=== PATIENT | female | born 1950 | race Caucasian/White ===

== ENCOUNTER → 2020-02-06 09:35 | Outpatient (REF) | payer MEDICARE, OTHER, SELFPAY ==
--- NOTE | 2020-02-06 09:30 | CA_ITS ---
Transthoracic Echocardiogram Patient (Last, First, Middle): Madison House J Gender: Female Date of : 1950 Age: 69 Procedure Date: 02/06/2020 Procedure Type: Transthoracic Echocardiogram Location: OP Height: 167.64 cm Weight: 73.48 kg BSA: 1.83 m2 Heart Rate: bpm BP: 124 / 72 mmHg Aviation Medicine Specialist: TRI Dasilva MD: Rich Daniels MD Occupational Therapy Specialist: Rich Daniels MD [place] [facility] [place]: Good ECG Rhythm: Sinus Conclusions: - 1. Normal LV systolic function with restrictive filling pattern 2. Moderately dilated left atrium 3. Ierr-mu-nqyuewld aortic stenosis 4. Moderate mitral annular calcification with mild mitral regurgitation 5. Normal RV systolic pressure 6. No pericardial effusion Findings Left Ventricle Normal left ventricular size, thickness, and systolic function. The visually estimated ejection fraction is between 60-65%. Spectral Doppler is indicative of a restrictive filling pattern. Right Ventricle Normal right ventricular cavity size and systolic function. Atria The left atrium is moderately dilated. There is no evidence of interatrial shunt. The right atrium is mildly dilated. Aortic Valve There is mild calcification of the aortic valve. There is mild thickening of the aortic valve. There is mild to moderate aortic valve stenosis. The peak aortic gradient is 22 mmHg.The mean gradient is 13 mmHg. There is no aortic valve regurgitation. Mitral Valve There is mild anterior and posterior mitral leaflet thickening. There is moderate mitral annular calcification. There is mild mitral valve regurgitation. There is no mitral valve stenosis. Pulmonic Valve The pulmonic valve was not well visualized. Tricuspid Valve Likely normal tricuspid valve structure and function. There is mild tricuspid valve regurgitation. The right ventricular systolic pressure is normal. The right ventricular systolic pressure is 25 mmHg. Normal right atrial pressure. There is no evidence of pulmonary hypertension. Great Vessels All visible segments of the aorta are normal in size. The pulmonary artery was not well visualized. Venous The inferior vena cava is normal in size and collapses greater than 50% with inspiration. Pericardium/Pleural There is no evidence of pericardial effusion. Prior Study Comparison No previous study in the last 5 years for comparison Measurements 2D Linear Measurements RVIDd: 2.76 RVIDd Index: 1.51 IVSd: 0.82 0.6-0.9/0.6-1.0 cm LVIDd: 4.79 3.9-5.3/4.2-5.9 cm LVIDd Index: 2.62 2.4-3.2/2.2-3.1 cm/m2 LVIDs: 3.45 2.0-3.6 cm LVPWd: 1.18 0.7-1.1 cm Ao Root: 2.60 2.1-3.5 cm LA Diam: 4.80 2.7-3.8/3.0-4.0 cm LAIDs Index: 2.62 1.5-2.3 cm/m2 LV Mass: 211.41 67-162/88-224 g LV Mass Index: 115.53 43-95/49-115 g/m2 LVOT Diam: 2.00 3.0+(-)1.3 cm 2D Systolic Function EF 4C: 63.10 >55% EF 2C: 62.80 >55% EF BiP: 61.90 >55% Mitral Valve E'Lateral: 7.35 E'Medial: 6.48 MR Vol - PW Dopp: 24.05 MR VTI: 1.85 MR ERO: 13.00 MR Alias Gene: 0.42 MR RAD: 0.50 Aortic Valve AoV Pk Gene: 2.33 AoV Mn Gene: 1.70 AoV VTI: 0.53 AoV Pk Grad: 22.00 Aov Mn Grad: 13.00 ARNOLD Cont.VTI: 1.00 LVOT LVOT Pk Gene: 0.78 LVOT Mn Gene: 0.52 LVOT VTI: 0.17 LVOT Pk Grad: 2.00 LVOT Mn Grad: 1.00 LVOT Diam: 2.00 LVOT Area: 3.14 Diastolic Function E'Medial: 6.48 E' Laterial: 7.35 Tricuspid Valve TR Pk Gene: 2.32 TR Pk Grad: 22.00 RA Press: 3.00 RVSP: 25.00 Great Vessels Aorta Ao Root-2D: 2.60 2.0-3.7 cm Ao Asc: 2.60 2.1-3.4 cm Ao Arch: 2.80 Updated in Other Vendor System with Status of Final Rich Daniels MD electronically signed on 02/06/2020 3:50:58 PM with status of Final
== END ==
LOC: HO.CARD 09:35
PROVIDERS: PCP Internal Medicine; Visit Provider Internal Medicine Cardiovascular Disease
DX: I49.5 Sick sinus syndrome (principal); I50.9 Heart failure, unspecified; I48.0 Paroxysmal atrial fibrillation; I25.119 Atherosclerotic heart disease of native coronary artery with unspecified angina pectoris; I35.0 Nonrheumatic aortic (valve) stenosis; Z95.0 Presence of cardiac pacemaker; Z95.5 Presence of coronary angioplasty implant and graft
CPT/HCPCS: 93312

== ENCOUNTER → 2020-03-09 13:12 | Outpatient (BNVA) | payer MEDICARE, SELFPAY | PROVIDERS: PCP Internal Medicine; Referring Provider Internal Medicine; Visit Provider Internal Medicine Cardiovascular Disease | DX: I48.0 Paroxysmal atrial fibrillation (principal); I25.10 Atherosclerotic heart disease of native coronary artery without angina pectoris; I50.30 Unspecified diastolic (congestive) heart failure; I35.0 Nonrheumatic aortic (valve) stenosis; Z79.01 Long term (current) use of anticoagulants; Z86.79 Personal history of other diseases of the circulatory system; Z45.018 Encounter for adjustment and management of other part of cardiac pacemaker; Z79.899 Other long term (current) drug therapy | CPT/HCPCS: 93005; 99212 ==

== ENCOUNTER → 2020-09-15 10:39 | Outpatient (BNVA) | payer MEDICARE, SELFPAY | PROVIDERS: PCP Internal Medicine; Referring Provider Internal Medicine; Visit Provider Internal Medicine Cardiovascular Disease | DX: Z45.018 Encounter for adjustment and management of other part of cardiac pacemaker (principal); I48.0 Paroxysmal atrial fibrillation; I25.10 Atherosclerotic heart disease of native coronary artery without angina pectoris; I50.30 Unspecified diastolic (congestive) heart failure; I35.0 Nonrheumatic aortic (valve) stenosis | CPT/HCPCS: 99212 ==

== ENCOUNTER → 2021-02-07 11:15 | Outpatient (REF) | payer BC, SELFPAY ==
--- NOTE | 2021-02-07 11:20 | CA_ITS ---
Transthoracic Echocardiogram Patient (Last, First, Middle): Madison House J Gender: Female Date of : 1950 Age: 70 Procedure Date: 02/07/2021 Procedure Type: Transthoracic Echocardiogram Location: OP Height: 165.1 cm Weight: 70.31 kg BSA: 1.78 m2 Heart Rate: bpm BP: 118 / 62 mmHg Non Clinical Advisor: Referring MD: Rich Daniels MD Symptoms: I35.0 - Nonrheumatic aortic (valve) stenosis Study Quality: Good ECG Rhythm: Sinus Conclusions: - The left ventricular systolic function is normal. The calculated ejection fraction is 55% by biplane method. - The left atrium is severely dilated. - There is mild to moderate aortic valve stenosis. - There is mild mitral valve regurgitation. Findings Left Ventricle Normal left ventricular cavity size. There is normal left ventricular wall thickness. The left ventricular systolic function is normal. The calculated ejection fraction is 55% by biplane method. There is no evidence of regional wall motion abnormalities. Diastolic function is indeterminate on the basis of available data. E/E prime ratio is >15, consistent with elevated filling pressures. Right Ventricle There is a pacemaker wire seen in the right ventricle. Atria The left atrium is severely dilated. The right atrium is normal in size. Aortic Valve There is moderate calcification of the aortic valve. There is mild to moderate aortic valve stenosis. The peak aortic velocity is 2.25 m/s with a calculated peak gradient of 20 mmHg. The mean gradient is 10 mmHg. The aortic valve area is 1.23 cm2. There is no aortic valve regurgitation. Dimensionless index 0.36. Stroke volume index 33cc. Mitral Valve There is mild mitral annular calcification. There is mild mitral valve regurgitation. There is no mitral valve stenosis. Pulmonic Valve The pulmonic valve was not well visualized. Tricuspid Valve Normal tricuspid valve structure. There is mild tricuspid valve regurgitation. The pulmonary artery systolic pressure is normal. Great Vessels The aortic annulus, sinuses of valsalva, and asc aorta are normal in size. Venous The inferior vena cava is normal in size and collapses greater than 50% with inspiration. Pericardium/Pleural There is no evidence of pericardial effusion. Prior Study Comparison No significant change compared to prior study dated: 02/06/2020. Measurements 2D Linear Measurements Ao Root: 2.90 2.1-3.5 cm LVOT Diam: 2.00 3.0+(-)1.3 cm 2D Systolic Function EF 4C: 52.00 >55% EF 2C: 59.60 >55% EF BiP: 55.40 >55% Mitral Valve MV Pk E: 1.32 MV Decel Time: 199.00 E'Lateral: 10.70 E'Medial: 6.96 E/E' Med: 19.00 E/E' Lat: 12.30 PHT: 58.00 MVA PHT: 3.79 Decel [place]: 6.63 Aortic Valve AoV Pk Gene: 2.25 AoV Mn Gene: 1.44 AoV VTI: 0.49 AoV Pk Grad: 20.00 Aov Mn Grad: 10.00 ARNOLD Cont.VTI: 1.23 LVOT LVOT Pk Gene: 0.81 LVOT Mn Gene: 0.53 LVOT VTI: 0.19 LVOT Pk Grad: 3.00 LVOT Mn Grad: 1.00 LVOT Diam: 2.00 LVOT Area: 3.14 Diastolic Function MV Pk E: 1.32 E'Medial: 6.96 E/E' Med: 19.00 E' Laterial: 10.70 E/E' Lat: 12.30 Right Ventricle TVS' Gene: 12.00 Tricuspid Valve TR Pk Gene: 2.56 TR Pk Grad: 26.00 Great Vessels Aorta Ao Root-2D: 2.90 2.0-3.7 cm Ao Asc: 2.60 2.1-3.4 cm Pulmonary Valve PV Pk Gene: 0.96 Peak PV Grad: 4.00 Updated in Other Vendor System with Status of Final Albert Crouch MD electronically signed on 02/07/2021 1:52:05 PM with status of Final
== END ==
LOC: HO.CARD 11:15
PROVIDERS: PCP Internal Medicine; Visit Provider Internal Medicine Cardiovascular Disease
DX: I35.0 Nonrheumatic aortic (valve) stenosis (principal)
CPT/HCPCS: 93306

== ENCOUNTER → 2021-02-15 14:26 | Outpatient (BNVA) | payer BC, SELFPAY | PROVIDERS: Visit Provider Internal Medicine Cardiovascular Disease | DX: Z45.018 Encounter for adjustment and management of other part of cardiac pacemaker (principal); I48.0 Paroxysmal atrial fibrillation; I25.10 Atherosclerotic heart disease of native coronary artery without angina pectoris; I50.30 Unspecified diastolic (congestive) heart failure; I35.0 Nonrheumatic aortic (valve) stenosis | CPT/HCPCS: 93005 ==

== ENCOUNTER → 2021-08-16 11:02 | Outpatient (BNVA) | payer BC, SELFPAY | PROVIDERS: PCP Internal Medicine; Visit Provider Internal Medicine Cardiovascular Disease | DX: Z45.018 Encounter for adjustment and management of other part of cardiac pacemaker (principal); I48.0 Paroxysmal atrial fibrillation; I50.30 Unspecified diastolic (congestive) heart failure; I25.10 Atherosclerotic heart disease of native coronary artery without angina pectoris; I35.0 Nonrheumatic aortic (valve) stenosis | CPT/HCPCS: 93005 ==

== ENCOUNTER → 2022-02-06 08:21 | Outpatient (REF) | payer BC, SELFPAY ==
--- NOTE | 2022-02-06 08:26 | CA_ITS ---
Transthoracic Echocardiogram Patient (Last, First, Middle): Madison House J Gender: Female Date of : 1950 Age: 71 Procedure Date: 02/06/2022 Procedure Type: Transthoracic Echocardiogram Location: OP Height: 167.64 cm Weight: 74.84 kg BSA: 1.84 m2 Heart Rate: 65 bpm BP: 125 / 65 mmHg Case Specialist: KENYON Referring MD: Rich Daniels MD Paper Cup Machine Operator: Rich Daniels MD Symptoms: I35.0 - Nonrheumatic aortic (valve) stenosis Study Quality: Good ECG Rhythm: Sinus Conclusions: - 1. Normal LV systolic function with grade 3 diastolic dysfunction 2. At least moderate left atrial enlargement 3. Moderate aortic stenosis with paradoxical low-flow 4. Normal RV systolic pressure 5. No gross pericardial effusion Findings Left Ventricle Normal left ventricular size and systolic function. There is mildly increased left ventricular wall thickness. The visually estimated ejection fraction is between 55-60%. Spectral Doppler is indicative of a restrictive filling pattern. Elevated filling pressures. E/E prime ratio is >15, consistent with elevated filling pressures. Evidence suggests grade III (severe) diastolic dysfunction. Right Ventricle Normal right ventricular cavity size and systolic function. There is a pacemaker wire seen in the right ventricle. Atria The left atrium is moderately dilated. There is no evidence of interatrial shunt. The right atrium is normal in size. A pacemaker wire is identified in the right atrium. Aortic Valve There is moderate calcification of the aortic valve. There is moderate thickening of the aortic valve. There is moderate aortic valve stenosis. The mean gradient is 17 mmHg. There is no aortic valve regurgitation. dimensionless index calculated at 0.33. Mitral Valve There is mild anterior and moderate posterior mitral leaflet thickening. There is moderate mitral annular calcification. There is trace mitral valve regurgitation. There is no mitral valve stenosis. Pulmonic Valve The pulmonic valve was not well visualized. Tricuspid Valve Likely normal tricuspid valve structure and function. There is mild tricuspid valve regurgitation. The right ventricular systolic pressure is normal. The right ventricular systolic pressure is 17 mmHg. Normal right atrial pressure. There is no evidence of pulmonary hypertension. Great Vessels All visible segments of the aorta are normal in size. The pulmonary artery was not well visualized. Venous The inferior vena cava is normal in size and collapses greater than 50% with inspiration. Pericardium/Pleural There is no evidence of pericardial effusion. Prior Study Comparison Changes noted compared to prior study dated: 02/07/2021. aortic stenosis is moderate Measurements 2D Linear Measurements IVSd: 1.20 0.6-0.9/0.6-1.0 cm LVIDd: 4.06 3.9-5.3/4.2-5.9 cm LVIDd Index: 2.21 2.4-3.2/2.2-3.1 cm/m2 LVIDs: 3.25 2.0-3.6 cm LVPWd: 1.22 0.7-1.1 cm LA Diam: 5.00 2.7-3.8/3.0-4.0 cm LAIDs Index: 2.72 1.5-2.3 cm/m2 LV Mass: 213.38 67-162/88-224 g LV Mass Index: 115.97 43-95/49-115 g/m2 LVOT Diam: 1.80 3.0+(-)1.3 cm 2D Systolic Function EF 4C: 59.40 >55% EF 2C: 52.70 >55% Mitral Valve MV Pk E: 1.32 MV PK A: 0.33 MV Decel Time: 183.00 E/A: 4.00 E'Lateral: 6.64 E'Medial: 5.77 E/E' Med: 22.90 E/E' Lat: 19.90 PHT: 54.00 MVA PHT: 4.07 Decel [place]: 7.19 Aortic Valve AoV Pk Gene: 2.36 AoV Mn Gene: 1.68 AoV VTI: 0.59 AoV Pk Grad: 22.00 Aov Mn Grad: 17.00 ARNOLD Cont.VTI: 0.83 LVOT LVOT Pk Gene: 0.80 LVOT Mn Gene: 0.55 LVOT VTI: 0.19 LVOT Pk Grad: 3.00 LVOT Mn Grad: 2.00 LVOT Diam: 1.80 LVOT Area: 2.54 Diastolic Function MV Pk E: 1.32 MV Pk A: 0.33 E/A: 4.00 E'Medial: 5.77 E/E' Med: 22.90 E' Laterial: 6.64 E/E' Lat: 19.90 Right Ventricle TAPSE (mm): 19.50 TVS' Gene: 10.40 Tricuspid Valve TR Pk Gene: 1.89 TR Pk Grad: 14.00 RA Press: 3.00 RVSP: 17.00 Great Vessels Aorta Sinus of Valsalva: 3.00 2.0-3.5 cm Ao Asc: 3.50 2.1-3.4 cm Pulmonary Valve PV Pk Gene: 1.10 Peak PV Grad: 5.00 Updated in Other Vendor System with Status of Final Rich Daniels MD electronically signed on 02/06/2022 6:51:38 PM with status of Final
== END ==
LOC: HO.CARD 08:21
PROVIDERS: PCP Internal Medicine; Visit Provider Internal Medicine Cardiovascular Disease
DX: I35.0 Nonrheumatic aortic (valve) stenosis (principal)
CPT/HCPCS: 93306

== ENCOUNTER → 2022-02-27 14:12 | Outpatient (BNVA) | payer BC, SELFPAY | PROVIDERS: PCP Internal Medicine; Visit Provider Internal Medicine Cardiovascular Disease | DX: Z45.018 Encounter for adjustment and management of other part of cardiac pacemaker (principal); I50.30 Unspecified diastolic (congestive) heart failure; I35.0 Nonrheumatic aortic (valve) stenosis; I25.10 Atherosclerotic heart disease of native coronary artery without angina pectoris; I48.0 Paroxysmal atrial fibrillation | CPT/HCPCS: 93005; 93280 ==

== ENCOUNTER → 2022-08-24 10:28 | Outpatient (BNVA) | payer BC, SELFPAY | PROVIDERS: PCP Internal Medicine; Referring Provider Internal Medicine; Visit Provider Internal Medicine Cardiovascular Disease | DX: I48.92 Unspecified atrial flutter (principal); I73.9 Peripheral vascular disease, unspecified; I25.10 Atherosclerotic heart disease of native coronary artery without angina pectoris; I50.30 Unspecified diastolic (congestive) heart failure; I35.0 Nonrheumatic aortic (valve) stenosis; Z95.0 Presence of cardiac pacemaker | CPT/HCPCS: 93005; 93280 ==

== ENCOUNTER → 2022-08-30 08:53 | Outpatient (BNVA) | payer BC, SELFPAY | PROVIDERS: PCP Internal Medicine; Visit Provider Internal Medicine Cardiovascular Disease | DX: Z13.89 Encounter for screening for other disorder (principal) ==

== ENCOUNTER → 2022-09-01 12:26 | Day surgery (SDC) | payer BC, SELFPAY ==
--- NOTE | 2022-08-31 11:03 | HO.ANESPROP2 ---
HPI - Anesthesia Eval Consult details Narrative: 71yo F for Cardioversion Eliquis for afib Pacer in situ [facility] Active Problems Active Problems: All Active Problems (Updated 08/24/22 @ 11:22 by Rich Daniels MD) Claudication (Acute) Atrial flutter (Acute) Paroxysmal atrial fibrillation (Acute) Sick sinus syndrome (Acute) Cardiac pacemaker in situ (Acute) CAD (coronary artery disease) (Acute) (HFpEF) heart failure with preserved ejection fraction (Acute) Aortic stenosis (Acute) Hyperlipidemia (Acute) HTN (hypertension) (Acute) Past Medical History Medical History (HFpEF) heart failure with preserved ejection fraction Aortic stenosis CAD (coronary artery disease) Cardiac pacemaker in situ HTN (hypertension) Hyperlipidemia Paroxysmal atrial fibrillation Sick sinus syndrome Surgical History Surgical History Stented coronary artery Meds Allergies Allergy/AdvReac Type Severity Reaction Status Date / Time codeine [CODEINE] Allergy Unknown TACHYCARDIA, Verified 08/24/22 11:01 HIVES, DIZZINESS Home Medications Medication Instructions Recorded Confirmed Last Taken Type citalopram 10 mg tablet 10 mg PO DAILY 03/09/20 08/24/22 Unknown History citalopram 20 mg tablet 20 mg PO DAILY 03/09/20 08/24/22 Unknown History latanoprost 0.005 % eye drops drp ophthalmic (eye) 03/09/20 08/24/22 Unknown History rosuvastatin 10 mg tablet 10 mg PO BEDTIME 03/09/20 08/24/22 Unknown History Exam Exam Date and Time: August 31, 2022 1103 Narrative Narrative: EKG 08/2022 apid heart rate with rapid atrial activity with irregular rhythm most consistent with atrial flutter with variable conduction with later part of EKG showing ventricular pacing Cardiac Device Check 08/2022 Details: Dual-chamber [place] pacemaker in place programmed in DDDR at 70 beats per minute.? Atrial telemetry shows persistent atrial flutter, unknown duration.? Atrial sensitivity was changed to 0.4 mV.? Atrial pacing thresholds were not checked.? Ventricular pacing thresholds adequate and in our capture mode.? Ventricular sensing is adequate.? Pacing lead impedance is stable.? Battery life is excellent. ECHO 02/2022 Conclusions: - 1. Normal LV systolic function with grade 3 diastolic? dysfunction? 2. At least moderate left atrial enlargement ? 3. Moderate aortic stenosis with paradoxical low-flow? 4. Normal RV systolic pressure ? 5. No gross pericardial effusion ? ? ? Assessment and Plan Assessment Anesthesia Assessment: Chart Reviewed
[2022-09-01 06:23] VITALS: BMI 26.6
--- NOTE | 2022-09-01 12:15 | MHC.SHP ---
Pre-Procedural Eval Section A Date of Service: 09/01/22 The patient is an INPATIENT: No Changes since office visit: Yes Patient answered all questions; No Cold of Flu in the past 2 weeks, No New Medical Problems and No Changes in Medication The History & Physical has been completed within 30 days and I have reviewed it.: Yes Section B Chief Complaint: Unspecified atrial flutter Allergies: Allergies Allergy/AdvReac Type Severity Reaction Status Date / Time codeine [CODEINE] Allergy Unknown TACHYCARDIA, Verified 08/24/22 11:01 HIVES, DIZZINESS Plan I have reviewed the history and physical and performed a pertinent physical examination on my patient. No changes have occurred unless specified. Time Spent With Patient Time: Total time managing care of this patient today ____ minutes.
[2022-09-01 12:44] VITALS: BP 131/80; PULSE 78; RESP 18; TEMP 36.3; O2SAT 98
--- NOTE | 2022-09-01 12:58 | PC.NURSE ---
dr hernandez at beside interrogating pacemaker pt nsr denies pain cardioversion cancelled f/u with dr patel september 25 pt aware
--- NOTE | 2022-09-01 13:06 | PM.EVENT ---
Event Note Date of Service: 09/01/22 Event Note: Patient presented for cardioversion. However is noted to be in normal rhythm. Pacemaker was interrogated and confirmed that patient was in atrially paced rhythm. Atrial pacing thresholds were checked and were excellent and reprogrammed. Pacing rate was increased from 65 beats per minute to 70 beats per minute Time Spent With Patient Time: Total time managing care of this patient today ____ minutes.
== END ==
PROVIDERS: PCP Internal Medicine; Visit Provider Internal Medicine Cardiovascular Disease
DX: I48.92 Unspecified atrial flutter (principal); Z53.8 Procedure and treatment not carried out for other reasons; Z79.01 Long term (current) use of anticoagulants; Z95.0 Presence of cardiac pacemaker

== ENCOUNTER 2022-09-13 09:55 | Outpatient (REF) | payer BC, SELFPAY ==
--- NOTE | ~2022-09-13 | US_ITS ---
EXAMINATION: NONINVASIVE ASSESSMENT OF THE ARTERIES OF BOTH LOWER EXTREMITIES WITH BILATERAL LOWER EXTREMITY DUPLE CLINICAL INFORMATION: Atherosclerotic disease TECHNIQUE: Bilateral lower extremity Doppler techniques with wave form analysis and measurement of velocities in the common femoral, profunda femoral, superficial femoral, popliteal and tibial arteries. The study was performed only at rest. COMPARISON: None FINDINGS: a) AT REST: RIGHT LEG: . Right direct duplex Doppler findings: Calcified plaque. Mild luminal narrowing of the distal superficial femoral artery. * Common femoral artery: 124 cm/s, Diastolic flow reversal: Yes * Superficial femoral artery (proximal, mid, distal): 7976 and 53 cm/s, Diastolic flow reversal: Biphasic waveform * Popliteal artery: 32 cm/s, Diastolic flow reversal: Biphasic waveform * Posterior tibial artery: 46 cm/s, Diastolic flow reversal: Biphasic waveform LEFT LEG: Left direct duplex Doppler findings: Calcified plaque. Mild luminal narrowing of the distal superficial femoral artery. * Common femoral artery: 98 cm/s, Diastolic flow reversal: Yes * Superficial femoral artery (proximal, mid, distal): 110, 83 and 47 cm/s, Diastolic flow reversal: Triphasic proximally and biphasic distally. * Popliteal artery: 29 cm/s, Diastolic flow reversal: Biphasic * Posterior tibial artery: 59 cm/s, Diastolic flow reversal: Biphasic * US/US arterial duplex LE BI IMPRESSION: Mild atherosclerotic disease. Bilateral calcified plaque and mild luminal narrowing of the distal superficial femoral arteries. No hemodynamically significant stenosis.
== END 2022-09-13 09:56 | disposition home or self-care (01) ==
LOC: HO.US 09:55
PROVIDERS: PCP Internal Medicine; Visit Provider Internal Medicine Cardiovascular Disease
DX: I25.10 Atherosclerotic heart disease of native coronary artery without angina pectoris (principal); I73.9 Peripheral vascular disease, unspecified
CPT/HCPCS: 93925

== ENCOUNTER → 2022-09-25 11:25 | Outpatient (BNVA) | payer BC, SELFPAY | PROVIDERS: PCP Internal Medicine; Referring Provider Internal Medicine; Visit Provider Internal Medicine Cardiovascular Disease | DX: I48.0 Paroxysmal atrial fibrillation (principal); Z95.0 Presence of cardiac pacemaker | CPT/HCPCS: 93005; 93280 ==

== ENCOUNTER → 2022-12-13 23:59 | Outpatient (BNV) | payer BC, SELFPAY ==
--- NOTE | 2022-12-18 08:56 | A.OFFVIS_ITS ---
Intake Intake Visit Reasons: Remote device check- [facility] Allergies codeine [CODEINE] Allergy (Unknown, Verified 09/25/22 11:37) TACHYCARDIA, HIVES, DIZZINESS PFSH Medical History (HFpEF) heart failure with preserved ejection fraction Aortic stenosis CAD (coronary artery disease) Cardiac pacemaker in situ HTN (hypertension) Hyperlipidemia Paroxysmal atrial fibrillation Sick sinus syndrome Surgical History Stented coronary artery Office Procedures Cardiac Device Check Cardiac Device Check Details: Remote pacemaker report generated 12/13/2022. Pacemaker function is adequate. T otal burden of atrial fibrillation less than 1% [id number] Cardiac Device Interrogation, pacemaker Procedure code (CPT) selection complete Coding Level of Care Code Procedure Only Diagnoses CPT Codes Cardiac Device Check - Cardiac Device 12: [id number] Cardiac Device Interroga tion, pacemaker ([id number])
== END ==
PROVIDERS: PCP Internal Medicine; Visit Provider Internal Medicine Cardiovascular Disease
DX: I48.0 Paroxysmal atrial fibrillation (principal); Z95.0 Presence of cardiac pacemaker
CPT/HCPCS: 93294

== ENCOUNTER → 2023-03-07 10:46 | Outpatient (REF) | payer MEDICARE, SELFPAY ==
--- NOTE | 2023-03-07 10:48 | CA_ITS ---
Transthoracic Echocardiogram Patient (Last, First, Middle): Madison House J Gender: Female Date of : 1950 Age: 72 Procedure Date: 03/07/2023 Procedure Type: Transthoracic Echocardiogram Location: OP Height: 165.1 cm Weight: 72.58 kg BSA: 1.80 m2 Heart Rate: 70 bpm BP: 116 / 78 mmHg Auto Appraiser: DARSHANA Referring MD: Rich Daniels MD Clinical Resource Director: Rich Daniels MD Symptoms: I35.0 - Nonrheumatic aortic (valve) stenosis Study Quality: Adequate ECG Rhythm: Sinus Conclusions: - 1. Normal LV ejection fraction of 60 65% with grade 3 diastolic dysfunction 2. Severely dilated left atrium 3. Moderate to severe aortic stenosis 4. Mild mitral regurgitation 5. Upper limits of normal RV systolic pressure 6. Upper limits of normal ascending aortic size 7. No gross pericardial effusion Findings Left Ventricle Normal left ventricular size, thickness, and systolic function. The visually estimated ejection fraction is between 60-65%. Spectral Doppler is indicative of a restrictive filling pattern. E/E prime ratio is >15, consistent with elevated filling pressures. Evidence suggests grade III (severe) diastolic dysfunction. Right Ventricle Normal right ventricular cavity size and systolic function. There is a pacemaker wire seen in the right ventricle. Atria The left atrium is severely dilated. There is no evidence of interatrial shunt. The right atrium is mildly dilated. A pacemaker wire is identified in the right atrium. Aortic Valve There is moderate calcification of the aortic valve. There is moderate thickening of the aortic valve. There is moderate to severe aortic valve stenosis. The mean gradient is 23 mmHg. The aortic valve area is 0.86 cm2. There is no aortic valve regurgitation. dimensionless index is at 0.27 consistent with moderate to severe aortic stenosis Mitral Valve There is mild anterior and moderate posterior mitral leaflet thickening. There is moderate mitral annular calcification. There is mild mitral valve regurgitation. There is no mitral valve stenosis. Pulmonic Valve The pulmonic valve is likely normal. Tricuspid Valve Normal tricuspid valve structure. There is mild tricuspid valve regurgitation. Normal right atrial pressure. There is no evidence of pulmonary hypertension. Great Vessels The pulmonary artery was not well visualized. Venous The inferior vena cava is normal in size and collapses greater than 50% with inspiration. Pericardium/Pleural There is no evidence of pericardial effusion. Prior Study Comparison Changes noted compared to prior study dated: 02/06/2022. aortic stenosis is moderate to severe Measurements 2D Linear Measurements IVSd: 1.15 0.6-0.9/0.6-1.0 cm LVIDd: 4.61 3.9-5.3/4.2-5.9 cm LVIDd Index: 2.56 2.4-3.2/2.2-3.1 cm/m2 LVIDs: 2.58 2.0-3.6 cm LVPWd: 0.79 0.7-1.1 cm LA Diam: 5.50 2.7-3.8/3.0-4.0 cm LAIDs Index: 3.06 1.5-2.3 cm/m2 LV Mass: 190.90 67-162/88-224 g LV Mass Index: 106.05 43-95/49-115 g/m2 LVOT Diam: 2.00 3.0+(-)1.3 cm 2D Systolic Function EF 4C: 68.70 >55% EF 2C: 54.10 >55% EF BiP: 62.50 >55% Mitral Valve MV VTI: 0.33 MV Pk Gene: 1.52 MV Mn Gene: 0.79 MV Pk Grad: 9.00 MV Mn Grad: 3.00 MV Pk E: 1.35 MV PK A: 0.41 MV Decel Time: 161.00 E/A: 3.30 E'Lateral: 6.37 E'Medial: 5.50 E/E' Med: 24.50 E/E' Lat: 21.20 PHT: 47.00 MVA PHT: 4.68 MVA Continuity: 1.99 Decel [place]: 8.39 Aortic Valve AoV Pk Gene: 3.14 AoV Mn Gene: 2.27 AoV VTI: 0.76 AoV Pk Grad: 39.00 Aov Mn Grad: 23.00 ARNOLD Cont.VTI: 0.86 LVOT LVOT Pk Gene: 0.91 LVOT Mn Gene: 0.65 LVOT VTI: 0.21 LVOT Pk Grad: 3.00 LVOT Mn Grad: 2.00 LVOT Diam: 2.00 LVOT Area: 3.14 Diastolic Function MV Pk E: 1.35 MV Pk A: 0.41 E/A: 3.30 E'Medial: 5.50 E/E' Med: 24.50 E' Laterial: 6.37 E/E' Lat: 21.20 Right Ventricle TAPSE (mm): 22.20 TVS' Gene: 13.10 Tricuspid Valve TR Pk Gene: 2.95 TR Pk Grad: 35.00 RA Press: 3.00 RVSP: 38.00 Great Vessels Aorta Sinus of Valsalva: 2.50 2.0-3.5 cm Ao Asc: 3.50 2.1-3.4 cm Pulmonary Veins Pulm Vein S/D 0.60 Pulmonary Valve PV Pk Gene: 0.89 Peak PV Grad: 3.00 Updated in Other Vendor System with Status of Final Rich Daniels MD electronically signed on 03/07/2023 3:36:01 PM with status of Final
== END ==
LOC: HO.CARD 10:46
PROVIDERS: PCP Internal Medicine; Visit Provider Internal Medicine Cardiovascular Disease
DX: I35.0 Nonrheumatic aortic (valve) stenosis (principal)
CPT/HCPCS: 93306

== ENCOUNTER → 2023-03-07 10:48 | Outpatient (BNV) | payer MEDICARE, SELFPAY | PROVIDERS: PCP Internal Medicine; Visit Provider Internal Medicine Cardiovascular Disease | DX: I35.0 Nonrheumatic aortic (valve) stenosis (principal) | CPT/HCPCS: 93306 ==

== ENCOUNTER → 2023-03-14 23:59 | Outpatient (BNV) | payer MEDICARE, SELFPAY ==
--- NOTE | 2023-03-14 15:46 | MHC.OFFVIS ---
Intake Intake Visit Reasons: Remote Device Check- [facility] Allergies codeine [CODEINE] Allergy (Unknown, Verified 09/25/22 11:37) TACHYCARDIA, HIVES, DIZZINESS PFSH Medical History (HFpEF) heart failure with preserved ejection fraction Aortic stenosis CAD (coronary artery disease) Cardiac pacemaker in situ HTN (hypertension) Hyperlipidemia Paroxysmal atrial fibrillation Sick sinus syndrome Surgical History Stented coronary artery Office Procedures Cardiac Device Check Cardiac Device Check Details: Remote pacemaker report generated 03/14/2023. Pacemaker function is adequate. Total burden of atrial fibrillation less than 1% [id number] Cardiac Device Interrogation, pacemaker Procedure code (CPT) selection complete Coding Level of Care Code Procedure Only CPT Codes Cardiac Device Check - Cardiac Device 12: [id number] Cardiac Device Interrogation, pacemaker ([id number])
== END ==
PROVIDERS: PCP Internal Medicine; Visit Provider Internal Medicine Cardiovascular Disease
DX: I48.0 Paroxysmal atrial fibrillation (principal); Z95.0 Presence of cardiac pacemaker
CPT/HCPCS: 93294

== ENCOUNTER 2023-04-02 12:20 | Outpatient (REF) | payer BC, SELFPAY ==
[2023-04-02 13:51] LABS: Hemoglobin 10.8 g/dl (12.0-16.0); Mean Corpuscular Volume 97.7 fL (80.0-98.0)
[2023-04-02 13:53] LABS: Hematocrit 33.6 % (37.0-47.0); Mean Corpuscular HGB Conc 32.1 g/dl (31.0-35.0); Mean Corpuscular Hemoglobin 31.4 pg (27.0-33.0); Mean Platelet Volume 12.8 fL (9.4-12.3); Red Blood Count 3.44 X10*6/uL (4.20-5.50); Red Cell Distribution Width 12.8 % (11.0-16.0)
[2023-04-02 14:06] LABS: PLT ABN DIST 1; Platelet Count 84 X10*3/uL (160-400)
[2023-04-02 14:10] LABS: Anion Gap 12 (12-20); Blood Urea Nitrogen 27 mg/dL (9-16); Calcium 9.4 mg/dL (8.4-10.2); Carbon Dioxide 30 mmol/L (22-29); Chloride 106 mmol/L (96-108); Estimated Glomerular Filt Rate 60; Glucose Random 89 mg/dL (60-115); Potassium 4.6 mmol/L (3.3-5.1); Sodium 143 mmol/L (135-145)
== END 2023-04-02 12:21 | disposition home or self-care (01) ==
LOC: HO.LAB 12:20
PROVIDERS: PCP Internal Medicine; Visit Provider Internal Medicine Cardiovascular Disease
DX: I48.0 Paroxysmal atrial fibrillation (principal); I25.10 Atherosclerotic heart disease of native coronary artery without angina pectoris; I50.30 Unspecified diastolic (congestive) heart failure; I35.0 Nonrheumatic aortic (valve) stenosis; Z95.0 Presence of cardiac pacemaker
CPT/HCPCS: 36415; 80048; 85027; 93005; 93280

== ENCOUNTER 2023-04-02 12:20 | Outpatient (AMB) | payer BC, SELFPAY ==
--- NOTE | 2023-04-02 12:34 | MHC.OFFVIS ---
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 She continues to walk about 3 miles every day without any symptoms. Denies any exertional chest pain or shortness of breath. Denies any exertional lightheadedness. Denies any orthopnea, PND, leg edema. Complains of swelling of her fingers. Also complains of the tip of the 3rd toe on the right to be black. She denies any obvious claudication symptoms. Denies any prolonged palpitation irregular heartbeat. No lightheadedness, syncope. Recent echocardiogram showed moderately severe aortic stenosis. She has no bleeding issues or neurologic events. [facility]LY [facility] Medical History Aortic stenosis Hyperlipidemia HTN (hypertension) (HFpEF) heart failure with preserved ejection fraction Sick sinus syndrome Cardiac pacemaker in situ Paroxysmal atrial fibrillation CAD (coronary artery disease) Surgical History Stented coronary artery Review of Systems Const Denies chills, Denies fatigue, Denies fever(s), Denies frequent falls, Denies weakness, Denies weight gain and Denies weight loss ENT Denies dizziness Card Denies chest pain, Denies leg edema, Denies lightheadedness, Denies palpitations, Denies dyspnea, Denies dyspnea on exertion, Denies orthopnea and Denies other (loss of consciousness) Resp Denies cough, Denies dyspnea and Denies dyspnea on exertion GI Denies hematochezia and Denies change in stool character Musc Denies abnormal gait, Denies muscle weakness, Denies numbness, Denies radiating pain into limb and Denies tingling Neuro Denies abnormal gait, Denies dizziness, Denies frequent falls, Denies numbness, Denies tingling and Denies weakness Endo Denies fatigue and Denies palpitations Physical Exam Vital Signs: Last Vital Signs Pulse 70 04/02/23 12:36 BP 120/74 04/02/23 12:36 BMI result Body Mass Index 26.7 Const General: cooperative, comfortable, alert, awake, Physically active and well groomed Nutritional Appearance: average body habitus Orientation/consciousness: patient oriented x3 Limitations: no limitations Neck Neck: Yes trachea midline, Yes supple and Yes no JVD Resp Effort & Inspection: normal respiratory effort Auscultation: clear to auscultation bilaterally, no crackles and no wheezes Cardio Jugular venous distension: no JVD Palpation: normal PMI Rhythm: abnormal rhythm irregularly irregular Heart sounds: S1 normal heart sound present, S2 normal heart sound present and Murmur heart sound present systolic late, decrescendo and crescendo GI Auscultation: normal bowel sounds Skin General skin exam: no rashes or lesions noted Neuro General: patient oriented x3 and no focal motor deficits Extrem General: Yes no clubbing, cyanosis or edema and Yes other (Good distal pulses but noted purplish lesions on the left 2nd toe) Psych Appearance: grossly normal Office Procedures Cardiac Device Check Cardiac Device Check Details: Dual-chamber [facility] pacemaker in place. Programmed in DDDR at 70 beats per minute. Atrial pacing 97% of the time. Ventricular pacing 10% of time. Overall burden of mode switch 2.8% with noted mostly atrial tachycardia. Atrial pacing thresholds are excellent. Ventricular pacing thresholds adequate. Atrial ventricular sensing is adequate. Pacing lead impedance is stable. Battery life is at about 5 years [id number] Cardiac Device Check, pacemaker dual lead Procedure code (CPT) selection complete EKG Details: EKG shows atrially paced, ventricularly sensed rhythm with normal QT interval [id number], Complete Assessment & Plan Assessment & Plan (1) Paroxysmal atrial fibrillation: Code(s): I48.0 - Paroxysmal atrial fibrillation Plan: Paroxysmal atrial fibrillation without any obvious symptoms with overall burden which is minimal. She has intermittent episode of atrial tachycardia. Discussed the structural nature of atrial fibrillation atrial arrhythmias. She understands agrees. Continue sotalol therapy which has helped to maintain predominantly AV synchrony which has helped her with heart failure syndrome. Semi annual renal function test should be pursued. Continue full oral anticoagulation, currently on Eliquis 5 mg b.i.d.. She is tolerating this well. CHADSVASc score of 4-5. (2) Cardiac pacemaker in situ: Comment: dual-chamber [facility]ashi pacemaker placement 2006 Code(s): Z95.0 - Presence of cardiac pacemaker Plan: Cardiac pacemaker in-situ for sick sinus syndrome. Pacemaker is working well. Will follow remotely in 3 months. Follow up in the clinic in 6 months time. (3) CAD (coronary artery disease): Code(s): I25.10 - Atherosclerotic heart disease of [place] coronary artery without angina pectoris Plan: CAD with prior stenting to the circumflex artery with nonobstructive disease by last cardiac catheterization with no symptoms of angina. Continue aggressive medical therapy. Currently on full oral anticoagulation Eliquis and with therefore avoid aspirin therapy to reduce bleeding risk. Continue aggressive blood pressure control which is currently well optimized. Continue statin therapy with target goal LDL at 60 mg/dL. Encouraged to continue to participate in physical activity as tolerated advised to call me with any new symptoms. Patient has discoloration of her right 3rd toe suggestive of gangrene and possible small vascular disease. Will recommend to follow-up with vascular surgery for further workup (4) (HFpEF) heart failure with preserved ejection fraction: Code(s): I50.30 - Unspecified diastolic (congestive) heart failure Plan: Heart failure preserved ejection fraction, clinically euvolemic and well compensated. Clinically has benefited from rhythm control approach will continue pursue the same. Continue current low-dose Lasix therapy as needed. Daily weight monitoring avoidance of salt loading was discussed advised to call me with any new symptoms. (5) Aortic stenosis: Comment: [id number] aortic stenosis by echocardiogram February 2020 Code(s): I35.0 - Nonrheumatic aortic (valve) stenosis Plan: Aortic stenosis which is moderately severe without any obvious symptoms. Cardinal symptoms associated with aortic stenosis were discussed. Advised to call me with any. Follow-up echocardiogram in 6 months time. Aggressive risk factor modifications advised. Will follow up in the clinic in 6 months time, sooner p.r.n.. Thank you for allowing me to partake in her care Orders: Orders Basic Metabolic Panel Today I48.0 - Paroxysmal atrial fibrillation Complete Blood Count no Diff Today I48.0 - Paroxysmal atrial fibrillation CA echo transthoracic complete 6 Months I35.0 - Nonrheumatic aortic (valve) stenosis Referrals Vascular Surgery Referral I73.9 - Peripheral vascular disease, unspecified Coding Level of Care Code Est Pt Level 4 (88680) Diagnoses Paroxysmal atrial fibrillation I48.0 Cardiac pacemaker in situ Z95.0 CAD (coronary artery disease) I25.10 (HFpEF) heart failure with preserved ejection fraction I50.30 Aortic stenosis I35.0 CPT Codes Cardiac Device Check - Cardiac Device 2: [id number] Cardiac Device Check, pacemaker dual lead ([id number]) EKG - CPT: 40806-[id number], Complete ([id number])
[2023-04-02 12:36] VITALS: BP 120/74; PULSE 70; BMI 26.7
== END 2023-04-02 13:06 | disposition home or self-care (01) ==
PROVIDERS: Visit Provider Internal Medicine Cardiovascular Disease
DX: I48.0 Paroxysmal atrial fibrillation (principal); Z95.0 Presence of cardiac pacemaker; I25.10 Atherosclerotic heart disease of native coronary artery without angina pectoris; I50.30 Unspecified diastolic (congestive) heart failure; I35.0 Nonrheumatic aortic (valve) stenosis; R94.31 Abnormal electrocardiogram [ECG] [EKG]
CPT/HCPCS: 93010; 93280; 99214

== ENCOUNTER 2023-04-26 09:34 | Outpatient (AMB) | payer BC, SELFPAY ==
--- NOTE | 2023-04-26 09:35 | MHC.OFFVIS ---
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 Pt states that shes had wounds on her both feet on her toes for about a year on and off now. She states that her toes are very painful and irritated and are starting to turn a purple color. 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 She has a remote history of smoking and he is a nondiabetic. Of note she is being maintained on Eliquis for paroxysmal AFib. She does have back pain issues and does report occasional numbness of the feet. She has no difficulty ambulating distances. In addition she notes that her toes often field cold to her. She has been following podiatry. Now presents to us for vascular evaluation. [facility] Medical History Aortic stenosis Hyperlipidemia HTN (hypertension) (HFpEF) heart failure with preserved ejection fraction Sick sinus syndrome Cardiac pacemaker in situ Paroxysmal atrial fibrillation CAD (coronary artery disease) Surgical History Stented coronary artery Review of Systems Const All systems reviewed & are unremarkable except as noted in HPI and below Reports no additional complaints ENT Reports Normal hearing present Card Denies chest pain, Denies chest pain at rest, Denies chest pain with activity and Denies pedal edema Resp Denies cough GI Denies abdominal pain Musc Denies abnormal gait, Denies muscle cramps and Denies radiating pain into limb Skin/Breast Denies skin ulcer and Denies wounds Neuro Reports Normal hearing present and Denies abnormal gait Psych Reports no additional complaints Physical Exam Const General: cooperative, healthy appearing and comfortable Orientation/consciousness: oriented to person, oriented to place and oriented to time HEENT Head: Yes normal to inspection Neck Neck: Yes normal visual inspection Carotids: no bruits Chest Chest palpation & inspection: normal inspection of the chest Resp Effort & Inspection: normal respiratory effort and able to speak in complete sentences Auscultation: clear to auscultation bilaterally, no crackles, no rales, no rhonchi and no wheezes Cardio Other: Bilateral palpable dorsalis pedis pulse Rate: regular rate Rhythm: regular rhythm Heart sounds: S1 normal heart sound present and S2 normal heart sound present Bruits: no carotid bruits Peripheral pulses: Peripheral pulses 2+ throughout GI Inspection: Yes normal to inspection Skin Other: Right 3rd toe blister darkened area at tip Obvious Castillo's toe deformity bilateral Wounds: no wounds Hair: normal Neuro General: oriented to person, oriented to place and oriented to time Cranial nerves: Yes CN's II-XII intact bilaterally and Yes Normal hearing present Cognition (Neuro): normal cognition Motor exam (neuro): 5/5 motor strength present throughout Extrem Other: venous exam: No significant superficial varicosities or spider telangiectasias, minimal edema General: No clubbing, No cyanosis and No edema Psych Appearance: grossly normal Mental Status: mental status grossly normal Speech and movement: Normal speech and movement present Assessment & Plan Assessment & Plan (1) Toe ulcer: Code(s): L97.509 - Non-pressure chronic ulcer of other part of unspecified foot with unspecified severity Qualifiers: Laterality: right Non-pressure ulcer stage: unspecified non-pressure ulcer stage Qualified Code(s): L97.519 - Non-pressure chronic ulcer of other part of right foot with unspecified severity Plan: In short this appears to be more of a blistered area on the right 3rd toe. She does have palpable arterial pulses. It does not appear to be vascular in nature. We did have a discussion about appropriately fitting shoe wear. In addition she will require podiatry follow-up. I do believe there is an element of neuropathy secondary to her back pain and she does describe some numbness of the feet. Should symptoms persist may benefit from a neurologic evaluation as well as her neuropathy may lead to insensate feet and abrasions secondary to friction. This was all discussed with the patient she demonstrated clear understanding of this. She will follow up with us on an as-needed basis (2) Raynauds disease: Code(s): I73.00 - Raynaud's syndrome without gangrene Qualifiers: Raynaud?s-associated gangrene presence: without gangrene Qualified Code(s): I73.00 - Raynaud's syndrome without gangrene Plan: In short the patient may have an element of Raynaud's syndrome. I have discussed the pathophysiology with the patient, inclusive of spasming of the vessels and change in color of digits from white, red, and blue. We have discussed prevention inclusive of protection hand and feet at all times, reduction of caffeine intake, and reduction of stressors. Also smoking cessation may help improve issues. At the current time the patient appears to be stable. Should this persist may need follow-up with Rheumatology and use a calcium channel more. The patient will follow up with us on an as-needed basis. Coding Level of Care Code New Pt Level 4 (55334) Diagnoses Ulcer of toe of right foot, unspecified ulcer stage L97.519 Laterality: right Non-pressure ulcer stage: unspecified non-pressure ulcer stage Raynaud's disease without gangrene I73.00 Raynaud?s-associated gangrene presence: without gangrene
== END 2023-04-26 09:57 | disposition home or self-care (01) ==
PROVIDERS: PCP Internal Medicine; Visit Provider Surgery Vascular Surgery
DX: L97.519 Non-pressure chronic ulcer of other part of right foot with unspecified severity (principal); I73.00 Raynaud's syndrome without gangrene
CPT/HCPCS: 99204

== ENCOUNTER → 2023-04-26 09:34 | Outpatient (BNVA) | payer BC, SELFPAY | PROVIDERS: PCP Internal Medicine; Visit Provider Surgery Vascular Surgery ==

== ENCOUNTER → 2023-06-13 23:59 | Outpatient (BNV) | payer BC, SELFPAY ==
--- NOTE | 2023-06-18 14:05 | MHC.OFFVIS ---
Intake Intake Visit Reasons: Remote Device Check- [facility] Allergies codeine [CODEINE] Allergy (Unknown, Verified 04/26/23 09:39) TACHYCARDIA, HIVES, DIZZINESS PFSH Medical History Aortic stenosis Hyperlipidemia HTN (hypertension) (HFpEF) heart failure with preserved ejection fraction Sick sinus syndrome Cardiac pacemaker in situ Paroxysmal atrial fibrillation CAD (coronary artery disease) Surgical History Stented coronary artery Office Procedures Cardiac Device Check Cardiac Device Check Details: Remote pacemaker report generated 06/13/2023. Pacemaker function is adequate. Battery life is at 1.2 years. Episodes of atrial fibrillation/flutter about 7.8% of the time [id number] Cardiac Device Interrogation, pacemaker Procedure code (CPT) selection complete Assessment & Plan Assessment & Plan (1) Cardiac pacemaker in situ: Comment: dual-chamber [facility] pacemaker placement 2006 Code(s): Z95.0 - Presence of cardiac pacemaker Plan: See above Coding Level of Care Code Procedure Only Diagnoses Cardiac pacemaker in situ Z95.0 CPT Codes Cardiac Device Check - Cardiac Device 12: [id number] Cardiac Device Interrogation, pacemaker ([id number])
== END ==
PROVIDERS: PCP Internal Medicine; Visit Provider Internal Medicine Cardiovascular Disease
DX: I48.0 Paroxysmal atrial fibrillation (principal); Z95.0 Presence of cardiac pacemaker
CPT/HCPCS: 93294

== ENCOUNTER 2023-07-03 11:19 | Outpatient (REF) | payer BC, SELFPAY ==
[2023-07-03 11:36] LABS: Hematocrit 30.9 % (37.0-47.0); Hemoglobin 10.1 g/dl (12.0-16.0); Mean Corpuscular HGB Conc 32.7 g/dl (31.0-35.0); Mean Corpuscular Hemoglobin 31.3 pg (27.0-33.0); Mean Corpuscular Volume 95.7 fL (80.0-98.0); Mean Platelet Volume 11.9 fL (9.4-12.3); Red Blood Count 3.23 X10*6/uL (4.20-5.50); Red Cell Distribution Width 13.4 % (11.0-16.0)
[2023-07-03 11:43] LABS: Platelet Count 94 X10*3/uL (160-400)
[2023-07-03 12:00] LABS: B Type Natriuretic Peptide 158 pg/mL (<100)
== END 2023-07-03 11:20 | disposition home or self-care (01) ==
LOC: HO.LAB 11:19
PROVIDERS: Visit Provider Internal Medicine Cardiovascular Disease
DX: I35.0 Nonrheumatic aortic (valve) stenosis (principal); E78.5 Hyperlipidemia, unspecified; I48.92 Unspecified atrial flutter; I48.0 Paroxysmal atrial fibrillation; I49.5 Sick sinus syndrome; R06.02 Shortness of breath; I11.0 Hypertensive heart disease with heart failure; I50.30 Unspecified diastolic (congestive) heart failure
CPT/HCPCS: 36415; 83880; 85027

== ENCOUNTER → 2023-07-25 13:27 | Outpatient (REF) | payer BC, SELFPAY ==
--- NOTE | 2023-07-25 13:33 | CA_ITS ---
Transthoracic Echocardiogram Amended Patient (Last, First, Middle): Madison House J Gender: Female Date of : 1950 Age: 72 Procedure Date: 07/25/2023 Procedure Type: Transthoracic Echocardiogram Location: OP Height: 165.1 cm Weight: 72.12 kg BSA: 1.79 m2 Heart Rate: bpm BP: 108 / 68 mmHg Sorter Packer: [id number] Referring MD: Rich Daniels MD Symptoms: I48.92 - Unspecified atrial flutter Study Quality: Adequate ECG Rhythm: Undetermined Conclusions: - The left ventricular systolic function is low normal. The visually estimated ejection fraction is between 50-55%. - LV peak GLS -10.4%. - The left atrium is severely dilated. - There is moderate to severe aortic valve stenosis (paradoxical low flow, low gradient). (due to technical issues, report being re-signed) Findings Left Ventricle Normal left ventricular cavity size. The left ventricular systolic function is low normal. The visually estimated ejection fraction is between 50-55%. There is no evidence of regional wall motion abnormalities. Diastolic function is indeterminate on the basis of available data. There is mild septal asymmetric hypertrophy. LV peak GLS -10.4%. Right Ventricle Normal right ventricular cavity size and systolic function. There is a pacemaker wire seen in the right ventricle. Atria The left atrium is severely dilated. The right atrium is normal in size. Aortic Valve There is severe calcification of the aortic valve. There is moderate to severe aortic valve stenosis. The peak aortic velocity is 3.04 m/s with a calculated peak gradient of 37 mmHg. The mean gradient is 23 mmHg. The aortic valve area is 0.83 cm2. There is no aortic valve regurgitation. Dimensionless index 0.26. Stroke volume index 30 mL/m2. Mitral Valve There is mild mitral annular calcification. There is mild mitral valve regurgitation. There is no mitral valve stenosis. Pulmonic Valve There is trace pulmonic valve regurgitation. Tricuspid Valve There is mild tricuspid valve regurgitation. There is no evidence of pulmonary hypertension. Great Vessels The asc aorta is normal in size. Venous The inferior vena cava is normal in size and collapses greater than 50% with inspiration. Pericardium/Pleural There is no evidence of pericardial effusion. Prior Study Comparison Changes noted compared to prior study dated: 03/07/2023. LVEF is lower. Progression of aortic stenosis. Rhythm possibly atrial fibrillation. Measurements 2D Linear Measurements IVSd: 1.16 0.6-0.9/0.6-1.0 cm LVIDd: 4.37 3.9-5.3/4.2-5.9 cm LVIDd Index: 2.44 2.4-3.2/2.2-3.1 cm/m2 LVIDs: 2.78 2.0-3.6 cm LVPWd: 0.95 0.7-1.1 cm LA Diam: 4.70 2.7-3.8/3.0-4.0 cm LAIDs Index: 2.63 1.5-2.3 cm/m2 LV Mass: 196.71 67-162/88-224 g LV Mass Index: 109.90 43-95/49-115 g/m2 LVOT Diam: 2.00 3.0+(-)1.3 cm 2D Volumes LA Vol: 55.80 2D Systolic Function EF 4C: 61.60 >55% EF 2C: 63.80 >55% Mitral Valve MV Pk E: 1.45 MV PK A: 0.60 MV Decel Time: 173.00 E/A: 2.40 E'Lateral: 8.49 E'Medial: 6.31 E/E' Med: 23.00 E/E' Lat: 17.10 PHT: 51.00 MVA PHT: 4.31 Decel Pike: 8.41 Aortic Valve AoV Pk Gene: 3.04 AoV Mn Gene: 2.32 AoV VTI: 0.64 AoV Pk Grad: 37.00 Aov Mn Grad: 23.00 ARNOLD Cont.VTI: 0.83 LVOT LVOT Pk Gene: 0.80 LVOT Mn Gene: 0.58 LVOT VTI: 0.17 LVOT Pk Grad: 3.00 LVOT Mn Grad: 2.00 LVOT Diam: 2.00 LVOT Area: 3.14 Diastolic Function MV Pk E: 1.45 MV Pk A: 0.60 E/A: 2.40 E'Medial: 6.31 E/E' Med: 23.00 E' Laterial: 8.49 E/E' Lat: 17.10 Right Ventricle TAPSE (mm): 20.30 TVS' Gene: 11.20 Tricuspid Valve TR Pk Gene: 2.50 TR Pk Grad: 25.00 RA Press: 3.00 RVSP: 28.00 Great Vessels Aorta Sinus of Valsalva: 2.69 2.0-3.[address] Ridge: 2.06 1.7-3.4 cm Ao Asc: 3.50 2.1-3.4 cm Updated in Other Vendor System with Status of Final Albert Crouch MD electronically signed on 07/30/2023 12:02:18 PM with status of Final
== END ==
LOC: HO.CARD 13:27
PROVIDERS: PCP Internal Medicine; Visit Provider Internal Medicine Cardiovascular Disease
DX: I48.92 Unspecified atrial flutter (principal); I48.0 Paroxysmal atrial fibrillation; I49.5 Sick sinus syndrome; I35.0 Nonrheumatic aortic (valve) stenosis; I50.30 Unspecified diastolic (congestive) heart failure; R06.02 Shortness of breath
CPT/HCPCS: 93306; 93356

== ENCOUNTER → 2023-07-25 13:33 | Outpatient (BNV) | payer BC, SELFPAY | PROVIDERS: PCP Internal Medicine; Visit Provider Internal Medicine | DX: I48.92 Unspecified atrial flutter (principal); I35.0 Nonrheumatic aortic (valve) stenosis; I36.1 Nonrheumatic tricuspid (valve) insufficiency | CPT/HCPCS: 93306; 93356 ==

== ENCOUNTER → 2023-09-12 23:59 | Outpatient (BNV) | payer BC, SELFPAY ==
--- NOTE | 2023-09-12 10:12 | MHC.OFFVIS ---
Intake Visit Reasons: Remote device check- [facility] Allergies codeine [CODEINE] Allergy (Unknown, Verified 04/26/23 09:39) TACHYCARDIA, HIVES, DIZZINESS PFSH Medical History Aortic stenosis Hyperlipidemia HTN (hypertension) (HFpEF) heart failure with preserved ejection fraction Sick sinus syndrome Cardiac pacemaker in situ Paroxysmal atrial fibrillation CAD (coronary artery disease) Surgical History Stented coronary artery Office Procedures Cardiac Device Check Cardiac Device Check Details: Remote pacemaker report generated 09/12/2023. Pacemaker function is adequate. Episodes of atrial fibrillation with a burden of 9% [id number] Cardiac Device Interrogation, pacemaker Procedure code (CPT) selection complete Assessment & Plan Assessment & Plan (1) Cardiac pacemaker in situ: Comment: dual-chamber [facility] pacemaker placement 2006 Code(s): Z95.0 - Presence of cardiac pacemaker Category: Medical Plan: See above Coding Level of Care Code Procedure Only Diagnoses Cardiac pacemaker in situ Z95.0 CPT Codes Cardiac Device Check - Cardiac Device 12: [id number] Cardiac Device Interrogation, pacemaker ([id number])
== END ==
PROVIDERS: PCP Internal Medicine; Visit Provider Internal Medicine Cardiovascular Disease
DX: I48.91 Unspecified atrial fibrillation (principal); Z95.0 Presence of cardiac pacemaker
CPT/HCPCS: 93294

== ENCOUNTER 2023-09-24 10:04 | Outpatient (AMB) | payer BC, SELFPAY ==
[2023-09-24 10:10] VITALS: BP 110/64; PULSE 70; BMI 26.1
--- NOTE | 2023-09-24 10:10 | A.OFFVIS_ITS ---
Vital Signs 09/24/23 10:10 Height 5 ft 6 in Weight 161 lb 13.109 oz BMI 26.1 BP 110/64 Blood Pressure Location Lt brachial Position Sitting Pulse 70 Intake Visit Reasons: 6 mth f/up w/ pacer ck Telephone Recorder Required: No Accompanied by: Significant Other Allergies codeine [CODEINE] Allergy (Unknown, Verified 04/26/23 09:39) TACHYCARDIA, HIVES, DIZZINESS Medication List - Last Reconciled 09/24/23 by Rich Daniels MD apixaban (Eliquis) 5 mg PO BID citalopram 10 mg PO DAILY dorzolamide-timolol (PF) 2-0.5 % (Cosopt (PF)) 1 drp ophthalmic (eye) BID furosemide (Lasix) 20 mg PO DIRECTED 90 days latanoprost 0.005% drps ophthalmic (eye) rosuvastatin 10 mg PO BEDTIME sotalol 80 mg PO BID HPI Comments Details: Madison comes for follow-up, accompanied by her . In early June in July she was having increasing symptoms of shortness of breath with exertion and not able to go out for walks at the time a call or office. At that time we had increased her Lasix to 60 mg 3 times a week along with 40 mg on a daily basis. Since then now she says she has better walking capacity and goes out for a walk with her and can walk 3 miles. She recently traveled to [place] although and said that with flights including flights at home she gets significantly more short of breath. During June and July was having also symptoms of bilateral shoulder heaviness. Echocardiogram done around that time showed moderately severe aortic stenosis with valve area of 0.83 with a dimensionless index of 0.26 suggestive of moderately severe aortic stenosis with severely dilated left atrium and low normal LVEF of 50-55%. She has been taking all her medications. She denies any prolonged palpitation irregular heartbeat. No bleeding issues or neurologic events. [facility] Medical History Aortic stenosis Hyperlipidemia HTN (hypertension) (HFpEF) heart failure with preserved ejection fraction Sick sinus syndrome Cardiac pacemaker in situ Paroxysmal atrial fibrillation CAD (coronary artery disease) Surgical History Stented coronary artery Review of Systems Const Denies chills, Denies fatigue, Denies fever(s), Denies frequent falls, Denies weakness, Denies weight gain and Denies weight loss ENT Denies dizziness Card Denies chest pain, Denies leg edema, Denies lightheadedness, Denies palpitations, Denies dyspnea and Denies dyspnea on exertion Resp Denies cough, Denies dyspnea and Denies dyspnea on exertion GI Denies hematochezia Musc Denies abnormal gait, Denies muscle weakness, Denies numbness, Denies radiating pain into limb and Denies tingling Neuro Denies abnormal gait, Denies dizziness, Denies frequent falls, Denies numbness, Denies tingling and Denies weakness Endo Denies fatigue and Denies palpitations Physical Exam Vital Signs: Last Vital Signs Pulse 70 09/24/23 10:10 BP 110/64 09/24/23 10:10 BMI result Body Mass Index 26.1 Const General: cooperative, comfortable, alert, awake, Physically active and well groomed Nutritional Appearance: average body habitus Orientation/consciousness: patient oriented x3 Limitations: no limitations Neck Neck: Yes trachea midline, Yes supple and Yes no JVD Resp Effort & Inspection: normal respiratory effort Auscultation: clear to auscultation bilaterally, no crackles and no wheezes Cardio Jugular venous distension: no JVD Palpation: normal PMI Rate: regular rate Rhythm: regular rhythm Heart sounds: S1 normal heart sound present, S2 normal heart sound present and Murmur heart sound present systolic late, decrescendo and crescendo GI Auscultation: normal bowel sounds Skin General skin exam: no rashes or lesions noted Neuro General: patient oriented x3 and no focal motor deficits Extrem General: Yes no clubbing, cyanosis or edema and Yes other (Good distal pulses but noted purplish lesions on the left 2nd toe) Psych Appearance: grossly normal Office Procedures Cardiac Device Check Cardiac Device Check Details: Dual-chamber [employer] pacemaker in place. Programmed in DDDR at 70 beats per minute. Atrial pacing 99% of time. Minimal atrial fibrillation. Battery life is at about 1.1 years. Atrial ventricular capture thresholds adequate. Atrial ventricular sensing is adequate. Pacing lead impedance is stable. [id number] Cardiac Device Check, pacemaker dual lead Procedure code (CPT) selection complete EKG Details: EKG shows atrially paced rhythm with otherwise normal EKG with normal QT interval 60967-[id number], Complete Assessment & Plan Assessment & Plan (1) Exertional dyspnea: Code(s): R06.09 - Other forms of dyspnea Category: Medical Plan: Patient with persistent symptoms exertional shortness of breath especially going up and down the stairs which is affecting her lifestyle. Possibilities include worsening heart failure syndrome and/or related to aortic stenosis and/or worsening coronary artery disease. She requires further workup and out suggest her to undergo cardiac catheterization with hemodynamic assessment in the near future. If she does have significant aortic stenosis as documented by echocard iogram although paradoxical low-flow evaluation for transcatheter aortic valve replacement will be pursued. The risks, benefits, alternatives to cardiac catheterization was discussed with her. She understands and agrees. Blood work will be pursued in near future. Further treatment on the findings. She wants to traveled to [place] in the near future, can proceed with cardiac catheterization after she comes back. If she has sudden worsening she is advised to seek emergency care. Advised to avoid strenuous exertion. (2) Paroxysmal atrial fibrillation: Code(s): I48.0 - Paroxysmal atrial fibrillation Category: Medical Plan: Paroxysmal atrial fibrillation which has remained suppressed currently on sotalol therapy. She is done very well with rhythm control approach will continue pursue rhythm control approach. Continue sotalol therapy. Semi annual renal function test and EKGs required. Currently on full oral anticoagulation with Eliquis. Semi annual renal function test is recommended from that perspective as well. (3) Cardiac pacemaker in situ: Comment: dual-chamber [employer] pacemaker placement 2006 Code(s): Z95.0 - Presence of cardiac pacemaker Category: Medical Plan: Cardiac pacemaker in-situ for sick sinus syndrome. Patient pacing in the atrium 99% of time. Will continue monitor remotely. Pacemaker is functioning well otherwise. (4) CAD (coronary artery disease): Code(s): I25.10 - Atherosclerotic heart disease of [place] coronary artery without angina pectoris Category: Medical Plan: CAD with remote stenting. No recurrent symptoms of angina but has increasing symptoms shortness of breath which could represent progressive coronary artery disease. Currently on full oral anticoagulation Eliquis and therefore would avoid aspirin therapy. Continue statin therapy with target goal LDL less than 70 mg/dL. Blood pressure is currently well optimized. Further treatment based on the findings of cardiac catheterization. (5) (HFpEF) heart failure with preserved ejection fraction: Code(s): I50.30 - Unspecified diastolic (congestive) heart failure Category: Medical Plan: Heart failure preserved ejection fraction, clinically euvolemic and well compensated. She has done extremely well with rhythm control approach but also has require diuretic therapy. Recently her diuretics were increased because minimally elevated BNP and since then her symptoms have improved although heart failure symptoms could be related to worsening aortic stenosis and/or worsening coronary artery disease. Further evaluation with full hemodynamic assessment as well as cardiac catheterization as above. Continue current diuretic regimen. Daily weight monitoring avoidance of salt loading was discussed. She understa nds and agrees. (6) Aortic stenosis: Comment: [id number] aortic stenosis by echocardiogram February 2020 Code(s): I35.0 - Nonrheumatic aortic (valve) stenosis Category: Medical Plan: Aortic stenosis which appears to be moderately severe at this point time may be severe although by echocardiogram there is paradoxical low-flow. She has low global longitudinal strain which may suggest lower stroke volume as noted by gradients. Further determination by invasive means with cardiac catheterization. If she does have significant aortic stenosis will require transcatheter aortic valve replacement. Process of this was discussed in details. She understands and agrees. Follow up in the clinic after cardiac catheterization. Greater than 40 minutes was spent in managing his complex care. Coding Level of Care Code Est Pt Level 5 (66532) Diagnoses Exertional dyspnea R06.09 Paroxysmal atrial fibrillation I48.0 Cardiac pacemaker in situ Z95.0 CAD (coronary artery disease) I25.10 (HFpEF) heart failure with preserved ejection fraction I50.30 Aortic stenosis I35.0 CPT Codes Cardiac Device Check - Cardiac Device 2: [id number] Cardiac Device Check, pacemaker dual lead ([id number]) EKG - CPT: 40859-[id number], Complete ([id number])
== END 2023-09-24 10:57 | disposition home or self-care (01) ==
PROVIDERS: PCP Internal Medicine; Visit Provider Internal Medicine Cardiovascular Disease
DX: R06.09 Other forms of dyspnea (principal); I48.0 Paroxysmal atrial fibrillation; Z95.0 Presence of cardiac pacemaker; I25.10 Atherosclerotic heart disease of native coronary artery without angina pectoris; I50.30 Unspecified diastolic (congestive) heart failure; I35.0 Nonrheumatic aortic (valve) stenosis
CPT/HCPCS: 93010; 93280; 99215

== ENCOUNTER → 2023-09-24 10:04 | Outpatient (BNVA) | payer BC, SELFPAY | PROVIDERS: PCP Internal Medicine; Visit Provider Internal Medicine Cardiovascular Disease | DX: I48.0 Paroxysmal atrial fibrillation (principal); R06.09 Other forms of dyspnea; I25.10 Atherosclerotic heart disease of native coronary artery without angina pectoris; I50.30 Unspecified diastolic (congestive) heart failure; I35.0 Nonrheumatic aortic (valve) stenosis; Z79.01 Long term (current) use of anticoagulants; Z79.899 Other long term (current) drug therapy; Z45.018 Encounter for adjustment and management of other part of cardiac pacemaker | CPT/HCPCS: 93005; 93280 ==

== ENCOUNTER → 2023-11-06 23:59 | Outpatient (BNV) | payer BC, SELFPAY | PROVIDERS: PCP Internal Medicine; Visit Provider Internal Medicine Cardiovascular Disease | DX: I35.0 Nonrheumatic aortic (valve) stenosis (principal) | CPT/HCPCS: 93460; 99152 ==

== ENCOUNTER 2023-11-16 11:26 | Outpatient (AMB) | payer BC, SELFPAY ==
[2023-11-16 11:29] VITALS: BP 114/72; PULSE 97; BMI 26.5
--- NOTE | 2023-11-16 11:29 | MHC.OFFVIS ---
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 She underwent cardiac catheterization recently which showed normal filling pressures and nonobstructive CAD but severe aortic stenosis with mean gradient of 22 mm Hg and aortic valve area of 0.7 cm2. Findings consistent with echocardiogram. She continues to exertional shortness of breath chest pressure. No recurrent symptoms suggestive of atrial fibrillation. Taking all her medications. No bleeding issues or neurologic events. [facility] Medical History Aortic stenosis Hyperlipidemia HTN (hypertension) (HFpEF) heart failure with preserved ejection fraction Sick sinus syndrome Cardiac pacemaker in situ Paroxysmal atrial fibrillation CAD (coronary artery disease) Surgical History Stented coronary artery Review of Systems ENT Reports dizziness Card Denies chest pain, Denies chest pain at rest, Denies chest pain with activity, Denies rapid heart rate, Denies pedal edema, Denies edema, Denies leg edema, Denies lightheadedness, Denies palpitations, Denies dyspnea, Denies dyspnea on exertion and Denies orthopnea Resp Denies cough, Denies dyspnea and Denies dyspnea on exertion GI Denies hematochezia and Denies change in stool character Musc Denies abnormal gait, Reports limited range of motion, Reports muscle cramps, Denies muscle weakness, Denies numbness, Denies radiating pain into limb, Denies stiffness and Denies tingling Neuro Denies abnormal gait, Reports dizziness, Denies numbness and Denies tingling Endo Denies palpitations Physical Exam Vital Signs: Last Vital Signs Pulse 97 11/16/23 11:29 BP 114/72 11/16/23 11:29 BMI result Body Mass Index 26.5 Const General: cooperative, comfortable, alert, awake, Physically active and well groomed Nutritional Appearance: average body habitus Orientation/consciousness: patient oriented x3 Limitations: no limitations Neck Neck: Yes trachea midline, Yes supple and Yes no JVD Resp Effort & Inspection: normal respiratory effort Auscultation: clear to auscultation bilaterally, no crackles and no wheezes Cardio Jugular venous distension: no JVD Palpation: normal PMI Rate: regular rate Rhythm: regular rhythm Heart sounds: S1 normal heart sound present and Murmur heart sound present systolic late, decrescendo and crescendo GI Auscultation: normal bowel sounds Skin General skin exam: no rashes or lesions noted Neuro General: patient oriented x3 and no focal motor deficits Extrem General: Yes no clubbing, cyanosis or edema and Yes other (Good distal pulses but noted purplish lesions on the left 2nd toe) Psych Appearance: grossly normal Office Procedures Cardiac Device Check Cardiac Device Check Details: Dual-chamber [employer] pacemaker in place. Programmed in DDDR at 70 beats per minute. Atrial ventricular capture thresholds adequate. Atrial ventricular sensing is adequate. Pacing lead impedance stable. Battery life is 1 year. Noted few episodes of atrial fibrillation longest lasting 7 minutes. No other arrhythmias noted. [id number] Cardiac Device Check, pacemaker dual lead Procedure code (CPT) selection complete Assessment & Plan Assessment & Plan (1) Aortic stenosis: Comment: [id number] aortic stenosis by echocardiogram February 2020 Code(s): I35.0 - Nonrheumatic aortic (valve) stenosis Category: Medical Plan: Aortic stenosis which by cardiac catheterization appears to be severe. Her dimensionless index on echocardiogram 0.26 although findings overall consistent with severe aortic stenosis. She was symptoms of exertional shortness of breath chest discomfort. I think she would benefit from transcatheter aortic valve replacement. This was discussed with her. She has been referred to the valve team although she has not had any schedule appointments. Will refer her to Dr. Mahmood for further evaluation for transcatheter aortic valve replacement. The process of transcatheter aortic valve replacement was discussed. She understands it very well. Follow up in the clinic after the valve replacement. (2) CAD (coronary artery disease): Code(s): I25.10 - Atherosclerotic heart disease of [place] coronary artery without angina pectoris Category: Medical Plan: Coronary artery disease with prior stenting of the circumflex artery with nonobstructive disease by recent cardiac catheterization. Continue aggressive medical therapy. Currently on full oral anticoagulation with apixaban and therefore would avoid antiplatelet therapy. Blood pressure is well optimized. Continue statin therapy with target goal LDL less than 70 mg/dL. (3) (HFpEF) heart failure with preserved ejection fraction: Code(s): I50.30 - Unspecified diastolic (congestive) heart failure Category: Medical Plan: Heart failure preserved ejection fraction clinically euvolemic and well compensated current low-dose Lasix therapy. Continue the same. Has done very well with rhythm control approach will continue pursue rhythm control approach. Filling pressures are within acceptable limits. Daily weight monitoring avoidance of salt loading was discussed. She understands management well. (4) Paroxysmal atrial fibrillation: Code(s): I48.0 - Paroxysmal atrial fibrillation Category: Medical Plan: Paroxysmal atrial fibrillation, predominantly suppressed on therapy with sotalol. She is with rhythm control approach will continue pursue rhythm control approach. Continue sotalol therapy. Continue full oral anticoagulation, currently on Eliquis 5 mg b.i.d.. Semi annual renal function test should be pursued. (5) Cardiac pacemaker in situ: Comment: dual-chamber [employer] Shashi pacemaker placement 2006 Code(s): Z95.0 - Presence of cardiac pacemaker Category: Medical Plan: Cardiac pacemaker in-situ, working well. Reprogrammed for adequate functioning. Will follow remotely every 3 months. Follow up in the clinic in 6 months time. Tentative follow-up in 6 months unless she has had her transcatheter aortic valve replacement then will see her after echocardiogram. Thank you for allowing me to partake in the care Coding Level of Care Code Est Pt Level 4 (79951) Diagnoses Aortic stenosis I35.0 CAD (coronary artery disease) I25.10 (HFpEF) heart failure with preserved ejection fraction I50.30 Paroxysmal atrial fibrillation I48.0 Cardiac pacemaker in situ Z95.0 CPT Codes Cardiac Device Check - Cardiac Device 2: [id number] Cardiac Device Check, pacemaker dual lead ([id number])
== END 2023-11-16 11:50 | disposition home or self-care (01) ==
PROVIDERS: PCP Internal Medicine; Visit Provider Internal Medicine Cardiovascular Disease
DX: I35.0 Nonrheumatic aortic (valve) stenosis (principal); I25.10 Atherosclerotic heart disease of native coronary artery without angina pectoris; I50.30 Unspecified diastolic (congestive) heart failure; I48.0 Paroxysmal atrial fibrillation; Z95.0 Presence of cardiac pacemaker
CPT/HCPCS: 93280; 99214

== ENCOUNTER → 2023-11-16 11:26 | Outpatient (BNVA) | payer BC, SELFPAY | PROVIDERS: PCP Internal Medicine; Visit Provider Internal Medicine Cardiovascular Disease | DX: I35.0 Nonrheumatic aortic (valve) stenosis (principal); I25.10 Atherosclerotic heart disease of native coronary artery without angina pectoris; I50.30 Unspecified diastolic (congestive) heart failure; I48.0 Paroxysmal atrial fibrillation; Z79.01 Long term (current) use of anticoagulants; Z79.899 Other long term (current) drug therapy; Z45.018 Encounter for adjustment and management of other part of cardiac pacemaker | CPT/HCPCS: 93280 ==

== ENCOUNTER → 2023-12-12 23:59 | Outpatient (BNV) | payer BC, SELFPAY ==
--- NOTE | 2023-12-14 12:27 | MHC.OFFVIS ---
Intake Visit Reasons: Remote device check-St Shashi Allergies codeine [CODEINE] Allergy (Unknown, Verified 11/16/23 11:31) TACHYCARDIA, HIVES, DIZZINESS PFSH Medical History Aortic stenosis Hyperlipidemia HTN (hypertension) (HFpEF) heart failure with preserved ejection fraction Sick sinus syndrome Cardiac pacemaker in situ Paroxysmal atrial fibrillation CAD (coronary artery disease) Surgical History Stented coronary artery Office Procedures Cardiac Device Check Cardiac Device Check Details: Remote pacemaker report generated 12/11/2023. Pacemaker function is adequate. Total burden of atrial fibrillation at 1.4% [id number] Cardiac Device Interrogation, pacemaker Procedure code (CPT) selection complete Assessment & Plan Assessment & Plan (1) Cardiac pacemaker in situ: Comment: dual-chamber [employer]ashi pacemaker placement 2006 Code(s): Z95.0 - Presence of cardiac pacemaker Category: Medical Plan: See above Coding Level of Care Code Procedure Only Diagnoses Cardiac pacemaker in situ Z95.0 CPT Codes Cardiac Device Check - Cardiac Device 12: [id number] Cardiac Device Interrogation, pacemaker ([id number])
== END ==
PROVIDERS: PCP Internal Medicine; Visit Provider Internal Medicine Cardiovascular Disease
DX: I48.91 Unspecified atrial fibrillation (principal); Z95.0 Presence of cardiac pacemaker
CPT/HCPCS: 93294

== ENCOUNTER → 2024-03-12 23:59 | Outpatient (BNV) | payer BC, SELFPAY ==
--- NOTE | 2024-03-19 13:40 | MHC.OFFVIS ---
Intake Visit Reasons: Remote device check-[facility] Shashi Allergies codeine [CODEINE] Allergy (Unknown, Verified 11/16/23 11:31) TACHYCARDIA, HIVES, DIZZINESS PFSH Medical History Aortic stenosis Hyperlipidemia HTN (hypertension) (HFpEF) heart failure with preserved ejection fraction Sick sinus syndrome Cardiac pacemaker in situ Paroxysmal atrial fibrillation CAD (coronary artery disease) Surgical History Stented coronary artery Office Procedures Cardiac Device Check Cardiac Device Check Details: Remote pacemaker report generated 03/12/2024. Pacemaker function is adequate. [id number] Cardiac Device Interrogation, pacemaker Procedure code (CPT) selection complete Assessment & Plan Assessment & Plan (1) Cardiac pacemaker in situ: Comment: dual-chamber [employer] pacemaker placement 2006 Code(s): Z95.0 - Presence of cardiac pacemaker Category: Medical Plan: See above Coding Level of Care Code Procedure Only Diagnoses Cardiac pacemaker in situ Z95.0 CPT Codes Cardiac Device Check - Cardiac Device 12: [id number] Cardiac Device Interrogation, pacemaker ([id number])
== END ==
PROVIDERS: PCP Internal Medicine; Visit Provider Internal Medicine Cardiovascular Disease
DX: Z45.018 Encounter for adjustment and management of other part of cardiac pacemaker (principal)
CPT/HCPCS: 93294

== ENCOUNTER 2024-03-26 13:00 | Day surgery (SDC) | payer MEDICARE, SELFPAY ==
[2024-03-24 13:21] VITALS: BMI 26.5
--- NOTE | 2024-03-25 12:54 | HO.ANESPROP2 ---
Documented by User: Lia Munoz NP 03/25/24 13:01 HPI - Anesthesia Eval Consult details Narrative: 73yo F for Transesophageal Echocardiogram Severe aortic stenosis by echo and cath (ARNOLD=0.7). RALPH for TAVR w/u Eliquis for afib Pacer [facility] Active Problems Active Problems: All Active Problems Exertional dyspnea (Acute) Raynauds disease (Acute) Toe ulcer (Acute) Claudication (Acute) Atrial flutter (Acute) Paroxysmal atrial fibrillation (Acute) Sick sinus syndrome (Acute) Cardiac pacemaker in situ (Acute) CAD (coronary artery disease) (Acute) (HFpEF) heart failure with preserved ejection fraction (Acute) Aortic stenosis (Acute) Hyperlipidemia (Acute) HTN (hypertension) (Acute) Past Medical History Medical History (Updated 03/24/24 @ 13:17 by Kaela Platt RN) History of cardioversion Aortic stenosis Hyperlipidemia HTN (hypertension) (HFpEF) heart failure with preserved ejection fraction Sick sinus syndrome Cardiac pacemaker in situ Paroxysmal atrial fibrillation CAD (coronary artery disease) Surgical History Surgical History Stented coronary artery Social History Social History Patient Tobacco Use Status: Never used Tobacco Have you been hit, kicked, punched, or otherwise hurt by someone within the past year? If so, by whom?: No Are you DNR?: No Advance Directives: No Advance Directives Information Provided: Yes Recently lost weight without trying: No Nutrition Risks: No Nutritional Risk Meds Allergies Allergy/AdvReac Type Severity Reaction Status Date / Time codeine [CODEINE] Allergy Unknown TACHYCARDIA, Verified 11/16/23 11:31 HIVES, DIZZINESS Home Medications ?Medication ?Instructions ?Recorded ?Confirmed ?Last Taken ?Type citalopram 10 mg tablet 10 mg PO DAILY 03/09/20 03/24/24 03/26/24 History latanoprost 0.005 % eye drops 1 drp ophthalmic (eye) DAILY 03/09/20 03/24/24 03/25/24 History rosuvastatin 10 mg tablet 10 mg PO BEDTIME 03/09/20 03/24/24 03/25/24 History dorzolamide-timolol (PF) 2 %-0.5 % 1 drp ophthalmic (eye) BID 09/24/23 03/24/24 03/25/24 History eye drops in a dropperette (Cosopt (PF)) Exam Height,Weight and Vital Signs: Height 5 ft 6 in Weight 74.389 kg Narrative Narrative: Cardiac Device Check 03/2024 Details: Remote pacemaker report generated 03/12/2024. Pacemaker function is adequate. [id number] Cardiac Device Interrogation, pacemaker Procedure code (CPT) selection complete EKG 09/2023 EKG Details: EKG shows atrially paced rhythm with otherwise normal EKG with normal QT interval ECHO 06/2023 Conclusions: - The left ventricular systolic function is low normal. The visually estimated ejection fraction is between 50-55%. - LV peak GLS -10.4%. - The left atrium is severely dilated. - There is moderate to severe aortic valve stenosis (paradoxical low flow, low gradient). (due to technical issues, report being re-signed) Assessment and Plan Assessment Anesthesia Assessment: Chart Reviewed Documented by User: Gus Omalley MD 03/26/24 13:25 [facility] Past Medical History Medical History (Updated 03/24/24 @ 13:17 by Kaela Platt RN) History of cardioversion Aortic stenosis Hyperlipidemia HTN (hypertension) (HFpEF) heart failure with preserved ejection fraction Sick sinus syndrome Cardiac pacemaker in situ Paroxysmal atrial fibrillation CAD (coronary artery disease) Family History Family history of problems with anesthesia: No Surgical History Surgical History Stented coronary artery History of Problems with Anesthesia: No Social History Social History Patient Tobacco Use Status: Never used Tobacco Have you been hit, kicked, punched, or otherwise hurt by someone within the past year? If so, by whom?: No Are you DNR?: No Advance Directives: No Advance Directives Information Provided: Yes Recently lost weight without trying: No Nutrition Risks: No Nutritional Risk Meds Allergies Allergy/AdvReac Type Severity Reaction Status Date / Time codeine [CODEINE] Allergy Unknown TACHYCARDIA, Verified 11/16/23 11:31 HIVES, DIZZINESS Home Medications ?Medication ?Instructions ?Recorded ?Confirmed ?Last Taken ?Type citalopram 10 mg tablet 10 mg PO DAILY 03/09/20 03/24/24 03/26/24 History latanoprost 0.005 % eye drops 1 drp ophthalmic (eye) DAILY 03/09/20 03/24/24 03/25/24 History rosuvastatin 10 mg tablet 10 mg PO BEDTIME 03/09/20 03/24/24 03/25/24 History dorzolamide-timolol (PF) 2 %-0.5 % 1 drp ophthalmic (eye) BID 09/24/23 03/24/24 03/25/24 History eye drops in a dropperette (Cosopt (PF)) Exam Airway Mallampati Class: III TM Dist: >3cm Neck ROM: Full Assessment and Plan Assessment Anesthesia Assessment: Anesthesia Plan Discussed Final Anesthetic Review Family History of Problems with Anesthesia: No History of Problems with Anesthesia: No NPO: Yes ASA Class: III Final Preanesthetic Review: No Changes in Pt Med Stat, Meds/Allgs Chart Reviewed, Consent Obtained/Reviewed, Anes Risks/Benef Reviewed and DNR Form (If Appl.) Patient Risk: Intermediate Procedure Risk: Low Anesthetic Plan Anesthetic Plan: TIVA Disposition: Standard PACU
[2024-03-26] VITALS (7 sets, daily range): BP systolic 98–121; BP diastolic 36–69; PULSE 70–71; RESP 16–19; TEMP 36.2–36.9; O2SAT 96–100; BMI 26.8
--- NOTE | 2024-03-26 14:07 | CA_ITS ---
Transesophageal Echocardiogram Patient (Last, First, Middle): Madison House J Gender: Female Date of : 1950 Age: 73 Procedure Date: 03/26/2024 Procedure Type: Transesophageal Echocardiogram Location: OP Height: 162.56 cm Weight: kg Process Improvement Consultant: KYLIE Referring MD: Rich Daniels MD Ripening Room Operator: Rich Daniels MD Symptoms: EVALUATE AORTIC STENOSIS Conclusion: ??? 1. Severe aortic stenosis with planimetry valve area of 0.99 cm2 2. Normal LV ejection fraction 55-60% with grade 3 diastolic dysfunction 3. Severely dilated and boggy left atrium 4. Severe mitral calcification with mild mitral regurgitation 5. No intracardiac thrombi, masses, vegetation 6. No intracardiac shunting 7. No gross pericardial effusion Findings Procedure Information Consent was obtained prior to the procedure. Pre RALPH oral cavity was checked and revealed no overcrowding. The adult 3D probe was passed with no difficulty. This was a technically good study. Left Ventricle Normal left ventricular size and systolic function. There is mildly increased left ventricular wall thickness. The visually estimated ejection fraction is between 55-60%. Spectral Doppler is indicative of a restrictive filling pattern. Elevated filling pressures. Evidence suggests grade III (severe) diastolic dysfunction. Right Ventricle Normal right ventricular cavity size and systolic function. There is a pacemaker wire seen in the right ventricle. Atria The left atrium is severely dilated. There is no evidence of interatrial shunt. There is no evidence of a patent foramen ovale. There is no evidence of thrombus or mass in the left atrium. smoke formation seem in the left atrial cavity as well as left atrial appendage. Left atrial appendage was free of any thrombus but the left atrial appendage ejection velocity was significantly reduced. The left upper, left lower, right upper and right lower pulmonary in drained normally into the left atrium. The right atrium is mildly dilated. A pacemaker wire is identified in the right atrium. There is no evidence of thrombus or mass in the right atrium. The IVC and SVC drained normally into the right atrium with normal collapsibility suggestive of normal right atrial pressures. The atrial pacer lead extending from the SVC attached into the right atrial appendage. The ventricular pacing lead was traversing the right atrium through the tricuspid valve. Aortic Valve There is moderate calcification of the aortic valve. There is severe aortic valve stenosis. There is no aortic valve regurgitation. There was fusion of raphe between the right and noncoronary cusp as well as right and left coronary cusps with a planimeter valve area of 0.99 cm2 consistent with severe aortic stenosis. on transgastric view the dimensionless index was measured at 0.25 again suggestive of severe aortic stenosis Mitral Valve There is mild anterior and moderate posterior mitral leaflet thickening. The posterior mitral leaflet is immobile. There is severe mitral annular calcification. There is mild mitral valve regurgitation. There is no mitral valve stenosis. Pulmonic Valve The pulmonic valve is normal. There is trace to mild pulmonic valve regurgitation. Tricuspid Valve Normal tricuspid valve structure. There is mild tricuspid valve regurgitation. Tricuspid regurgitation envelope is inadequate for calculation of right ventricular systolic pressure. Normal right atrial pressure. Great Vessels All visible segments of the aorta are normal in size. Small plaque is seen in the ascending aorta, arch, and descending thoracic aorta. The visualized portions of the pulmonary artery and branches are normal. Venous The inferior vena cava is normal in size and collapses greater than 50% with inspiration. Pericardium/Pleural There is no evidence of pericardial effusion. Measurements Aortic Valve AoV Pk Gene: 2.66 AoV Mn Gene: 1.90 AoV VTI: 0.65 AoV Pk Grad: 28.00 Aov Mn Grad: 16.00 LVOT LVOT Pk Gene: 0.65 LVOT Mn Gene: 0.46 LVOT VTI: 0.16 LVOT Pk Grad: 2.00 LVOT Mn Grad: 1.00 Updated by Rich Daniels on 05:37 PM with Status of Final Rich Daniels MD electronically signed on 03/27/2024 5:37:18 PM with status of Final
--- NOTE | 2024-03-26 14:09 | MHC.SHP ---
Pre-Procedural Eval Section A - 24 Hr Update-Section A only Date of Service: 03/26/24 The patient is an INPATIENT: No Changes since office visit: Yes Patient answered all questions; No Cold of Flu in the past 2 weeks, No New Medical Problems and No Changes in Medication The patient has been examined within 24 hours of the surgical procedure. The History & Physical has been completed within 30 days and I have reviewed it.: Yes Section B - Complete if H&P > 30 days Chief Complaint: Unspecified diastolic (congestive) heart failure Allergies: Allergies Allergy/AdvReac Type Severity Reaction Status Date / Time codeine [CODEINE] Allergy Unknown TACHYCARDIA, Verified 11/16/23 11:31 HIVES, DIZZINESS Plan I have reviewed the history and physical and performed a pertinent physical examination on my patient. No changes have occurred unless specified. Time Spent With Patient Time: Total time managing care of this patient today ____ minutes.
== END 2024-03-26 15:37 | disposition home or self-care (01) ==
PROVIDERS: PCP Internal Medicine; Visit Provider Internal Medicine Cardiovascular Disease
PROC: (CPT 93312; principal; 2024-03-26 14:00)
DX: I35.0 Nonrheumatic aortic (valve) stenosis (principal); I34.81 Nonrheumatic mitral (valve) annulus calcification; I50.30 Unspecified diastolic (congestive) heart failure; I25.10 Atherosclerotic heart disease of native coronary artery without angina pectoris; Z95.0 Presence of cardiac pacemaker; Z79.899 Other long term (current) drug therapy
CPT/HCPCS: 93312; J2003; J2371; J2704

== ENCOUNTER → 2024-03-26 14:07 | Outpatient (BNV) | payer MEDICARE, SELFPAY | PROVIDERS: PCP Internal Medicine; Visit Provider Internal Medicine Cardiovascular Disease | DX: I35.0 Nonrheumatic aortic (valve) stenosis (principal); I35.8 Other nonrheumatic aortic valve disorders; I34.81 Nonrheumatic mitral (valve) annulus calcification; I36.1 Nonrheumatic tricuspid (valve) insufficiency | CPT/HCPCS: 93312; 93320; 93325 ==

== ENCOUNTER → 2024-05-16 12:46 | Outpatient (REF) | payer MEDICARE, SELFPAY ==
--- NOTE | 2024-05-16 12:49 | CA_ITS ---
Transthoracic Echocardiogram Patient (Last, First, Middle): Madison House J Gender: Female Date of : 1950 Age: 73 Procedure Date: 05/16/2024 Procedure Type: Transthoracic Echocardiogram Location: OP Height: 167.64 cm Weight: 76.66 kg BSA: 1.86 m2 Heart Rate: bpm BP: 118 / 72 mmHg Multimedia Educational Specialist: TO Referring MD: Jacky Mahmood MD Symptoms: S/P AVR Study Quality: Adequate ECG Rhythm: Sinus Conclusions: - The left ventricular systolic function is normal. The calculated ejection fraction is 56% by biplane method. - Evidence suggests grade III (severe) diastolic dysfunction. - A bioprosthetic aortic valve is present. The prosthetic aortic valve appears to be functioning normally. - There is moderate mitral annular calcification. Findings Left Ventricle Normal left ventricular cavity size. There is mildly increased left ventricular wall thickness. The left ventricular systolic function is normal. The calculated ejection fraction is 56% by biplane method. There is no evidence of regional wall motion abnormalities. Evidence suggests grade III (severe) diastolic dysfunction. Right Ventricle Normal right ventricular cavity size and systolic function. Atria The left atrium is severely dilated. The right atrium is normal in size. Aortic Valve A bioprosthetic aortic valve is present. The prosthetic aortic valve appears to be functioning normally. There is no aortic valve regurgitation. Mitral Valve There is moderate mitral annular calcification. There is mild mitral valve regurgitation. There is no mitral valve stenosis. Pulmonic Valve The pulmonic valve is likely normal. There is trace pulmonic valve regurgitation. Tricuspid Valve There is mild tricuspid valve regurgitation. There is no evidence of pulmonary hypertension. Great Vessels The asc aorta is normal in size. Venous The inferior vena cava is normal in size and collapses greater than 50% with inspiration. Pericardium/Pleural There is no evidence of pericardial effusion. Prior Study Comparison Changes noted compared to prior study dated: 03/26/2024. s/p TAVR. Measurements 2D Linear Measurements IVSd: 1.15 0.6-0.9/0.6-1.0 cm LVIDd: 4.41 3.9-5.3/4.2-5.9 cm LVIDd Index: 2.37 2.4-3.2/2.2-3.1 cm/m2 LVIDs: 2.96 2.0-3.6 cm LVPWd: 1.03 0.7-1.1 cm LA Diam: 4.90 2.7-3.8/3.0-4.0 cm LAIDs Index: 2.63 1.5-2.3 cm/m2 LV Mass: 208.44 67-162/88-224 g LV Mass Index: 112.07 43-95/49-115 g/m2 LVOT Diam: 2.00 3.0+(-)1.3 cm 2D Systolic Function EF 4C: 55.50 >55% EF 2C: 57.90 >55% EF BiP: 56.40 >55% Mitral Valve MV VTI: 0.34 MV Pk Egne: 1.68 MV Mn Gene: 0.78 MV Pk Grad: 11.00 MV Mn Grad: 3.00 MV Pk E: 1.42 MV PK A: 0.54 MV Decel Time: 183.00 E/A: 2.60 E'Lateral: 8.49 E'Medial: 4.90 E/E' Med: 29.00 E/E' Lat: 16.70 PHT: 54.00 MVA PHT: 4.07 MVA Continuity: 2.04 Decel [place]: 7.76 Aortic Valve AoV Pk Gene: 1.61 AoV Mn Gene: 1.12 AoV VTI: 0.35 AoV Pk Grad: 10.00 Aov Mn Grad: 5.00 ARNOLD Cont.VTI: 2.01 LVOT LVOT Pk Gene: 1.01 LVOT Mn Gene: 0.72 LVOT VTI: 0.22 LVOT Pk Grad: 4.00 LVOT Mn Grad: 2.00 LVOT Diam: 2.00 LVOT Area: 3.14 Diastolic Function MV Pk E: 1.42 MV Pk A: 0.54 E/A: 2.60 E'Medial: 4.90 E/E' Med: 29.00 E' Laterial: 8.49 E/E' Lat: 16.70 Right Ventricle TAPSE (mm): 23.50 TVS' Gene: 10.30 Tricuspid Valve TR Pk Gene: 2.46 TR Pk Grad: 24.00 RA Press: 3.00 RVSP: 27.00 Great Vessels Aorta Ao Asc: 3.50 2.1-3.4 cm Ao Arch: 2.20 Updated in Other Vendor System with Status of Final Albert Crouch MD electronically signed on 05/18/2024 11:21:28 AM with status of Final
--- OUTSIDE RECORDS SUMMARY | 2024-05-16 12:49 | XMS_ITS | Patient Health Record ---
[facility] Organization [facility] Address [address] [place] [address] Care Team Providers Care Buckram Sewer Name Role Phone Fam Carcamo Primary Care Provider Stephen Harmon Unavailable [phone] Allergies Allergen (clinical drug ingredient) Drug/Non Drug Allergy documented on EMR Reaction Allergy Type Onset Date Status codeine Codeine Unknown Drug Allergy Active Reason For Referral No Information Medications Medication SIG (Take, Route, Frequency, Duration) Notes Start Date End Date Status Omeprazole 20 MG 1 capsule 30 minutes before morning meal Orally Once a day Active Furosemide 20 MG 1 tablet Orally Once a day Active ZyrTEC 10 MG 1 tablet Orally Once a day Active Sotalol HCl 80 MG 1 tablet Orally ever y 12 hrs Active Crestor 10 MG 1 tablet Orally Once a day Active Eliquis 5 MG 1 tablet Orally Twic e a day Active Citalopram Hydrobromide 30 MG 1 capsule Orally Once a day Active Social History Tobacco Use: Social History Observation Description Date Details (start date - stop date) Former Smoker NA - NA Tobacco Use/Smoking Question Answer Notes Are you a: former smoker Additional Findings: Tobacco Non-User Current no n-smoker Alcohol Screen Question Answer Notes Did you have a drink containing alcohol in the p ast year? No Points 0 Interpretation Negative Tobacco use other than smoking: Question Answer Notes Are you an other tobacco user? No Problems Problem Type SNOMED Code ICD Code Onset Dates Problem Status W/U Status Risk Notes Problem Acquired hallux valgus (89816460) Hallux valgus (acquired), right foot (M20.11) Active confirmed Problem 586581653 Raynaud's disease without gangrene (I73.00) Active confirmed Plan Of Treatment Pending Test Test Name Order Date X ray : Foot, right 3V 10/06/2022 Insurance Providers Payer Name Payer Address Payer Phone Subscriber Number Group Number Insured Name Patient Relationship to Insured Coverage Start Date Coverage End Date [facility] 65 Medicare Preferred [address] [place] [address] [id number] Madison House Self - patient is the insured Medical (General) History Medical History History ICD Code Back,Hip,and Knee pain Measles Mumps Chicken pox Glaucoma Heart disease Transfusions Surgical History Surgery Date(Month/Year)
--- OUTSIDE RECORDS SUMMARY | 2024-05-16 12:49 | XMS_ITS | Continuity of Care Document ---
Author Organization [facility] Address [address] [place] [address]- Care Team Providers Care Wheel Aligner Name Role Phone Dona KING, Fam Jansen Primary Care Physician [phone] [place] [facility] [place]/24 [facility] Adult [address] [place] [address]- Encounter Type: Triage Allergies, Adverse Reactions, Alerts Substance Criticality Severity Reaction Reaction Severity Status codeine rash Active Immunizations Given and Recorded Vaccine Date Status Refusal Reason SARS-CoV-2(COVID-19)mRNA-LNP vac(iet361) 01/22/23 Recorded RSV vaccine, preF A-preF B, recombinant 12/29/22 R ecorded pneumococcal 20-valent conjugate vaccine 12/29/22 Recorded influenza virus vaccine, inactivated 12/29/22 Aubrey rded influenza virus vaccine, inactivated 01/11/22 Aubrey rded influenza virus vaccine, inactivated 01/30/21 Aubrey rded influenza virus vaccine, inactivated 01/07/20 Aubrey rded influenza virus vaccine, inactivated 03/03/19 Give n influenza virus vaccine, inactivated 02/01/18 Give n influenza virus vaccine, inactivated 02/18/11 Aubrey rded [id number] 12y+ bivalent booster vax 08/29/22 Recorded [id number] 12y+ bivalent booster vax 01/11/22 Recorded SARS-CoV-2 mRNA ([id number]) vax 08/04/21 Recorded SARS-CoV-2 (COVID-19) mRNA BNT-162b2 vac 01/30/21 Recorded SARS-CoV-2 (COVID-19) mRNA BNT-162b2 vac 07/17/20 Recorded SARS-CoV-2 (COVID-19) mRNA BNT-162b2 vac 06/24/20 Recorded Influenza Virus Vaccine (oldterm) 01/06/20 Recorde d Influenza Virus Vaccine (oldterm) 1 03/01/17 Given tetanus/diphtheria/pertussis, acel(Tdap) 10/15/18 Given Zoster Vaccine Live 12/17/16 Recorded pneumococcal 23-valent vaccine 12/12/16 Recorded pneumococcal 13-valent vaccine 12/13/15 Recorded 1Admin Note: fluzone high dose Medications albuterol CFC free 90 mcg/inh inhalation aerosol 1, puffs, Inhalation, 4 times a day, PRN, # 18 Gm, Refills 1, Tot. Refills 1, Maintenance, 10/23/22 4:37:00 PM EDT, Aerosol, Route to Pharmacy Electronically, [id number], [facility]/pharmacy #[id number], 167, cm, 10/23/22 16:19:00 EDT, Height, 69.4, kg, 06/18/21 15:46:00 EST, Dry Weight Start Date: 10/23/22 Stop Date: 12/22/22 Status: Ordered Quantity: 18.0 Unit: g Repeat number: 2 albuterol CFC free 90 mcg/inh inhalation aerosol 2, puffs, Inhalation, 4 times a day, PRN, 2 puffs four times a day as needed for dyspnea use with spacer chamber Please give spacer chamber, # 25 Gm, Refills 1, Tot. Refills 1, Maintenance, 04/23/21 11:01:00 AM EST, Aerosol, Route to Pharmacy Electronically, [id number], [id number], 168, cm, 04/23/21 6:59:00 EST, Height, 68, kg, 04/20/21 12:51:00 EST, DryWeight Start Date: 04/23/21 Status: Ordered Quantity: 25.0 Unit: g Repeat number: 2 citalopram 10 mg oral tablet 10 mg, 1, tablet, By Mouth, Daily, Take by one tablet mouth daily with 20mg tablet to equal total 30mg/day., # 90 tablet, Refills 3, Tot. Refills 3, Maintenance, 08/28/22 6:14:00 PM EDT, Route to Pharmacy Electronically, [facility], Partial fill upon patient request if the pres cription is for a schedule II opioid drug., 167, cm, 06/08/22 11:13:00 EST, Height, 69.4, kg, 06/18/21 15:46:00 EST, Dry Weight Start Date: 08/28/22 Status: Ordered Quantity: 90.0 Unit: tablet Repeat number: 4 citalopram 10 mg oral tablet 10 mg, 1, tablet, By Mouth, Daily, Take once daily with 20mg citalopram to equal 30mg daily, # 90 tablet, Refills 3, Tot. Refills 3, Maintenance, 06/29/23 10:37:00 AM EST, Route to Pharmacy Electronically, [facility], Partial fill upon patient request if the prescription is for a schedule II opioid drug., 167, cm, 06/29/23 10:18:00 EST, Height, 74.6, kg, 05/08/23 9:47:00 EST, Dry Weight Start Date: 06/29/23 Status: Ordered Quantity: 90.0 Unit: tablet Repeat number: 4 citalopram 20 mg oral tablet 20 mg, 1, tablet, By Mouth, Daily, Take daily with 10mg tablet, # 90 tablet, Refills 3, Tot. Refills 3, Maintenance, 06/29/23 10:38:00 AM EST, Route to Pharmacy Electronically, [facility], Partial fill upon patient request if the prescription is for a schedule II opioid drug.,167, cm, 06/29/23 10:18:00 EST, Height, 74.6, kg, 05/08/23 9:47:00 EST, Dry Weight Start Date: 06/29/23 Status: Ordered Quantity: 90.0 Unit: tablet Repeat number: 4 Eliquis 5 mg oral tablet 1 tablet = 5 mg, By Mouth, 2 times a day, # 60 tablet, 5 Refills, Maintenance, 04/11/21 5:56:00 PM EST, Tablet, Partial fill upon patient request if the prescription is for a schedule II opioid drug. Start Date: 04/11/21 Status: Ordered Quantity: 60.0 Unit: tablet Repeat number: 1 Fish Oil 1000 mg oral capsule 1 capsule = 1,000 mg, By Mouth, Daily, 0 Refills, Maintenance, 09/19/17 9:17:07 AM EDT Start Date: 09/19/17 Status: Ordered Repeat number: 1 furosemide 20 mg oral tablet 10 mg, 0.5, tablet, By Mouth, Every Sunday, Sunday and Sunday, Refills 0, Maintenance, 03/05/24 11:20:00 AM EDT, Partial fill upon patient request if the prescription is for a schedule II opioid drug. Start Date: 03/05/24 Status: Ordered Repeat number: 1 furosemide 20 mg oral tablet 1, tablet, By Mouth, Daily, # 90 tablet, Refills 3, Route to Pharmacy Electronically, [facility], 167, cm, 11/03/21 11:23:00 EDT, Height, 69.4, kg, 06/18/21 15:46:00 EST, Dry Weight Start Date: 11/15/21 Status: Ordered Quantity: 90.0 Unit: tablet Repeat number: 1 latanoprost 0.005% ophthalmic solution 1 drops, Daily in PM, right eye, # 2.5 mL, 0 Refills, Maintenance, 04/11/21 5:56:00 PM EST, Solution, Partial fill upon patient request if the prescription is for a schedule II opioid drug. Start Date: 04/11/21 Status: Ordered Quantity: 2.5 Unit: mL Repeat number: 1 Multivitamin By Mouth, Daily, 0 Refills, Maintenance, 04/11/21 6:01:00 PM EST, Partial fill upon patient request if the prescription is for a schedule II opioid drug. Start Date: 04/11/21 Status: Ordered Repeat number: 1 rosuvastatin 10 mg oral tablet 1 tablet = 10 mg, By Mouth, Daily, THIS IS THE CORRECT MEDICATION. NOT 20mg capsule., # 90 tablet, 3 Refills, Maintenance, 06/29/23 10:36:00 AM EST, Tablet, [facility], Partial fill upon patient request if the prescription is for a schedule II opioid drug., 167, cm, 06/29/23 10:18:00 EST, Height, 74.6, kg, 05/08/23 9:47:00 EST, Dry Weight Start Date: 06/29/23 Status: Ordered Quantity: 90.0 Unit: tablet Repeat number: 4 sotalol 80 mg oral tablet 80 mg, 1, tablet, By Mouth, 2 times a day, # 180 tablet, Refills 0, Maintenance, 09/06/22 8:40:00 AM EDT, Partial fill upon patient request if the prescription is for a schedule II opioid drug. Start Date: 09/06/22 Status: Ordered Quantity: 180.0 Unit: tablet Repeat number: 1 Zyrtec 10 mg oral tablet 1 tablet = 10 mg, By Mouth, Daily, # 30 tablet, 0 Refills, Maintenance, 09/23/14 8:58:59 AM EDT, Tablet Start Date: 09/23/14 Status: Ordered Quantity: 30.0 Unit: tablet Repeat number: 1 Problem List Condition Confirmation Course Effective Dates Status H ealth Status Informant Recovering alcoholic Confirmed Active Allergic rhinitis Confirmed Active Anemia Confirmed Active Aortic stenosis Confirmed Active Atrial fibrillation Confirmed Active Atrial flutter Confirmed Active Atypical pneumonia Confirmed Active Overweight (BMI 25.0-29.9) Confirmed Active Cardiac pacemaker Confirmed Active Chest pain Confirmed Active CHF (congestive heart failure) Confirmed Active Constipation Confirmed Active Coronary artery disease Confirmed Active CAD (coronary artery disease) Confirmed Active Depression Confirmed Active Former smoker Confirmed Active GERD (gastroesophageal reflux disease) Confirmed Active (HFpEF) heart failure with preserved ejection fraction Confirmed Active Hyperlipidemia Confirmed Active Nephrolithiasis Confirmed Active Macrocytosis without anemia Confirmed Active Moderate aortic stenosis Confirmed Active Obstructive sleep apnea Confirmed Active PAF (paroxysmal atrial fibrillation) Confirmed Active Confirmed Active Renal mass Confirmed Active Sick sinus syndrome Confirmed Active History of heart artery stent Confirmed Active Viral syndrome Confirmed Active Social History Social History Type Response Smoking Status Former smoker, quit more than 30 days ago; Other: quit 32 years ago; entered on: 05/08/23 Sex Sex Representation Female (finding) Patient Care team information Care Team Personnel Name: Milagro Pritchard RN Position: S RN Member Role: Primary Care Nurse Name: Destiney Cummings RN Position: S RN Member Role: Primary Care Nurse Name: Jen Vela RN Position: [facility] RN Member Role: Primary Care Nurse Name: Tatiana Zavala RN Position: [facility] SN RN Member Role: Primary Care Nurse Name: Nichole Souza RN Position: [facility] RN Member Role: Primary Care Nurse Name: Ian Washington RN Position: [facility] RN Member Role: Primary Care Nurse Name: Poppy Muñoz RN Position: [facility] RN Member Role: Primary Care Nurse Name: Kristi Mcghee RN Position: [facility] Onco RN Member Role: Primary Care Nurse Name: Fam Carcamo MD Position: [facility] Physician - Primary Care Member Role: PCP Address: [address] [place] [address]- Telecom: Name: Kaia Perez RN Position: [facility] RN Member Role: Primary Care Nurse Name: Ramona Ozuna RN Position: [facility] RN Member Role: Primary Care Nurse Care Team Related Persons Name: FELICIANO WHELAN Name: CAROLYNE DURON Insurance Providers Guarantor name: GERONIMO CLEOPATRA [facility] Plan Information #: 1 Payer: MEDICARE HMO BLUE [id number] REPLC Member Number: NA Policy Number: NA Group Number: NA
--- OUTSIDE RECORDS SUMMARY | 2024-05-16 12:49 | XMS_ITS | Continuity of Care Document ---
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 Name Role Phone Dona KING, Fam Jansen Primary Care Physician [place] [facility] [place]): [place]06[place] - 05/07/[address] [address]- Discharge Disposition: A-D/C Home Attending Physician: Campos Thomas MD Admitting Physician: Campos Thomas MD Referring Physician: Dontrell Mahmood [facility] Encounter Type: Disch IP Allergies, Adverse Reactions, Alerts Substance Criticality Severity Reaction Reaction Severity Status codeine rash Active Immunizations Given and Recorded Vaccine Date Status Refusal Reason SARS-CoV-2(COVID-19)mRNA-LNP vac([id number]) 01/22/23 Recorded RSV vaccine, preF A-preF B, [...] influenza virus vaccine, inactivated 02/18/11 Aubrey rded [id number] 12y+ bivalent booster vax 08/29/22 Recorded [id number] 12y+ bivalent booster vax 01/11/22 Recorded SARS-CoV-2 mRNA ([id number]) vax 08/04/21 Recorded SARS-CoV-2 (COVID-19) mRNA BNT-162b2 vac 01/30/21 Recorded SARS-CoV-2 (COVID-19) mRNA BNT-162b2 vac 07/17/20 Recorded SARS-CoV-2 (COVID-19) mRNA BNT-162b2 vac 06/24/20 Recorded Influenza Virus Vaccine (oldterm) 01/06/20 Recorde d Influenza Virus Vaccine (oldterm) 1 03/01/17 Given tetanus/diphtheria/pertussis, acel(Tdap) 10/15/18 Given Zoster Vaccine Live 12/17/16 Recorded pneumococcal 23-valent vaccine 12/12/16 Recorded pneumococcal 13-valent vaccine 12/13/15 Recorded 1Admin Note: fluzone high dose Medications acetaminophen 325 mg oral tablet 650 mg, By Mouth, Every 8 hours, PRN, Refills 0, Maintenance, Pain , Mild, 05/07/24 7:16:00 AM EST, Partial fill upon patient request if the prescription is for a schedule II opioid drug. Start Date: 05/07/24 Status: Ordered Repeat number: 1 citalopram 10 mg oral tablet 10 mg, 1, tablet, By Mouth, Daily, Take once daily with 20mg citalopram to equal 30mg daily, # 90 tablet, Refills 3, Tot. Refills 3, Maintenance, 06/29/23 10:37:00 AM EST, Route to Pharmacy Electronically, [facility], Partial fill upon patient request if [...] 10:38:00 AM EST, Route to Pharmacy Electronically, [facility], Partial fill upon patient request if [...] Refills, Maintenance, 06/29/23 10:36:00 AM EST, Tablet, [facility], Partial fill upon patient request if the prescription is for a schedule II opioid drug., 167, cm, 06/29/23 10:18:00 EST, Height, 74.6, kg, 05/08/23 9:47:00 EST, Dry Weight Start Date: 06/29/23 Status: Ordered Quantity: 90.0 Unit: tablet Repeat number: 4 sotalol 80 mg oral tablet 80 mg, Tablet, By Mouth, 05/07/24 9:00:00 AM EST Start Date: 05/07/24 Stop Date: 05/07/24 Status: Completed Repeat number: 1 sotalol 80 mg oral tablet 80 mg, [...] stent Confirmed Active Viral syndrome Confirmed Active Results Radiology Reports * Exam Date Time Procedure Performing Provider Status 05/07/24 6:14 AM Chest Portable Nicole Davies; Auth (Ve rified) Notes: (Chest Portable) Reason For Exam: S/P TAVR;Postop RESULT: Chest Portable Chest Portable Reason: Postop; S P TAVR; Clinical Question(s): Other:; Cardiac Tamponade COMPARISON: 05/06/2024 FINDINGS: LINES AND TUBES: Dual-lead left subclavian pacer/AICD wires are intact. LUNGS AND PLEURA: Clear lungs. Normal pulmonary vascularity. No pleural effusion. No pneumothorax. HEART, MEDIASTINUM AND DIVYA: Status post TAVR Normal mediastinal and hilar contour. BONES AND SOFT TISSUES: No acute abnormality. IMPRESSION: No acute abnormality. WSN: [id number] Ordering Physician: Tee Loyd Dictated By: Stephen Shipman MD Dictated Date/Time: 05/07/24 7:33 am Reviewed By: Stpehen Shipman MD Signed By: Stephen Shipman MD Signed Date/Time: 05/07/24 7:33 am Transcribed By: LUDIN Transcribed Date/Time: 05/07/24 7:30 am * Exam Date Time Procedure Performing Provider Status 05/06/24 1:57 PM Chest Portable Danielle Yu; Auth (Verified) Notes: (Chest Portable) Reason For Exam: S/P TAVR;Postop RESULT: Chest Portable Chest Portable COMPARISON: 05/31/2023 INDICATION / CLINICAL QUESTION: Reason: Postop; S P TAVR; Clinical Question(s): Other:; Cardiac Tamponade; Special Instructions: on admission to unit FINDINGS: LINES AND TUBES: Dual-lead left subclavian pacer/AICD wires are intact. LUNGS AND PLEURA: Clear lungs. Normal pulmonary vascularity. No pleural effusion. No pneumothorax. HEART, MEDIASTINUM AND DIVYA: Top normal heart size. New TAVR stent. BONES AND SOFT TISSUES: No acute abnormality. IMPRESSION: No acute abnormality. WSN: [id number] Ordering Physician: Tee Loyd Dictated By: Gabe Lombardi MD Dictated Date/Time: 05/06/24 2:04 pm Reviewed By: Gabe Lombardi MD Signed By: Gabe Lombardi MD Signed Date/Time: 05/06/24 2:04 pm Transcribed By: LUDIN Transcribed Date/Time: 05/06/24 2:03 pm Vital Signs Most recent to oldest [Reference Range]: 1 2 3 Height 167 cm (05/07/24 11:52 AM) 167 cm (05/07/24 7:39 AM) 167 cm (05/07/24 4:13 AM) Weight 77.4 kg (05/07/24 3:48 AM) 77.4 kg (05/07/24 3:40 AM) 77 kg (05/06/24 3:04 PM) Oxygen Saturation [94-100 %] 97 % (05/07/24 11:52 AM) 95 % (05/07/24 7:39 AM) 98 % (05/07/24 3:40 AM) Pulse Rate [55-90 bpm] 72 bpm (05/07/24 11:52 AM) 97 bpm *H* (05/07/24 9:31 AM) 100 bpm *H* (05/07/24 7:39 AM) Body Mass Index [18.5-24.99 kg/m2] 27.75 kg/m2 *H* (05/07/24 3:40 AM) 27.61 kg/m2 *H* (05/06/24 3:04 PM) 27.97 kg/m2 *H* (05/06/24 8:27 AM) Blood Pressure [90-138/55-84 mm Hg] 101/54mm Hg (05/07/24 11:52 AM) 135/75mm Hg (05/07/24 9:31 AM) 135/75mm Hg (05/07/24 7:39 AM) Respiratory Rate [16-30 br/min] 18 br/min (05/07/24 11:52 AM) 18 br/min (05/07/24 7:39 AM) 18 br/min (05/07/24 3:40 AM) Temperature [96.8-100.4 DegF] 99.2 DegF (05/07/24 11:52 AM) 98.7 DegF (05/07/24 7:39 AM) 100.9 DegF *H* (05/07/24 3:40 AM) Mode of Delivery (Oxygen) Room air (05/07/24 11:52 AM) Room air (05/07/24 7:39 AM) Room air (05/07/24 3:40 AM) Blood pressure sites Arm, left (05/07/24 11:52 AM) Arm, left (05/07/24 7:39 AM) Arm, left (05/07/24 4:13 AM) Temperature Route Oral (05/07/24 11:52 AM) Oral (05/07/24 7:39 AM) Oral (05/07/24 3:40 AM) Dry Weight 77 kg (05/06/24 3:04 PM) 78.0 kg (05/06/24 8:27 AM) Weight Obtained Via Bed scale (05/07/24 3:48 AM) Bed scale (05/07/24 3:40 AM) Standing scale (05/06/24 8:27 AM) Dry Weight Obtained Via Standing scale (05/06/24 8:27 AM) Social History Social History Type Response Smoking Status Former smoker, quit more than 30 days ago; Other: quit 32 years ago; entered on: 05/08/23 Sex Sex Representation Female (finding) Note * Neetu Whatley RN: PERFORM Event Display: Discharge/Transfer Note Hospital Authored Date: [id number] Nursing Discharge Note Entered On: 05/07/2024 16:45 EST Performed On: 05/07/2024 16:45 EST by Neetu Whatley RN Nursing Discharge Note 2 Discharge Time : 05/07/2024 16:44 EST Discharge Level of Care at Discharge : Home/Prison/Foster Care Patient Left Unit Via : Ambulatory Patient Accompanied Off Unit with : Significant other DC Instructions Provided & Signed by Pt : Yes Patient Understands D/C Instructions : Yes Patient Instructions Discharge Signed : Yes Did Pt have Specialty Bed or Wound Vac : No Neetu Whatley RN - 05/07/2024 16:45 EST * Feli Zaidi NP: PERFORM Event Display: Discharge/Transfer Note Hospital Authored Date: [id number] Patient: ??GERONIMO HOUSE ? Age:??73 Years?Sex:??Female?:??1950?? Patient Information Discharge Location: Primary Care Physician: Fam Carcamo MD Admit Date/Time: 05/06/2024 07:29 Discharge Disposition Discharge Disposition: Home: No Services Discharge Diagnosis (aortic stenosis) (I35.0) _ Discharge Medications Acetaminophen (acetaminophen 325 mg oral tablet)?650?Milligram?By Mouth?Every 8 hours?as needed?Pain , Mild apixaban (Eliquis 5 mg oral tablet)?1?tab(s)?5?Milligram?By Mouth?2 times a day Cetirizine (Zyrtec 10 mg oral tablet)?1?tab(s)?10?Milligram?By Mouth?Daily Citalopram (citalopram 10 mg oral tablet)?10?Milligram?1?tablet?By Mouth?Daily?Take once daily with 20mg citalopram to equal 30mg daily Citalopram (citalopram 20 mg oral tablet)?20?Milligram?1?tablet?By Mouth?Daily?Take daily with 10mg tablet Furosemide (furosemide 20 mg oral tablet)?1?tablet?By Mouth?Daily Furosemide (furosemide 20 mg oral tablet)?10?Milligram?0.5?tablet?By Mouth?Every Sunday, Sunday and Sunday Latanoprost Ophthalmic (latanoprost 0.005% ophthalmic solution)?1?Drops?Daily in PM?right eye Multivitamin?By Mouth?Daily Cusseta-3 Polyunsaturated Fatty Acids (Fish Oil 1000 mg oral capsule)?1?capsule?1,000?Milligram?By Mouth?3 times a day Rosuvastatin (rosuvastatin 10 mg oral tablet)?1?tab(s)?10?Milligram?By Mouth?Daily?THIS IS THE CORRECT MEDICATION. ??NOT 20mg capsule. Sotalol (sotalol 80 mg oral tablet)?80?Milligram?1?tablet?By Mouth?2 times a day ? Allergies Allergies ?(Active and Proposed Allergies Only) codeine? (Severity: Unknown severity, Onset: Unknown) ?Reactions: rash ? Future Appointments Sunday 1:45 PM EST ?? With: Pal EDWARD, Major Chance Where: [facility] [place] [address]- Status: Pending Sunday 10:10 AM EST ?? With: Dona KING, Fam Jansen Where: [place] [id number]- Status: Pending Hospital Course Ms. House is a 73-year-old female with medical history significant for hypertension, hyperlipidemia, atrial fibrillation and sick sinus syndrome s/p permanent pacemaker who presents with aortic stenosis and dyspnea on exertion and just basic fatigue now status post transfemoral TAVR by Dr. Mahmood and Dr. Thomas on 05/06/24. Objective ?? Postoperatively, there are no reports of pain, shortness of breath or palpitations. Patient is eating diet by mouth and independently ambulatory. Incision sites are clean, dry and soft without evidence of hematoma.?? Distal pulses are palpable.? S/P TAVR: EKG, Echocardiogram and CXR have been reviewed.?? Has permanent??pacemaker AC: Dustin Will need follow up for echocardiogram in 30 days,??CBC and BMP in??1 week and will follow up with interventionalist and life educator.?? Patient will need to contact these offices to make and confirm appointment date and time. ? Vital Signs?? Temperature:??100.9 DegF??High (05/07/24 03:40:00) Temperature Route: Oral (05/07/24 03:40:00) Pulse Rate:??124 bpm??High (05/07/24 04:13:00) Heart Rate Monitored: 80 bpm (05/06/24 14:00:37) Respiratory Rate: 18 br/min (05/07/24 03:40:00) Systolic Blood Pressure: 137 mm Hg (05/07/24 04:13:00) Diastolic Blood Pressure: 77 mm Hg (05/07/24 04:13:00) Blood pressure sites: Arm, left (05/07/24 04:13:00) Mean Arterial Pressure: 97 mm Hg (05/07/24 04:13:00) Pulse Pressure: 60 mm Hg (05/07/24 04:13:00) Oxygen Saturation: 98 % (05/07/24 03:40:00) Mode of Delivery (Oxygen): Room air (05/07/24 03:40:00) Early Warning Score: 5 (05/07/24 05:06:23) ? . Physical Exam General Appearance: Alert, no acute distress Neurologic: CN 2-12 grossly intact HEENT: PERRLA Cardiac: Rate and rhythm regular. ??S1, S2 heard.?? Extremities: Trace edema bilaterally?? Vascular: Palpable radial, pedal pulses bilaterally. ?? Respiratory: Lung sounds clear with diminished bases bilaterally. No crackles, wheezing. Respiratory effort is unlabored.?? Gastrointestinal: Abdomen is soft, nontender, nondistended. ??+Bowel sounds in all 4 quadrants. Integumentary: Bilateral groin sites soft, no evidence of hematoma. Musculoskeletal: ??HASKINS independently. Pending Results BUN ordered on 05/07/2024 CBC w/ Differential ordered on 05/07/2024 Creatinine ordered on 05/07/2024 Electrolytes ordered on 05/07/2024 Magnesium Level ordered on 05/07/2024 RBCs for Surgery ordered on 05/06/2024 Type and Screen ordered on 05/07/2024 XR Chest Portable ordered on 05/07/2024 Patient Education Titles Web[employer] Ignite Patient Education - Having a Transcatheter Aortic Valve Replacement (TAVR)?? Web[employer] Ign[employer] Patient Education - Understanding Transcatheter Aortic Valve Replacement (TAVR)?? Follow-Up Appointments Added Follow Up ?Time Frame ?Comments ECHO?05/16/2024 13:00 Home Health Face to Face ^HomeHealthFTF Results Discharge Labs BLOOD BANK Blood Type O Positive ()?? 05/06/2024 19:08 Antibody Screen Negative ()?? 05/06/2024 19:08 RBC Unit ID [id number] ()?? 05/06/2024 00:29 RBC Available RE ()?? 05/06/2024 00:29 ?? BLOOD COUNT & DIFF WBC 13.0 k/mm3 (High)?? 05/07/2024 03:26 RBC 3.27 m/mm3 (Low)?? 05/07/2024 03:26 Hgb 10.5 Gm/dL (Low)?? 05/07/2024 03:26 Hct 32.1 % (Low)?? 05/07/2024 03:26 MCV 98.2 femtoliters ()?? 05/07/2024 03:26 MCH 32.1 pg ()?? 05/07/2024 03:26 MCHC 32.7 Gm/dL (Low)?? 05/07/2024 03:26 Platelet Count 73 k/mm3 (Low)?? 05/07/2024 03:26 RDW-SD 46.5 femtoliters ()?? 05/07/2024 03:26 MPV 12.6 femtoliters (High)?? 05/07/2024 03:26 Nucleated RBC (Automated) 0.0 #/100 WBC'S ()?? 05/07/2024 03:26 Abs. NRBC 0.0 k/mm3 ()?? 05/07/2024 03:26 Abs. Neut 7.3 k/mm3 (High)?? 05/07/2024 03:26 Abs. Lymph 1.4 k/mm3 ()?? 05/07/2024 03:26 Abs. Niagara 4.2 k/mm3 (High)?? 05/07/2024 03:26 Abs. Eo 0.0 k/mm3 ()?? 05/07/2024 03:26 Abs. Baso 0.0 k/mm3 ()?? 05/07/2024 03:26 Neut % 55.6 % ()?? 05/07/2024 03:26 Lymph % 10.5 % (Low)?? 05/07/2024 03:26 [place] % 32.3 % (High)?? 05/07/2024 03:26 Eos % 0.0 % ()?? 05/07/2024 03:26 Baso % 0.0 % ()?? 05/07/2024 03:26 Myelocytes % 0.8 % ()?? 05/07/2024 03:26 Band % 0.8 % ()?? 05/07/2024 03:26 Platelet Estimate DECREASED ()?? 05/07/2024 03:26 ? CHEM GENERAL Sodium 140 mmol/L ()?? 05/07/2024 03:26 Potassium 4.2 mmol/L ()?? 05/07/2024 03:26 Chloride 106 mmol/L ()?? 05/07/2024 03:26 Bicarbonate Level 22 mmol/L ()?? 05/07/2024 03:26 Anion Gap 12 ()?? 05/07/2024 03:26 Glucose, POC 102 mg/dL (High)?? 05/06/2024 08:23 BUN 15 mg/dL ()?? 05/07/2024 03:26 Creatinine-Blood 0.73 mg/dL ()?? 05/07/2024 03:26 Estimated GFR Creatinine 86 ML/MIN/1.73 M2 ()?? 05/07/2024 03:26 Magnesium 2.1 mg/dL ()?? 05/07/2024 03:26 ?? COAG POC ACT-LR 316.0 seconds ()?? 05/06/2024 12:28 ? URINE OTHER Est Creatinine Clearance 62.68 mL/min ()?? 05/07/2024 05:06 ? 32??minutes spent on discharge * Pina Oconnell RN: PERFORM Event Display: Patient Education/Instruction Authored Date: [id number] Inpatient Adult Discharge Instructions. [address] [address] Name: GERONIMO HOUSE : 1950?? Visit: 05/06/2024 07:29?? Current Date: 05/07/2024 16:25 ?? Account: [id number]?? Inpatient Adult Discharge Instructions We would like to thank you for allowing us to assist you with your healthcare needs. The following includes patient education materials and information regarding your injury/illness. Our entire staffstrives to provide an excellent experience for our patients and their families. PLEASE ENSURE YOU FOLLOW-UP PER THE INSTRUCTIONS BELOW! ?? YOUR OPINION IS IMPORTANT TO US! Please complete the survey you may receive by mail or email. Your feedback will be used to make improvements to the healthcare experiences of our patients and their families. Surveys are administered by [employer] ?? If further treatment with your primary care physician or another doctor is recommended, it is important for you to keep the appointment. Call your primary care physician or return to the Emergency Department immediately if your condition worsens, fails to improve, or new symptoms develop. If you need to find a doctor, you can call [facility] [employer] for a referral at [phone] or toll free at [phone] ([phone]) or log in to [email or web address].. ?? [facility], in keeping with [facility] guidance, no longer requires face masks for staff, patientsor visitors in most situations. Similiar to time spent indoors at other locations, there is the chance that you were exposed to repiratory viruses during your time with us (such as flu or COVID-19). If you develop symptoms concerning for a viral respiratory infection, please seek testing (and treatment if indicated) from your medical provider or home test kit. ?? You can view and manage your care through the patient portal or by using a health care ritchie of your choosing. [employer] is a website that allows you to securely view your medical information including your hospital discharge summary, office visit summaries, medications and follow-up visits. You can also request appointments, renew medications, and request access to your medical information using a health care ritchie of your choosing, or just ask a question. You can enroll at [email or web address] or register during your next office visit. You have been discharged from [facility], Patient Care Unit: M6??. If you have any questions regarding these instructions, including results of studies pending, afteryou leave, please call us and we will be happy to assist you 27/11. [facility] Your Care Team Attending Physician William KING, Campos Neil?? Consulting Providers Campos Thomas MD?? Discharging Providers Dyan EDWARD, Feli Spann Your Diagnosis (aortic stenosis) Tests Performed Below is a partial list of the tests performed during your hospitalization. You may have had other tests and procedures not included in this list. Please discuss all test results with your provider. BUN CBC w/ Differential Creatinine Electrolytes GLUCOSE POC H + H Magnesium Level POC Hemochron ACT-LR XR Chest Portable BUN?? CBC w/ Differential?? Creatinine?? Electrolytes?? Glucose POC?? Hgb + Hct (H + H)?? Magnesium Level?? POC ACT-LR (POC Hemochron ACT-LR)?? RBCs for Surgery?? Type and Screen?? Chest Portable (XR Chest Portable)?? Primary Care Provider Dona KING, Fam Jansen? Advance Directive Health Care Proxy on File Yes - Health Care Proxy Discharge Vitals Temperature: 99.2 DegF Height: 167 cm Pulse Rate: 72 bpm Weight: 77.4 kg Respiratory Rate: 18 br/min Body Mass Index:??27.75 kg/m2??High Systolic Blood Pressure: 101 mm Hg Body surface area: 1.89 Diastolic Blood Pressure:??54 mm Hg??Low ?? Oxygen Saturation: 97 % ?? Studies Pending All studies ordered during this hospital stay have been completed unless listed below. Please discuss all pending results with your provider listed above in these instructions. ?? BUN?? CBC w/ Differential?? Creatinine?? Electrolytes?? Magnesium Level?? RBCs for Surgery?? Type and Screen?? What to do next Instructions From Your Doctor ?? Orders?? echocardiogram, ??05/07/24 14:30:00 EST?? Scheduled Follow-Up Appointments Sunday 1:45 PM EST ?? With: Pal EDWARD, Major Chance Where: [facility] [address] [place] [address]- Status: Pending Sunday 10:10 AM EST ?? With: Dona KING, Fam Jansen Where: [facility] [address] [place] [address]- Status: Pending You Need to Schedule the Following Appointments Follow Up with??ECHO When:??05/16/2024 01:00 PM EST Where: [address] [facility], 1st [place] [address]- [phone] Discharge Medications GERONIMO HOUSE :1950 Visit Date:05/06/2024 Medications: Please continue your medications until treatment is completed or stopped by your provider. Medications not listed below should be discontinued. Discuss any questions related to medications with your provider. What How Much When Instructions Next Dose New Acetaminophen (acetaminophen 325 mg oral tablet) 650 Milligram Oral Every 8 hours as needed for Pain , Mild as needed for pain Changed Citalopram (citalopram 10 mg oral tablet) 1 tab(s) Oral Daily Take once daily with 20mg citalopram to equal 30mg daily ?? Tomorrow 8am Changed Citalopram (citalopram 20 mg oral tablet) 1 tab(s) Oral Daily Take daily with 10mg tablet ?? Tomorrow 8am Unchanged apixaban (Eliquis 5 mg oral tablet) 1 tab(s) Oral Twice a day Tonight 8pm Unchanged Cetirizine (Zyrtec 10 mg oral tablet) 1 tab(s) Oral Daily Tomorrow 8am Unchanged Furosemide (furosemide 20 mg oral tablet) 1 tab(s) Oral Daily Tomorrow 8am Unchanged Furosemide (furosemide 20 mg oral tablet) 0.5 tab(s) Oral Sunday, Sunday and Sunday 8am Unchanged Latanoprost Ophthalmic (latanoprost 0.005% ophthalmic solution) 1 Drops Daily in PM right eye ?? Tonight 8pm Unchanged Multivitamin Oral Daily Tomorrow 8am Unchanged Cusseta-3 Polyunsaturated Fatty Acids (Fish Oil 1000 mg oral capsule) 1 capsule Oral Daily Tomorrow 8am Unchanged Rosuvastatin (rosuvastatin 10 mg oral tablet) 1 tab(s) Oral Daily THIS IS THE CORRECT MEDICATION. ??NOT 20mg capsule. ?? Tomorrow 8am Unchanged Sotalol (sotalol 80 mg oral tablet) 1 tab(s) Oral Twice a day Tonight 8pm Prescription Given During Visit No new medications prescribed at time of discharge.?? Laboratory Results Below is a partial list of the most recent Laboratory test results done prior to this discharge. You may have had other tests and procedures not included in this list. Please discuss all test resultswith your provider. Est Creatinine Clearance - 62.68 mL/min (05/07/2024) RBC Available - RE (05/06/2024) RBC Unit ID - [id number] (05/06/2024) BUN (05/07/2024) ???BUN - 15 mg/dL CBC w/ Differential (05/07/2024) ???WBC - 13.0 k/mm3???RBC - 3.27 m/mm3???Hgb - 10.5 Gm/dL???Hct - 32.1 %???MCV - 98.2 femtoliters???MCH - 32.1 pg???MCHC - 32.7 Gm/dL???Platelet Count - 73 k/mm3???RDW-SD - 46.5 femtoliters???MPV - 12.6 femtoliters???Nucleated RBC (Automated) - 0.0 #/100 WBC'S???Abs. NRBC - 0.0 k/mm3???Abs. Neut - 7.3 k/mm3???Abs. Lymph - 1.4 k/mm3???Abs. Niagara - 4.2 k/mm3???Abs. Eo - 0.0 k/mm3???Abs. Baso - 0.0 k/mm3???Neut % - 55.6 %???Lymph % - 10.5 %???Niagara % - 32.3 %???Eos % - 0.0 %???Baso % - 0.0 %???Myelocytes % - 0.8 %???Band % - 0.8 %???Platelet Estimate - DECREASED Creatinine (05/07/2024) ???Creatinine-Blood - 0.73 mg/dL???Estimated GFR Creatinine - 86 ML/MIN/1.73 M2 Electrolytes (05/07/2024) ???Sodium - 140 mmol/L???Potassium - 4.2 mmol/L???Chloride - 106 mmol/L???Bicarbonate Level - 22 mmol/L???Anion Gap - 12 GLUCOSE POC (05/06/2024) ???Glucose, POC - 102 mg/dL H + H (05/06/2024) ???Hgb - 10.5 Gm/dL???Hct - 31.8 % Magnesium Level (05/07/2024) ???Magnesium - 2.1 mg/dL POC Hemochron ACT-LR (05/06/2024) ???POC ACT-LR - 316.0 seconds You will be contacted within 72 hours with your results. Allergies (NKA means No Known Allergies) codeine??(rash) Problems Active Problems??(29) (HFpEF) heart failure with preserved ejection fraction?? Allergic rhinitis?? Anemia?? Aortic stenosis?? Atrial fibrillation?? Atrial flutter?? Atypical pneumonia?? CAD (coronary artery disease)?? Cardiac pacemaker?? Chest pain?? CHF (congestive heart failure)?? Constipation?? Coronary artery disease?? Depression?? Former smoker?? GERD (gastroesophageal reflux disease)?? History of heart artery stent?? Hyperlipidemia?? Macrocytosis without anemia?? Moderate aortic stenosis?? Nephrolithiasis?? Obstructive sleep apnea?? Overweight (BMI 25.0-29.9)?? PAF (paroxysmal atrial fibrillation)? Recovering alcoholic?? Renal mass?? Sick sinus syndrome?? Viral syndrome?? Education Materials Below is the list of Educational Leaflet Providered with your Discharge Instructions. [employer] Patient Education - TAVR Discharge Instructions?? Web[employer] Ignite Patient Education - Having a Transcatheter Aortic Valve Replacement (TAVR)?? [employer] Patient Education - Understanding Transcatheter Aortic Valve Replacement (TAVR)?? Valuables and Belongings I fully understand and agree that [facility] accepts no responsibility for all my personal property including clothing, toilet articles, radios, jewelry, dentures, hearing aids, rings, money, or any other property that is in my possession or is brought to me after admission. I understand certain valuables may be placed in a hospital safe for a short period of time. I understand that the hospital is not liable for loss or damage due to accident, fire, or other natural occurrence while said property is in the safe. I accept full responsibility for any personal property that I keep with me, and will not hold the hospital responsible in case of loss or disappearance. I acknowledge that i have been encouraged to send valuables and belongings home. ?? Review of Valuable and Belonging List: With patient Date for Pt to Sign Valuables/Belongings: 05/06/24 08:27:00 ?? Valuables & Belongings ?? Clothes Electronic devices Jewelry Monetary Items Personal devices Miscellaneous Medications (Valuables) Valuables at Bedside Pants, Shirt, Shoes, Undergarments Cell phone ? Valuables Sent Home ? Valuables Sent to Security ? Valuables Sent to Locker ? Other Discharge Information ? Pulmonary Rehab Status?? Pulmonary Rehab Discharge Status?? CPAP/BiPAP Mask Type: Full CPAP/BiPAP Mask Size: Small Respiratory Rate: 18 br/min ? Common Emergency Awareness Tips IS IT A STROKE? Act FAST and Check for these signs: FACE Does the face look uneven? ARM Does one arm drift down? SPEECH Does their speech sound strange? TIME Call at any sign of stroke ?? Heart Attack Signs Chest discomfort: Most heart attacks involve discomfort in the center of the chest and lasts more than a few minutes, or goes away and comes back. It can feel like uncomfortable pressure, squeezing, fullness or pain. Discomfort in upper body: Symptoms can include pain or discomfort in one or both arms, back, neck, jaw or stomach. Shortness of breath: With or without discomfort. Other signs: Breaking out in a cold sweat, nausea, or lightheaded. Remember, MINUTES DO MATTER. If you experience any of these heart attack warning signs, call to get immediate medical attention! ?? Smoking can increase your chances of developing chronic health problems and can cause harmful effects to other family members in your house. If you smoke, you are strongly encouraged to quit. Please call [facility] [employer] Link at [phone] or [phone] ([phone]) or log in to [email or web address] for referrals to smoking cessation programs. ?? 453 Suicide & Crisis Lifeline is available 27/11 if you or someone you know needs to find a reason to keep living. By calling 008 you'll be connected to a skilled, trained counselor at a crisis center in your area. INPATIENT DISCHARGE INSTRUCTIONS SIGNATURE PAGE GERONIMO HOUSE Location:[facility] Registration Date and Time:05/06/2024 07:29 EST Primary Care Physician: Fam Carcamo MD, Attending Physician: William KING, Campos Neil, I CLEOPATRAGERONIMO, have received the above patient education materials/instructions and have verbalized understanding. If ambulance or transport services are being used I further acknowledge being given a choice of service. ?? If you need to contact me, please call me at this number: . 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 298 TAVR Discharge Instructions Call 911 if: ??? If you develop a new onset of confusion, weakness or tingling on one side, numbness, slurred speech or difficulty speaking, loss of vision ??? If you develop numbness, tingling, loss of sensation, and/or coolness to your arms or legs. ??? If you develop chest pain or discomfort that is not relieved with rest. ??? If uncontrolled bleeding occurs, hold pressure to the site and call 911. ?? Call your life educator office if you experience any of the following: ??? Temperature of 101 or greater, chills, sweating ??? Any bleeding or swelling at the incision site or if a hard lump forms. ??? Any signs of infection at incision site including drainage, redness or tenderness, odor, or the edges of your procedure site are pulling apart or opening. ??? If you experience any new rash, cough, dizziness, or leg cramps. ??? Changes in breathing, chest pain, abnormal pain, dizziness, change in pulse, pulse rate or palpitations, nausea, vomiting. ??? You gain 2 pounds in one day or 5 pounds in 1 week. ?? Follow up: A follow up appointment should be made with your doctor. Follow up care is important; it is strongly encouraged for you to keep your appointment. You may have more than one appointment including one with the textile cutting machine operator who performed your procedure and your life educator. ??? Follow up appointments are generally scheduled at 2 weeks for an incision check, either with your primary life educator or a member of our heart valve team. ??? Additional follow ups occur with the textile cutting machine operator who performed your procedure within 4 to 6 weeks and then again at 1 year. ??? o An EKG, echocardiogram, and labs will also be obtained before these two follow up visits If you do not have an appointment scheduled already in your discharge packet, please call and make an appointment when you get home. If you have any questions, please call the office of the textile cutting machine operator who performed your procedure. ?? Valve identification card: You will receive a permanent card in the mail in 8-10 weeks. This identification card should be carried with you at all times. ?? If you go home with a 28 day monitor after your procedure: ??? The monitor will be applied to you prior to your discharge. ??? Each monitor is good for 14 days, a new monitor will be sent to your home address on file at day 12 ??? If you have any specific questions or concerns in regard to your monitor, please call the company: o Rebecca: ?? Bathing: ??? You can take a shower using a mild soap after you are discharged from the hospital. ??? Avoid soaking in water such as tub baths, swimming pools or hot tubs until you are cleared by your doctor to do so. ?? Incision Care: ??? Look at your procedure site every day until it is completely healed. o Check your procedure site daily for redness, odor, or drainage/bleeding. o You may have a small bump where the catheter was put in, if the bump gets larger, please notify your life educator. o You may see bruising at the procedure sites but this is normal. ??? It is important to keep incision sites clean and dry. o Avoid usi ng any perfumed soaps, lotions, creams, oils or ointments as these may irritate the site and could put you at risk for infection. ?? Activity: ??? Review the written materials given to you by the Cardiac Rehabilitation staff for your specificexercise program. ??? No heavy lifting over 10 pounds (gallon of milk) for 1 week. ??? Gradually increase your activity. Remember to alternate periods of activity with periods of rest. ??? It is important to continue to do the coughing and deep breathing exercises to help prevent breathing complications. ??? Take your temperature every day for the next 3-5 days. ??? Weigh yourself at the same time every morning. ?? Cardiac Rehabilitation: Cardiac rehabilitation is an outpatient medically supervised exercise program. Participating in a cardiac rehabilitation program is highly encouraged, as this is essential to your recovery process. ??? Cardiac rehabilitation typically starts 2 to 3 weeks after discharge. ??? If attending [facility]??? program, you should leave the hospital with an orientation appointment already arranged. A cardiac rehab facility other than [facility] may require a referral from your life educator. ?? Driving: ??? You should not drive for 2-3 days after you are discharged from the hospital. ?? Dental Cleaning/Procedures post TAVR ??? You will need an antibiotic prior to future dental cleanings and procedures to prevent against bacteria from attaching to your new heart valve (This is calledinfective endocarditis). ??? If you have developed any signs and/or symptoms of endocarditis pleasecall your life educator. ??? Symptoms of endocarditis include : ?? o Flu-like symptoms, such as fever, chills, night sweats tiredness, muscle and joint aches, and headache. o Trouble breathing, cough,nausea and vomiting. o Swelling of the feet, legs, and belly. ?? * Dyan EDWARD, Feli Spann: PERFORM Event Display: Patient Education Leaflets Authored Date: [id number] Having a Transcatheter Aortic Valve Replacement (TAVR) ?? 06945 Having a Transcatheter Aortic Valve Replacement (TAVR) Your healthcare provider recommends that you have a transcatheter aortic heart valve replacement (TAVR). This is a surgery to replace a diseased aortic valve with a new tissue or biological valve. TAVR is done by putting a thin, flexible tube (catheter) through a blood vessel in your groin, or through a small cut (incision) under the collarbone. Sometimes this procedure needs an incision in between your ribs. The catheter is used to deliver an artificial valve to your heart. The TAVR is a minimally invasive procedure that is an alternative to open heart surgery. Be sure to talk with your healthcare provider about any questions or concerns you have before the procedure. The procedure often takes 2 to 3 hours. You???ll likely remain in the hospital for 1 to 3 days. Here???s what to expect before, during, and after the procedure. Before the procedure Before your procedure, you will have a physical exam and tests. These tests include X-rays, CT scans, lung tests, and blood tests. You will have an echocardiogram to check your aortic valve. This is a test that uses an ultrasound. It makes sound waves to create images of your heart. You may also have a cardiac catheterization. This will tell your healthcare provider more about your heart. It shows how blood is flowing through your arteries and about the pressures inside your heart and lungs. Before the procedure you will also need to: ??? Tell your healthcare provider about all medicines you take. This includes fpff-rrr-tchfdbs medicines, vitamins, herbs, and other supplements. It also includes any blood thinners, such as warfarin or daily aspirin. You may need to stop taking some or all of them before your surgery. ??? Tell your healthcare provider if you???re allergic to any medicines, have had a reaction to anesthesia, or have a bleeding disorder. ??? Stop smoking. Ask your healthcare provider how soon before surgery you need to quit. ??? Follow any directions you are given for not eating or drinking before surgery. ??? Shower with special soap before the surgery if advised.??? Follow all other instructions that you are given. ?? During the procedure The TAVR procedure is less invasive than traditional aortic valve replacement surgery. The procedure is done in an operating room or a specially equipped catheterization lab. ??? Medical staff will put an IV (intravenous) line in your arm or hand. This supplies fluids and medicine. ??? To allow you to comfortably sleep during the surgery, you may be given general anesthesia. Or you may just be given medicine (sedation) to help you relax. ??? Staff places an arterial line into the artery in your wrist to keep track of blood pressure and take blood samples. ??? Staff might place a small probe into your throat. This is to do a transesophageal echocardiogram during the procedure. Some health centers may not need this. If they do, you will get general anesthesia. ??? You will be given antibiotics before the procedure to protect you from infection. You will also get an tibiotics after the procedure. ??? The healthcare provider will put a catheter in the femoral artery in the groin. If they are not able to put a catheter in the groin, they may place the catheter in an artery near the armpit or neck. They will guide the catheter through the artery and into your heart and to your aortic valve. The provider will put other catheters, from the neck, wrist, or the other leg, in your heart to take measurements and X-ray pictures during the procedure. ??? The providerwill put the new valve through the catheter to the heart on a collapsed balloon. ??? When the balloon is in the right place in the aortic valve area, the healthcare provider will inflate it. This puts the new valve in place. ??? The provider will take measurements and images to make sure your new valve works correctly. Then the catheters are removed. ??? The catheter is removed and your incision is closed. If your groin artery is too small, your healthcare provider may put the catheter through an artery near your armpit or neck. Or they may put the catheter through a cut under the collarbone or betweenyour ribs instead. ?? After the procedure You???ll be moved to a cardiac monitoring unit as you wake from the anesthesia. When you first wakeup, you may feel groggy, thirsty, or cold. These feelings won???t last long. You will likely have some IV lines and an arterial line in your body. These are to give you medicines and nutrition, and to measure your heart function. Medical staff members will carefully keep track of that function. Your condition often will be stable within the first 1 to 2 days. Your recovery will depend on how invasive your procedure is for your valve replacement. You will likely need to stay in the hospital for 1 to 3 days. If you???ve had the surgery done through your ribs, you may spend more time in the hospital than if you had the surgery done through your groin, armpit, or wrist. You???ll be encouraged to stand and walk, even if you feel tired. Walking helps your muscle strength, blood flow, and breathing. Your healthcare provider will let you know when you can go home. Have a family member or friend drive you home. ?? Last Reviewed Date: 2023 ?? [id number] [employer] All rights reserved. This information is not intended as a substitute for professional medical care. Always follow your healthcare professional's instructions. ?? * Dyan EDWARD, Feli Spann: PERFORM Event Display: Patient Education Leaflets Authored Date: Understanding Transcatheter Aortic Valve Replacement (TAVR) ?? 64087 Understanding Transcatheter Aortic Valve Replacement (TAVR) Transcatheter aortic valve replacement (TAVR) is a procedure to replace a diseased aortic valve with a new tissue or biologic valve. The old heart valve is not removed but works like an anchor for the new heart valve. This procedure is done through small incisions using a long thin tube (catheter),X-rays, and ultrasound. Transcatheter aortic valve replacement is also known as transcatheter aortic valve implantation (HUNG). The aortic valve directs blood flow from the heart (left ventricle) into the aorta (large blood vessel) and carries blood to the rest of the body. In some people, the valve becomes scarred and stiff and has trouble opening. This is a condition called aortic stenosis. The heart then has to work harder to push blood through the narrowed heart valve to the rest of the body. Over time, the extra workcan cause the heart muscle to weaken. This may lead to symptoms, such as tiredness, shortness of breath, chest pain, and fainting. It can lead to heart failure. In TAVR, the catheter is usually placed in the femoral artery in your groin. Sometimes, the catheter is placed through the axillary artery near your armpit or the carotid artery in your neck. Occasionally, the catheter is placed through a small incision in your chest underneath the collarbone or anincision between the ribs. The doctor uses the catheter to bring the new valve to your heart. The new valve is made of cow or pig heart tissue and is mounted on a metal frame. The new valve helps improve blood flow from the heart to the rest of the body. Reasons for TAVR TAVR may be a option for some people instead of surgical aortic valve replacement (SAVR). This willbe based on age, surgical risks, how severe your aortic stenosis is, other medical factors, and other cardiac issues. Your healthcare team will determine if TAVR is an option for you. ?? Risks and possible complications TAVR is very effective in most people. However, all medical procedures carry some risks and possible complications. Some common risks of TAVR include: ??? Bleeding or the need for a blood transfusion ??? Anemia (not enough red blood cells in the blood) ??? Blood clots ??? Infection ??? Collection of fluid around your heart (pericardial effusion) ??? Confusion or memory problems ??? Damage to the heart ??? Damage to your blood vessels ??? Failure of the new valve ??? Heart attack ??? Heart rhythm problems that may need a pacemaker ??? Kidney damage or failure ??? Lung puncture ??? Stroke ??? Risks of anesthesia (including ) ??? Rarely, the new heart valve can move out of position after it has been implanted ??? Leaking of blood in or around the new heart valve You may have other risks, depending on your medical condition. Be sure to talk with your healthcareprovider if you have any concerns before the procedure. ?? Life after a heart valve replacement ??? A new heart valve can help ease symptoms you may have had.These include pain or pressure in your chest, shortness of breath, and tiredness. ??? After the surgery, you will need to take aspirin or other blood-thinning medicine every day. You will likely alsoneed to take an antiplatelet medicine for a certain period of time. These medicines help prevent blood clots in your new valve. ??? You will need to take antibiotics before you have dental work and certain other medical procedures, as prescribed by your healthcare provider. This is to help prevent bacteria from harming your new heart valve. ??? Your healthcare provider may tell you to make some li festyle changes to protect your heart and make it stronger. These include exercise, quitting smoking, and keeping a healthy weight. ??? After your recovery from TAVR, you may be able to return to regular activities. You should notice improvement in the symptoms from your heart valve disease. Be sure to talk to your healthcare provider before starting any exercise program. ?? Last Reviewed Date: 2021 ?? [id number] [employer] All rights reserved. This information is not intended as a substitute for professional medical care. Always follow your healthcare professional's instructions. ?? * Event Display: Hemodynamic Procedure Report Authored Date: [id number] History and physical note * William KING, Campos Neil: PERFORM Event Display: History and Physical Hospital Authored Date: [id number] SURGICAL HISTORY AND PHYSICAL DATE: 05/06/2024 HISTORY OF THE PRESENT ILLNESS: Ms. House is a 73-year-old female who has aortic stenosis and dyspnea on exertion and just basic fatigue. She presents today for consideration for surgical aortic valve replacement. PAST MEDICAL HISTORY: Remarkable for hypertension as well as for coronary artery disease. She underwent stenting about 17 years ago. It is further remarkable for atrial fibrillation and sick sinus syndrome for which she got a pacemaker. She currently is atrially paced, I think, mostly and has about1% atrial fibrillation on device interrogation. She also reports obstructive sleep apnea. PAST SURGICAL HISTORY: Remarkable for the pacemaker implantation as well as for appendectomy. MEDICATIONS: List of medications includes citalopram, Lasix, rosuvastatin, apixaban and cetirizine,latanoprost, multivitamins, omega-3, and sotalol. REVIEW OF SYSTEMS: Taken and she denied constitutional, head, eyes, ears, nose, throat, gastrointestinal, genitourinary, pulmonary, vascular, neurologic, hematologic, oncologic problems other than those already mentioned. SOCIAL HISTORY: Remarkable for being . She has 2 children, one of whom is alive; she lost a daughter secondary to addiction, and she takes care of one of her grandchildren. 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 FAMILY HISTORY: Remarkable for her father who at age 81. He had heart problems, abused alcoholand smoked and had COPD. Mother is still alive and well at 98. Apparently, she has aortic stenosis,but is otherwise well. PHYSICAL EXAMINATION: GENERAL: The patient is well appearing, appearing maybe somewhat younger than stated age of 73. VITAL SIGNS: Her blood pressure is 126/76 mmHg in both right and left arms. She is afebrile. O2 satis 98% on room air with respirations of 20, and her heart rate is 72 beats per minute and regular. She is 165 cm tall and weighs 169 pounds. HEENT: Normocephalic, atraumatic. PERRLA, EOMI. Membranes are moist. NECK: Supple, no masses, no jugular venous distention. LUNGS: Clear to auscultation and percussion. HEART: Heart sounds are remarkable for a systolic murmur heard at the right upper sternal border, grade 2-3. Carotids are remarkable for bilateral bruits or transmitted murmurs. EXTREMITIES: The pulses are 2+ radial, 2+ femoral, popliteal, dorsalis pedis, posterior tibial. Veins appear present in both lower extremities. No cyanosis, edema or clubbing. MUSCULOSKELETAL: Intact. NEUROLOGIC: No gross motor or sensory deficits. DIAGNOSTIC STUDIES: Review of the coronary angiography is remarkable for no significant coronary artery disease. Review of the echocardiogram is remarkable for a mean gradient of 23 mmHg, a valve area of 0.79 cm2, normal left ventricular function and an EF of 58%. The mitral valve was remarkable for the mild regurgitation. Right ventricle is normal and tricuspid valve was remarkable for mild tricuspid regurgitation. Review of the TAVR CTA is remarkable for relative paucity of calcium in the aortic valve. I believethe coronary heights were adequate and groin access vessels are large enough. IMPRESSION AND PLAN: In summary, Geronimo House is a 73-year-old female who is in need of aortic valve replacement and she was here today being evaluated for TAVR. An STS score was calculated and her STS mortality was found to be about 3%. Risk for all cause morbidity and mortality is about 15%. Of note, given her age and moderately elevated mortality, I would typically recommend a TAVR for thispatient. Unfortunately, the TAVR CTA seems to demonstrate paucity of calcium in the aortic valve. Her situation will need to be discussed as part of the TAVR team review and a recommendation to be given following that review. There may be concerns about secure deployment of a TAVR valve into her root given the paucity of calcium. If she needs to undergo surgical replacement, that certainly can be done as her risk is moderate, but not excessive. Dictated by: Campos Thomas M.D. Signing Clinician: Campos Thomas M.D. Dictated: 03/05/2024 12:04:11 Transcribed: 07:34:41 AM Transcribed by: KYLE DocID: [id number] PRELIMINARY REPORT UNLESS MANUALLY/ELECTRONICALLY SIGNED cc: [place], [address] EKG study * Event Display: ECG 12-Lead Authored Date: Please click on pdf link to open report * Event Display: ECG 12-Lead Authored Date: [id number] Ventricular Rate: 105 BPM QRS Duration: 84 ms Q-T Interval: 364 ms QTC Calculation(Bazett): 481 ms R [place]: 63 degrees T [place]: 39 degrees Atrial fibrillation with rapid ventricular response with frequent AV dual-paced complexes Abnormal ECG When compared with ECG of 07-May-2024 04:12, Electronic ventricular pacemaker has replaced Junctional rhythm Confirmed by DANIELLE MONTANA MD () on 05/07/2024 5:33:26 PM Dickson: DANIELLE MONTANA MD * Event Display: ECG 12-Lead Authored Date: [id number] Please click on pdf link to open report * Event Display: ECG 12-Lead Authored Date: [id number] Ventricular Rate: 121 BPM QRS Duration: 86 ms Q-T Interval: 352 ms QTC Calculation(Bazett): 499 ms R [place]: 71 degrees T [place]: 65 degrees Sinus tachycardia Nonspecific ST abnormality Abnormal ECG When compared with ECG of 06-May-2024 13:08, Vent. rate has increased by 51 bpm Confirmed by DANIELLE MONTANA MD () on 05/07/2024 9:18:08 AM Dickson: DANIELLE MONTANA MD * Event Display: ECG 12-Lead Authored Date: [id number] Please click on pdf link to open report * Event Display: ECG 12-Lead Authored Date: [id number] Ventricular Rate: 70 BPM Atrial Rate: 70 BPM P-R Interval: 258 ms QRS Duration: 90 ms Q-T Interval: 432 ms QTC Calculation(Bazett): 466 ms P [place]: 65 degrees R [place]: 58 degrees T [place]: 50 degrees Sinus rhythm with 1st degree A-V block Otherwise normal ECG When compared with ECG of 06-May-2024 07:52, Sinus rhythm has replaced Electronic atrial pacemaker Confirmed by Yariel Haas ([id number]) on 05/06/2024 5:17:53 PM Dickson: Yariel Haas Heart * Event Display: Echocardiogram - Complete Authored Date: [id number] Transthoracic Echocardiography Report (TTE) Patient Demographics Patient Name GERONIMO HOUSE Date of Study 05/06/2024 Corporate Gender Female Facility Race .[id number] Ethnicity Date of 1950 Height: 65.75 inches Age 73 year(s) Weight: 171.96 pounds Accession Number [id number] BSA: 1.87 m2 Room Number [id number] BMI: 27.97 kg/m2 Referring Satnam Rico Physician Physician 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 Additional Indications:26 mm Medtronic TAVR Clinical History Pacemaker. sick sinus syndrome HTN CAD Atrial fibrillation. Study Data Type of Study TTE procedure:Echo 2D Limited or Follow-up, Doppler Follow-up or Limited. 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 Blood Pressure:124/72 mmHg EKG: Normal sinus rhythm Allergies - Codeine. Doppler Measurements AV Peak Velocity: 117 cm/s AV Peak Gradient: 5.48 mmHg AV Mean Gradient: 4 mmHg AV VTI:26.5 cm LVOT Peak Velocity: 82.8 cm/s LVOT VTI18.7 cm Cardiac Anatomy Left Ventricle/Interventricular Septum Not well visualized. Aortic Valve There is a bioprosthetic valve in the aortic position (26 mm Evolut), which appears to be well positioned. There is trace paravalvular leak. No prosthetic stenosis (Vmax 1.2m/s, mean gradient 4mmHg). No central regurgitation. Summary -Limited study post-TAVR. -There is a bioprosthetic valve in the aortic position (26 mm Evolut), which appears to be well positioned. There is trace paravalvular leak. No prosthetic stenosis (Vmax 1.2m/s, mean gradient 4mmHg). No central regurgitation. Comparison Serial comparison to prior study from January 29, 2024 not possible, given the limited nature of the current study. There is a bioprosthetic valve in the aortic position now. Signature * Event Display: Echocardiogram - Complete Authored Date: Cardiology * Event Display: Cardiac Rhythm Strips Authored Date: Hospital Progress note * Melodie Evans RN: SIGN, MODIFY, PERFORM, SIGN, VERIFY Event Display: Progress Note Hospital Authored Date: Patient: GERONIMO HOUSE Age: 73 years Sex: Female : 1950 Associated Diagnoses: None Author: Melodie Evans RN Findings Problem Related to Alteration in Cardiac Function (new) : Alteration in Cardiac Function/new 05/07/2024 1:00 EST Alteration in Cardiac Status Related to Cardiac Surgery Goals & Outcomes, Cardiac Status Pt will resume/maintain adequate cardiac output, Pt will resume/maintain adequate hemodynamic status, Pt will resume/maintain adequate respiratory function, Pt will resume/maintain intact neuro function Cardiac Interventions Implemented Assess/monitor cardiac status, Assess/monitor neuro status, Assess/monitor respiratory status BH Goals/Interventions, Cardiac Yes Cardiac, Problem Start 05/06/2024 7:29 Reviewed Plan with, Cardiac Status Patient Patient Progression, Cardiac Status Patient progressing according to plan . Narrative/Incidental Pt is alert and oriented x4. Pt denies any chest pain, dizziness, nausea/vomiting, SOB but complains of pain managed with medications ordered in CIS. Pt is independent in her room with no assistive devices. Refer to CIS/biophysical/tele for further info. Appropriate safety measures taken, call bellin reach, and plan of care continued. Discharge Information Pulmonary Rehab Discharge : Pulmonary Rehab Discharge Status 05/07/2024 0:21 EST CPAP/BiPAP Mask Type Full CPAP/BiPAP Mask Size Small 05/06/2024 21:14 EST CPAP/BiPAP Mask Type Full CPAP/BiPAP Mask Size Small * Melodie Evans RN: PERFORM Event Display: Progress Note Hospital Authored Date: [id number] Around 0336, pt converted from paced/NSR rates 70s-80s to accelerated junctional rhythm rates 110s-120s, pt complaining of sudden nausea/dry heaving and generally not feeling well, tigertexted POLICE INSPECTOR Shaq made aware, EKG/vitals done and IV zofran given with some relief, IV metoprolol ordered and given as well * Jessie Mcclure RN: PERFORM, SIGN, VERIFY Event Display: Progress Note Hospital Authored Date: [id number] Patient: GERONIMO HOUSE Age: 73 years Sex: Female : 1950 Associated Diagnoses: None Author: Jessie Mcclure RN Findings Narrative/Incidental Ms House was admitted to m6 from PACU following a TAVR. R groin DSD clean and dry with no strike through, TR band started to be taken down at 1500. Ms House is sitting at 30 degrees in bed, no nausea or pain. On tele in A-paced rhythm. Skin check clear with exception to R groin, R wrist, L2 andL3 toe and R2 toe red and discolored from raynauds per Ms House. Admission completed.. Patient Care team information Care Team Personnel Name: Milagro Pritchard RN Position: [facility] RN Member Role: Primary Care Nurse Name: Destiney Cummings RN Position: [facility] RN Member Role: Primary Care Nurse Name: Jen Vela RN Position: [facility] RN Member Role: Primary Care Nurse Name: Jessie Mcclure RN Position: [facility] RN Member Role: Primary Care Nurse Name: Tatiana Zavala RN Position: [facility] SN RN Member Role: Primary Care Nurse Name: Nichole Souza RN Position: [facility] RN Member Role: Primary Care Nurse Name: Ian Washington RN Position: [facility] RN Member Role: Primary Care Nurse Name: Poppy Muñoz RN Position: [facility] RN Member Role: Primary Care Nurse Name: Kristi Mcghee RN Position: [facility] Onco RN Member Role: Primary Care Nurse Name: Fam Carcamo MD Position: [facility] Physician - Primary Care Member Role: PCP Address: [address] [place] [phone] [place] Telecom: Name: Kaia Perez RN Position: S RN Member Role: Primary Care Nurse Name: Ramona Ozuna RN Position: S RN Member Role: Primary Care Nurse Care Team Related Persons Name: FELICIANO HOUSE Name: CAROLYNE DURON Insurance Providers Guarantor name: GERONIMO HOUSE Health Plan Information #: 1 Payer: MEDICARE [facility] Member Number: [id number] Policy Number: NA Group Number: [id number] Health Plan Information #: 2 Payer: MEDICARE [facility] Member Number: [id number] Policy Number: NA Group Number: NA
== END ==
LOC: HO.CARD 12:46
PROVIDERS: PCP Internal Medicine; Visit Provider Internal Medicine Cardiovascular Disease
DX: I35.0 Nonrheumatic aortic (valve) stenosis (principal); Z95.2 Presence of prosthetic heart valve
CPT/HCPCS: 93306

== ENCOUNTER → 2024-05-16 12:49 | Outpatient (BNV) | payer MEDICARE, SELFPAY | PROVIDERS: PCP Internal Medicine; Visit Provider Internal Medicine | DX: I34.0 Nonrheumatic mitral (valve) insufficiency (principal); I36.1 Nonrheumatic tricuspid (valve) insufficiency; Z95.3 Presence of xenogenic heart valve; I51.89 Other ill-defined heart diseases | CPT/HCPCS: 93306 ==

== ENCOUNTER 2024-05-23 10:16 | Outpatient (AMB) | payer BC, SELFPAY ==
[2024-05-23 10:25] VITALS: BP 120/74; PULSE 70; BMI 27.0
--- NOTE | 2024-05-23 10:25 | A.OFFVIS_ITS ---
Vital Signs 05/23/24 10:25 Height 5 ft 6 in Weight 167 lb 8.821 oz BMI 27.0 BP 120/74 Blood Pressure Location Lt brachial Position Sitting Pulse 70 Intake Visit Reasons: 6m follow up Intake Note: 6 month follow-up with ekg and St Shashi check feeling great Middleware Consultant Required: No Allergies codeine [CODEINE] Allergy (Unknown, Verified 11/16/23 11:31) TACHYCARDIA, HIVES, DIZZINESS Medication List - Last Reconciled 05/23/24 by Rich Daniels MD apixaban (Eliquis) 5 mg PO BID citalopram 10 mg PO DAILY dorzolamide-timolol (PF) 2-0.5 % (Cosopt (PF)) 1 drp ophthalmic (eye) BID furosemide (Lasix) 20 mg PO DIRECTED 90 days latanoprost 0.005% 1 drp ophthalmic (eye) DAILY rosuvastatin 10 mg PO BEDTIME sotalol 80 mg PO BID HPI Comments Details: Madison comes for follow-up. She underwent a 26 mm transcatheter aortic valve replacement in March. She says she feels 20 years younger. She feels amazing with no more symptoms of shortness of breath or chest heaviness. She denies any prolonged palpitation irregular heartbeat. Denies any orthopnea, PND, leg edema. No lightheadedness, syncope. No bleeding issues or neurologic events. Her echocardiogram done post TAVR showed preserved LV ejection fraction at 55-60% with normal valve function with mean gradient of 6 mm Hg with no significant paravalvular leak [facility] Medical History History of cardioversion Aortic stenosis Hyperlipidemia HTN (hypertension) (HFpEF) heart failure with preserved ejection fraction Sick sinus syndrome Cardiac pacemaker in situ Paroxysmal atrial fibrillation CAD (coronary artery disease) Surgical History (Updated 05/23/24 @ 10:59 by Rich Daniels MD) Status post transcatheter aortic valve replacement Hx of cataract extraction Hx of appendectomy Hx of esophagogastroduodenoscopy Hx of colonoscopy Stented coronary artery Social History Patient Tobacco Use Status: Never used Tobacco Review of Systems Const Denies chills, Denies fatigue, Denies fever(s), Denies frequent falls, Denies weakness, Denies weight gain and Denies weight loss ENT Denies dizziness Card Denies chest pain, Denies leg edema, Denies lightheadedness, Denies palp itations, Denies dyspnea, Denies dyspnea on exertion, Denies orthopnea and Denies other (loss of consciousness) Resp Denies cough, Denies dyspnea and Denies dyspnea on exertion GI Denies hematochezia and Denies change in stool character Musc Denies abnormal gait, Denies muscle weakness, Denies numbness, Denies radiating pain into limb and Denies tingling Neuro Denies abnormal gait, Denies dizziness, Denies frequent falls, Denies numbness, Denies tingling and Denies weakness Endo Denies fatigue and Denies palpitations Physical Exam Vital Signs: Last Vital Signs Pulse 70 05/23/24 10:25 BP 120/74 05/23/24 10:25 BMI result Body Mass Index 27.0 Const General: cooperative, comfortable, alert, awake, Physically active and well groomed Nutritional Appearance: average body habitus Orientation/consciousness: patient oriented x3 Limitations: no limitations Neck Neck: Yes trachea midline, Yes supple and Yes no JVD Resp Effort & Inspection: normal respiratory effort Auscultation: clear to auscultation bilaterally, no crackles and no wheezes Cardio Jugular venous distension: no JVD Palpation: normal PMI Rate: regular rate Rhythm: regular rhythm Heart sounds: S1 normal heart sound present and Murmur heart sound present systolic late, decrescendo and crescendo GI Auscultation: normal bowel sounds Skin General skin exam: no rashes or lesions noted Neuro General: patient oriented x3 and no focal motor deficits Extrem General: Yes no clubbing, cyanosis or edema and Yes other (Good distal pulses but noted purplish lesions on the left 2nd toe) Psych Appearance: grossly normal Office Procedures Cardiac Device Check Cardiac Device Check Details: Dual-chamber Saint Shashi pacemaker in place. Programmed in DDDR at 60 beats per minute. Rapid acceleration of atrial rate was noted with excitement. Will reprogrammed the rate response to a moderate level. Atrial pacing 97% of time. Minimal ventricular pacing noted. Few episodes of atrial fibrillation noted with total burden of less than 1%. Atrial capture thresholds are adequate and reprogrammed to provide adequate safety. Ventricular capture thresholds adequate. Atrial ventricular sensing is adequate. Pacing lead impedance is stable. Battery life is 9 months 84605-KG Cardiac Device Check, pacemaker dual lead Procedure code (CPT) selection complete EKG Details: EKG shows atrially paced, ventricularly sensed rhythm 67322-[id number], Complete Assessment & Plan Assessment & Plan (1) Status post transcatheter aortic valve replacement: Comment: 26 mm Medtronic bioprosthetic valve, with normal mean gradient of 6 mm Hg with no paravalvular leak, April 2024 for severe aortic stenosis Code(s): Z95.2 - Presence of prosthetic heart valve Category: Surgical Plan: Status post transcatheter aortic valve replacement for severe aortic stenosis with low calcium level noted by CT scan although by planimetry or LV was less than 1 cm2. She was doing extremely well with much improved symptoms since the transcatheter aortic valve. She has been exercising and being very active. Did offer her cardiac rehab but she declines. She is encouraged to continue oral anticoagulation therapy. SBE prophylaxis as per ACC/aha guidelines. Encouraged to maintain activity level as tolerated. (2) Paroxysmal atrial fibrillation: Code(s): I48.0 - Paroxysmal atrial fibrillation Category: Medical Plan: Paroxysmal atrial fibrillation overall has remained suppressed with sotalol therapy. Importance of rhythm control was discussed. She has done very well with rhythm control approach. Very brief episodes of atrial fibrillation noted. Continue sotalol therapy. Continue full oral anticoagulation, currently on Eliquis 5 mg b.i.d.. Semi annual renal function test should be pursued. (3) Cardiac pacemaker in situ: Comment: dual-chamber Saint Shashi pacemaker placement 2006 Code(s): Z95.0 - Presence of cardiac pacemaker Category: Medical Plan: Cardiac pacemaker in-situ, working well. Reprogrammed for adequate function. Will follow remotely. Battery life is at low end will monitor closely. (4) CAD (coronary artery disease): Code(s): I25.10 - Atherosclerotic heart disease of eek coronary artery without angina pectoris Category: Medical Plan: CAD with remote stenting of the circumflex artery. Currently not having any symptoms of angina. Continue aggressive blood pressure control. Currently on full oral anticoagulation therefore would avoid antiplatelet therapy to reduce bleeding risk. Continue aggressive risk factor modification with goal LDL less than 70 mg/dL. Encouraged to maintain activity level as tolerated. Advised to call me with any new symptoms. (5) (HFpEF) heart failure with preserved ejection fraction: Code(s): I50.30 - Unspecified diastolic (congestive) heart failure Category: Medical Plan: Heart failure preserved ejection fraction, clinically euvolemic and well compensated. Continue current low-dose Lasix therapy. Transcatheter aortic valve replacement should help. She was significantly advanced diastolic dysfunction clinically appears euvolemic and well compensated. Advised to monitor for signs and symptoms of heart failure and call me with any new symptoms. May benefit from Jardiance therapy in the future. Will follow up in the clinic in 6 months time, sooner p.r.n.. Greater than 40 minutes was spent in managing his complex care. Coding Level of Care Code Est Pt Level 5 (23414) Complex EM visit Add On G2211 Diagnoses Status post transcatheter aortic valve replacement Z95.2 Paroxysmal atrial fibrillation I48.0 Cardiac pacemaker in situ Z95.0 CAD (coronary artery disease) I25.10 (HFpEF) heart failure with preserved ejection fraction I50.30 CPT Codes Cardiac Device Check - Cardiac Device 2: [id number] Cardiac Device Check, pacemaker dual lead ([id number]) EKG - CPT: 62063-Eoddgndqrlwmmbcpo, Complete ([id number])
--- OUTSIDE RECORDS SUMMARY | 2024-05-23 12:01 | XMS_ITS | Continuity of Care Document ---
Author Organization [facility] Edgar kojo Address [address] [place] [id number]- Care Team Providers Care Blacksmith Helper Name Role Phone Dona KING, Fam Jansen Primary Care Physician Encounter [facility] [place] Date(s): 04/16/24 - 05/16/24 [facility] [address] [place] [address] Drive [address] [place] [address]- Encounter Type: Triage Allergies, Adverse Reactions, Alerts Substance Criticality Severity Reaction Reaction Severity Status codeine rash Active Immunizations Given and Recorded Vaccine Date Status Refusal Reason SARS-CoV-2(COVID-19)mRNA-LNP vac([id number]) 01/22/23 Recorded RSV vaccine, preF A-preF B, [...] influenza virus vaccine, inactivated 02/18/11 Aubrey rded [id number] 12y+ bivalent booster vax 08/29/22 Recorded [id number] 12y+ bivalent booster vax 01/11/22 Recorded SARS-CoV-2 mRNA ([id number]) vax 08/04/21 Recorded SARS-CoV-2 (COVID-19) mRNA BNT-162b2 [...] 10:37:00 AM EST, Route to Pharmacy Electronically, [facility], Partial fill upon patient request if [...] 10:38:00 AM EST, Route to Pharmacy Electronically, [facility], Partial fill upon patient request if [...] Refills, Maintenance, 06/29/23 10:36:00 AM EST, Tablet, [facility], Partial fill upon patient request if [...] Team Personnel Name: Milagro Pritchard RN Position: [facility] RN Member Role: Primary Care Nurse Name: Destiney Cummings RN Position: [facility] RN Member Role: Primary Care Nurse Name: Jen Vela RN Position: [facility] RN Member Role: Primary Care Nurse Name: Jessie Mcclure RN Position: [facility] RN Member Role: Primary Care Nurse Name: Tatiana Zavala RN Position: [facility] SN RN Member Role: Primary Care Nurse Name: Nichole Souza RN Position: [facility] RN Member Role: Primary Care Nurse Name: Ian Washington RN Position: [facility] RN Member Role: Primary Care Nurse Name: Poppy Muñoz RN Position: [facility] RN Member Role: Primary Care Nurse Name: Kristi Mcghee RN Position: [facility] Onco RN Member Role: Primary Care Nurse Name: Fam Carcamo MD Position: [facility] Physician - Primary Care Member Role: PCP Address: [address] [place] [address]- Telecom: Name: Kaia Perez RN Position: [facility] RN Member Role: Primary Care Nurse Name: Ramona Ozuna RN Position: [facility] RN Member Role: Primary Care Nurse Care Team Related Persons Name: CLEOPATRAFELICIANO Name: CAROLYNE DURON Insurance Providers Guarantor name: GERONIMO WHELAN [facility] Information #: 1 Payer: MEDICARE HMO [employer]UE [employer] Member Number: NA Policy Number: NA Group Number: NA
== END 2024-05-23 10:54 | disposition home or self-care (01) ==
PROVIDERS: PCP Internal Medicine; Visit Provider Internal Medicine Cardiovascular Disease
DX: I48.0 Paroxysmal atrial fibrillation (principal); Z95.0 Presence of cardiac pacemaker; Z95.2 Presence of prosthetic heart valve; I25.10 Atherosclerotic heart disease of native coronary artery without angina pectoris; I50.30 Unspecified diastolic (congestive) heart failure; I44.0 Atrioventricular block, first degree
CPT/HCPCS: 93010; 93280; 99215

== ENCOUNTER → 2024-05-23 10:16 | Outpatient (BNVA) | payer BC, SELFPAY | PROVIDERS: PCP Internal Medicine; Visit Provider Internal Medicine Cardiovascular Disease | DX: I48.0 Paroxysmal atrial fibrillation (principal); I25.10 Atherosclerotic heart disease of native coronary artery without angina pectoris; I50.30 Unspecified diastolic (congestive) heart failure; Z95.2 Presence of prosthetic heart valve; Z45.018 Encounter for adjustment and management of other part of cardiac pacemaker; Z79.01 Long term (current) use of anticoagulants; Z79.899 Other long term (current) drug therapy | CPT/HCPCS: 93005; 93280 ==

== ENCOUNTER → 2024-06-11 23:59 | Outpatient (BNV) | payer BC, SELFPAY ==
--- NOTE | 2024-06-13 13:34 | MHC.OFFVIS ---
Intake Visit Reasons: Remote device check-St Shashi Allergies codeine [CODEINE] Allergy (Unknown, Verified 11/16/23 11:31) TACHYCARDIA, HIVES, DIZZINESS PFSH Medical History History of cardioversion Aortic stenosis Hyperlipidemia HTN (hypertension) (HFpEF) heart failure with preserved ejection fraction Sick sinus syndrome Cardiac pacemaker in situ Paroxysmal atrial fibrillation CAD (coronary artery disease) Surgical History (Updated 05/23/24 @ 10:59 by Rich Daniels MD) Status post transcatheter aortic valve replacement Hx of cataract extraction Hx of appendectomy Hx of esophagogastroduodenoscopy Hx of colonoscopy Stented coronary artery Social History Patient Tobacco Use Status: Never used Tobacco Office Procedures Cardiac Device Check Cardiac Device Check Details: Remote pacemaker report generated 06/11/2024. Pacemaker function is adequate. [id number] Cardiac Device Interrogation, pacemaker Procedure code (CPT) selection complete Assessment & Plan Assessment & Plan (1) Cardiac pacemaker in situ: Comment: dual-chamber Saint Shashi pacemaker placement 2006 Code(s): Z95.0 - Presence of cardiac pacemaker Category: Medical Plan: See above Coding Level of Care Code Procedure Only Diagnoses Cardiac pacemaker in situ Z95.0 CPT Codes Cardiac Device Check - Cardiac Device 12: 53151-Uucfbh Cardiac Device Interrogation, pacemaker ([id number])
== END ==
PROVIDERS: PCP Internal Medicine; Visit Provider Internal Medicine Cardiovascular Disease
DX: Z45.018 Encounter for adjustment and management of other part of cardiac pacemaker (principal)
CPT/HCPCS: 93294

== ENCOUNTER → 2024-09-10 23:59 | Outpatient (BNV) | payer BC, SELFPAY ==
--- NOTE | 2024-09-11 09:04 | MHC.OFFVIS ---
Intake Visit Reasons: Remote device check- St Shashi Allergies codeine [CODEINE] Allergy (Unknown, Verified 11/16/23 11:31) TACHYCARDIA, HIVES, DIZZINESS PFSH Medical History History of cardioversion Aortic stenosis Hyperlipidemia HTN (hypertension) (HFpEF) heart failure with preserved ejection fraction Sick sinus syndrome Cardiac pacemaker in situ Paroxysmal atrial fibrillation CAD (coronary artery disease) Surgical History (Updated 05/23/24 @ 10:59 by Rich Daniels MD) Status post transcatheter aortic valve replacement Hx of cataract extraction Hx of appendectomy Hx of esophagogastroduodenoscopy Hx of colonoscopy Stented coronary artery Social History Patient Tobacco Use Status: Never used Tobacco Office Procedures Cardiac Device Check Cardiac Device Check Details: Remote pacemaker report generated 09/10/2024. Pacemaker function is adequate [id number] Cardiac Device Interrogation, pacemaker Procedure code (CPT) selection complete Assessment & Plan Assessment & Plan (1) Cardiac pacemaker in situ: Comment: dual-chamber Saint Shashi pacemaker placement 2006 Code(s): Z95.0 - Presence of cardiac pacemaker Category: Medical Plan: See above Coding Level of Care Code Procedure Only Diagnoses Cardiac pacemaker in situ Z95.0 CPT Codes Cardiac Device Check - Cardiac Device 12: 39890-Bspxro Cardiac Device Interrogation, pacemaker ([id number])
== END ==
PROVIDERS: PCP Internal Medicine; Visit Provider Internal Medicine Cardiovascular Disease
DX: Z45.018 Encounter for adjustment and management of other part of cardiac pacemaker (principal)
CPT/HCPCS: 93294

== ENCOUNTER 2024-11-28 09:34 | Outpatient (AMB) | payer BC, SELFPAY ==
--- NOTE | 2024-11-28 09:45 | A.OFFVIS_ITS ---
Vital Signs 11/28/24 09:46 Height 5 ft 6 in Weight 167 lb 8.821 oz BMI 27.0 BP 120/74 Blood Pressure Location Lt brachial Position Sitting Pulse 70 Intake Visit Reasons: 6m follow up Intake Note: 6 month follow-up with ekg and echo feeling good Freight Caller Required: No Allergies codeine (CODEINE) Allergy (Unknown, Verified 11/16/23 11:31) TACHYCARDIA, HIVES, DIZZINESS Medication List - Last Reconciled 11/28/24 by Rich Daniels MD apixaban (Eliquis) 5 mg PO BID citalopram 10 mg PO DAILY dorzolamide-timolol (PF) 2-0.5 % (Cosopt (PF)) 1 drp ophthalmic (eye) BID furosemide (Lasix) 20 mg PO DIRECTED 90 days latanoprost 0.005% 1 drp ophthalmic (eye) DAILY rosuvastatin 10 mg PO BEDTIME sotalol 80 mg PO BID HPI Comments Details: Madison comes for follow-up. She says she has been doing extremely well. She has been exercising and moving around with good pace and has no symptoms of shortness of breath. She denies any symptoms of chest pain. Denies any orthopnea, PND, leg edema. No prolonged palpitation irregular heartbeat. She is in fact traveling on active trip to [place] for the next 3 weeks. She denies any lightheadedness, syncope. No bleeding issues or neurologic events. She had an accidental fall 3 weeks ago and she had a ecchymosis over her right scalp and the eye. She did not seek ED care or did not have any imaging. However she says she has no neurologic symptoms. No visual changes no headaches or nausea. [facility] Medical History (Updated 11/28/24 @ 10:13 by Rich Daniels MD) Atrial flutter Aortic stenosis History of cardioversion Hyperlipidemia HTN (hypertension) (HFpEF) heart failure with preserved ejection fraction Sick sinus syndrome Cardiac pacemaker in situ Paroxysmal atrial fibrillation CAD (coronary artery disease) Surgical History Status post transcatheter aortic valve replacement Hx of cataract extraction Hx of appendectomy Hx of esophagogastroduodenoscopy Hx of colonoscopy Stented coronary artery Social History Patient Tobacco Use Status: Never used Tobacco Review of Systems Const Denies chills, Denies fatigue, Denies fever(s), Denies frequent falls, Denies weakness, Denies weight gain and Denies weight loss ENT Denies dizziness Card Denies chest pain, Denies leg edema, Denies lightheadedness, Denies palpitations, Denies dyspnea, Denies dyspnea on exertion, Denies orthopnea and Denies other (loss of consciousness) Resp Denies cough, Denies dyspnea and Denies dyspnea on exertion GI Denies hematochezia and Denies change in stool character Musc Denies abnormal gait, Denies muscle weakness, Denies numbness, Denies radiating pain into limb and Denies tingling Neuro Denies abnormal gait, Denies dizziness, Denies frequent falls, Denies numbness, Denies tingling and Denies weakness Endo Denies fatigue and Denies palpitations Physical Exam Vital Signs: Last Vital Signs Pulse 70 11/28/24 09:46 BP 120/74 11/28/24 09:46 BMI result Body Mass Index 27.0 Const General: cooperative, comfortable, alert, awake, Physically active and well groomed Nutritional Appearance: average body habitus Orientation/consciousness: patient oriented x3 Limitations: no limitations Neck Neck: Yes trachea midline, Yes supple and Yes no JVD Resp Effort & Inspection: normal respiratory effort Auscultation: clear to auscultation bilaterally, no crackles and no wheezes Cardio Jugular venous distension: no JVD Palpation: normal PMI Rate: regular rate Rhythm: regular rhythm Heart sounds: S1 normal heart sound present and Murmur heart sound present systolic late, decrescendo and crescendo GI Auscultation: normal bowel sounds Skin General skin exam: no rashes or lesions noted Neuro General: patient oriented x3 and no focal motor deficits Extrem General: Yes no clubbing, cyanosis or edema and Yes other (Good distal pulses but noted purplish lesions on the left 2nd toe) Psych Appearance: grossly normal Office Procedures Cardiac Device Check Cardiac Device Check Details: Dual-chamber [employer] Shashi pacemaker in place. Battery life is close to BING at 2.65 volts. About 3 months of battery lifetime left. Atrially pacing 99% of time. No significant atrial fibrillation noted. Atrial pacing thresholds excellent and reprogrammed to enhance battery life. Ventricular pacing thresholds are adequate. Atrial ventricular sensing is adequate. Pacing lead impedance is stable. [id number] Cardiac Device Check, pacemaker dual lead Procedure code (CPT) selection complete EKG Details: EKG shows atrially paced, ventricularly sensed rhythm [id number], Complete Assessment & Plan Assessment & Plan (1) (HFpEF) heart failure with preserved ejection fraction: Code(s): I50.30 - Unspecified diastolic (congestive) heart failure Category: Medical Plan: Heart failure with preserved ejection fraction, clinically euvolemic well compensated currently on as-needed diuretic therapy. Has done very well after transcatheter valve replacement and with pacing and managing her rhythm. Continue aggressively rhythm control approach. Continue daily weight monitoring avoidance salt loading. Diuretics as need be. (2) CAD (coronary artery disease): Code(s): I25.10 - Atherosclerotic heart disease of [place] coronary artery without angina pectoris Category: Medical Plan: CAD with remote stenting. No symptoms of angina at this point time. Currently on full oral anticoagulation with apixaban and therefore would avoid aspirin therapy. Continue rosuvastatin therapy. Target goal LDL less than 70 mg/dL. (3) Paroxysmal atrial fibrillation: Code(s): I48.0 - Paroxysmal atrial fibrillation Category: Medical Plan: Paroxysmal atrial fibrillation as well as flutter has done very well with the ablation as well as current therapy with sotalol. Has no recurrent episode. Has done extremely well with rhythm control approach will continue pursue rhythm control approach. Continue full oral anticoagulation, currently on Eliquis 5 mg b.i.d.. Semi annual renal function test should be pursued. Avoidance of stimulants was discussed. Will continue monitor by pacer telemetry. (4) Cardiac pacemaker in situ: Comment: dual-chamber Saint Shashi pacemaker placement 2006 Code(s): Z95.0 - Presence of cardiac pacemaker Category: Medical Plan: Cardiac pacemaker in-situ, working well. Battery life is close to BING. Patient is traveling for 3 weeks to [place] and discussed to carry her remote monitor with her. I think she should be able to safely travel to [place]. Will monitor by remote tele. Follow up in the clinic in 1 month's time. (5) Status post transcatheter aortic valve replacement: Comment: 26 mm Medtronic bioprosthetic valve, with normal mean gradient of 6 mm Hg with no paravalvular leak, April 2024 for severe aortic stenosis Code(s): Z95.2 - Presence of prosthetic heart valve Category: Surgical Plan: Status post transcatheter aortic valve replacement, clinically seems to be working well. She has had significant improvement in his symptomatology since transcatheter aortic valve replacement. Continue full oral anticoagulation as above. Follow-up echocardiogram 6 months time. SBE prophylaxis as per ACC/[facility] guidelines. Will follow up in the clinic in 1 month's time, sooner p.r.n.. Greater than 30 minutes was spent in managing his complex care. Coding Level of Care Code Est Pt Level 5 (12966) Complex EM visit Add On G2211 Diagnoses (HFpEF) heart failure with preserved ejection fraction I50.30 CAD (coronary artery disease) I25.10 Paroxysmal atrial fibrillation I48.0 Cardiac pacemaker in situ Z95.0 Status post transcatheter aortic valve replacement Z95.2 CPT Codes Cardiac Device Check - Cardiac Device 2: 79427-SJ Cardiac Device Check, pacemaker dual lead ([id number]) EKG - CPT: 76739-Dbafmvgjumlahceod, Complete ([id number])
[2024-11-28 09:46] VITALS: BP 120/74; PULSE 70; BMI 27.0
--- OUTSIDE RECORDS SUMMARY | 2024-11-28 09:47 | XMS_ITS | Patient Health Record ---
Author Organization [facility] Address [address] [place] [address] Care Team Providers Care Social Media Analyst Name Role Phone Fam Carcamo Primary Care Provider Stephen Harmon Unavailable [phone] Allergies Allergen (clinical drug ingredient) Drug/Non Drug [...] Status Risk Notes Problem Acquired hallux valgus (32280545) Hallux valgus (acquired), right foot (M20.11) Active confirmed Problem Raynaud's disease (465938642) Raynaud's disease without gangrene (I73.00) Active confirmed Plan Of Treatment Pending Test Test Name Order Date X ray : Foot, right 3V 10/06/2022 Insurance Providers Payer Name Payer Address Payer Phone Subscriber Number Group Number Insured Name Patient Relationship to Insured Coverage Start Date Coverage End Date BlueCare 65 Medicare Preferred [address] [place] [address] [id number] Madison House Self - patient is the insured Medical (General) History Medical History History ICD Code Back,Hip,and Knee pain Measles Mumps Chicken pox Glaucoma Heart disease Transfusions Surgical History Surgery Date(Month/Year)
--- OUTSIDE RECORDS SUMMARY | 2024-11-28 09:47 | XMS_ITS | Clinical Summary ---
Author Organization [facility] Address [address] [place] [address] Phone Care Team Providers Care Director Of Fundraising Name Role Phone Fam Carcamo MD Primary Care Provider + Allergies Active Allergy Reactions Criticality Noted Date Comments Codeine Palpitations,Rash,Na usea and/or Vomiting Low 05/15/2019 Medications citalopram hydrobromide (CITALOPRAM ORAL) Take 30 mg by mouth. Active FUROSEMIDE ORAL Take by mouth. Active rosuvastatin (CRESTOR) 10 MG tablet Take 10 mg by mouth daily. Active apixaban (ELIQUIS) 2.5 mg Take 2.5 mg by mouth 2 (two) times a day. Active valACYclovir (VALTREX) 500 MG tabletIndications: Herpes simplex infection of genitourinary system Take 1 tablet (500 mg total) by mouth daily. 90 tablet 3 2 Active Family History Medical History Relation Comments Diabetes Brother Drug use disorder Daughter pt raising her children Alcohol use disorder Father Colon polyps Father Heart disease Father Hyperlipidemia Father Hypertension Father Stroke Father Diabetes Maternal Grandmother No Known Problems Mother 2020 age 95 do ing well. 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 Not on karla e 09/01/2022 Are you concerned about learning? Not on file 09/01/2022 No 09/01/2022 No 09/01/2022 Digital Access Answer Date Recorded No 09/30/2022 No 09/30/2022 No 09/30/2022 Reliable internet access at home? Not on file 09/30/2022 Device with a working camera? Not on file Comments No Sex and Gender Information Value Date Recorded Sex Assigned at Not on file Legal Sex Female 10:45 AM EST Gender Identity Not on file Sexual Orientation Not on file Occupation Industry Job Start Date Job End Date Retired Not on file Not on file Not on file Last Filed Vital Signs Vital Sign Reading Time Taken Comments Blood Pressure 102/64 09/02/2020 1:21 PM EDT Pulse - - Temperature - - Respiratory Rate - - Oxygen Saturation - - Inhaled Oxygen Concentration - - Weight 70 kg (154 lb 6.4 oz) 09/02/2020 1:21 PM EDT Height 161.3 cm (5' 3.5 ) 09/02/2020 1:21 PM EDT Body Mass Index 26.92 09/02/2020 1:21 PM EDT Plan of Treatment Health Maintenance Due Date Last Done Comments Adult Td,Tdap Booster 1949 CREATININE LEVEL 1949 LIPID PANEL 1949 DEPRESSION SCREENING 1961 SMOKING Hx and SMOKELESS TOB ACCO SCREENING 1962 HEPATITIS C SCREENING 12/13/1967 MAMMOGRAM 1989 COLOGUARD 1994 COLONOSCOPY 1994 COLORECTAL CANCER SCREENING 1994 FIT TEST 1994 FOBT 1994 SIGMOIDOSCOPY 1994 VIRTUAL COLONOSCOPY 1994 PNEUMOCOCCAL VACCINES (50+ y ears) (1 of 1 - PCV) 12/13/1999 OSTEOPOROSIS SCREENING INITI AL (ONE-TIME) 2014 ZOSTER VACCINES (2 of 3) 02/11/2017 12/17/2016 COVID-19 VACCINE (2 - 2023-2 5 season) 2024 07/17/2020 RSV VACCINE (1 - 1-dose 75+ series) 2024 HEPATITIS A VACCINES Aged Out No long er eligible based on patient's age to complete this topic HIB VACCINES Aged Out No longer eligi ble based on patient's age to complete this topic MENINGOCOCCAL VACCINES (ACWY) Aged Out No longer eligible based on patient's age to complete this topic MENINGOCOCCAL VACCINES (B) Aged Out N o longer eligible based on patient's age to complete this topic Medical Devices Not on file Insurance MEDICARE PART A & B [place] H[place] BLUE REPLACEMENT MEDICARE PART A & B Member Subscriber Plan / Payer (Ef fective 2019-Present) Name:Madison House Member ID:[id number] Relation to Subscriber:Self Name:Madison House Subscriber ID:[id number] Payer ID:[id number] Group ID:Not on file Type:Medicare Address: [employer]™ [address] [facility] BLUE REPLACEMENT MEDICARE PART A & B [facility] BLUE REPLACEMENT MEDICARE PART A & B Member Subscriber Plan / Payer (Ef fective 2019-Present) Name:Madison House Member ID:[id number] Relation to Subscriber:Self Name:Madison House Subscriber ID:[id number] Payer ID:[id number] Group ID:Not on file Type:Medicare Address: [employer]™ [address] [place] [address] [place] [address] MEDICARE HMO BLUE REPLACEMENT MEDICARE PART A & B Member Subscriber Plan / Payer (Ef fective 2019-Present) Name:Madison House Member ID:[id number] Relation to Subscriber:Self Name:Madison House Subscriber ID:[id number] Payer ID:[id number] Group ID:Not on file Type:Medicare Address: [employer]™ [address] [place] [address] [place] [address] MEDICARE HMO BLUE REPLACEMENT MEDICARE PART A & B Member Subscriber Plan / Payer (Ef fective 2019-Present) Name:Madison House Member ID:[id number] Relation to Subscriber:Self Name:Madison House Subscriber ID:[id number] Payer ID:[id number] Group ID:Not on file Type:Medicare Address: [employer]™ [address] MEDICARE HMO BLUE REPLACEMENT MEDICARE PART A & B [facility] H[facility] BLUE REPLACEMENT MEDICARE PART A & B MEDICARE HMO BLUE REPLACEMENT MEDICARE PART A & B MEDICARE HMO BLUE REPLACEMENT Member Subscriber Plan / Payer (Ef fective 2014-Present) Name:Madison House Relation to Subscriber:Self Name:Madison House Payer ID:[id number] (NAIC) Type:Medicare Address: [facility] [address] [place] [id number] Care Teams Director Of Fundraising Relationship Specialty Start Date End Date Fam Carcamo MD PCP - General Internal Medicine 04/01/18 Additional Source Comments The information contained in this document represents components of the legal health record. It is not the complete legal health record.[facility]
== END 2024-11-28 10:12 | disposition home or self-care (01) ==
LOC: HO.HCS 09:34
PROVIDERS: PCP Internal Medicine; Visit Provider Internal Medicine Cardiovascular Disease
DX: I50.30 Unspecified diastolic (congestive) heart failure (principal); I25.10 Atherosclerotic heart disease of native coronary artery without angina pectoris; I48.0 Paroxysmal atrial fibrillation; Z95.0 Presence of cardiac pacemaker; Z95.2 Presence of prosthetic heart valve
CPT/HCPCS: 93010; 93280; 99215

== ENCOUNTER → 2024-11-28 09:34 | Outpatient (BNVA) | payer BC, SELFPAY | PROVIDERS: PCP Internal Medicine; Visit Provider Internal Medicine Cardiovascular Disease | DX: Z45.018 Encounter for adjustment and management of other part of cardiac pacemaker (principal); I50.30 Unspecified diastolic (congestive) heart failure; I25.10 Atherosclerotic heart disease of native coronary artery without angina pectoris; I48.0 Paroxysmal atrial fibrillation; R94.31 Abnormal electrocardiogram [ECG] [EKG]; Z95.2 Presence of prosthetic heart valve | CPT/HCPCS: 93005; 93280 ==

== ENCOUNTER → 2024-12-18 23:59 | Outpatient (BNV) | payer BC, SELFPAY ==
--- NOTE | 2024-12-23 12:20 | MHC.OFFVIS ---
Intake Visit Reasons: Remote device check- [facility] Shashi Allergies codeine (CODEINE) Allergy (Unknown, Verified 11/16/23 11:31) TACHYCARDIA, HIVES, DIZZINESS PFSH Medical History (Updated 11/28/24 @ 10:13 by Rich Daniels MD) Atrial flutter Aortic stenosis History of cardioversion Hyperlipidemia HTN (hypertension) (HFpEF) heart failure with preserved ejection fraction Sick sinus syndrome Cardiac pacemaker in situ Paroxysmal atrial fibrillation CAD (coronary artery disease) Surgical History Status post transcatheter aortic valve replacement Hx of cataract extraction Hx of appendectomy Hx of esophagogastroduodenoscopy Hx of colonoscopy Stented coronary artery Social History Patient Tobacco Use Status: Never used Tobacco Office Procedures Cardiac Device Check Cardiac Device Check Details: Remote pacemaker report generated 12/18/2024. Pacemaker function in his adequate. Patient close to battery replacement. [place] [id number] Cardiac Device Interrogation, pacemaker Procedure code (CPT) selection complete Assessment & Plan Assessment & Plan (1) Cardiac pacemaker in situ: Comment: dual-chamber Saint Shashi pacemaker placement 2006 Code(s): Z95.0 - Presence of cardiac pacemaker Category: Medical Plan: See above Coding Level of Care Code Procedure Only Diagnoses Cardiac pacemaker in situ Z95.0 CPT Codes Cardiac Device Check - Cardiac Device 12: [id number] Cardiac Device Interrogation, pacemaker ([id number])
== END ==
PROVIDERS: PCP Internal Medicine; Visit Provider Internal Medicine Cardiovascular Disease
DX: Z45.010 Encounter for checking and testing of cardiac pacemaker pulse generator [battery] (principal)
CPT/HCPCS: 93294

== ENCOUNTER 2025-01-06 12:18 | Outpatient (AMB) | payer BC, SELFPAY ==
--- NOTE | 2025-01-06 12:33 | A.OFFVIS_ITS ---
Vital Signs 01/06/25 12:34 Height 5 ft 6 in Weight 167 lb 8.821 oz BMI 27.0 BP 120/70 Blood Pressure Location Lt brachial Position Sitting Pulse 76 Intake Visit Reasons: 1m follow up w device ck Intake Note: Follow-up [address] [facility] Required: No Allergies codeine (CODEINE) Allergy (Unknown, Verified 11/16/23 11:31) TACHYCARDIA, HIVES, DIZZINESS Medication List - Last Reconciled 01/06/25 by Rich Daniels MD apixaban (Eliquis) 5 mg PO BID citalopram 10 mg PO DAILY dorzolamide-timolol (PF) 2-0.5 % (Cosopt (PF)) 1 drp ophthalmic (eye) BID furosemide (Lasix) 20 mg PO DIRECTED 90 days latanoprost 0.005% 1 drp ophthalmic (eye) DAILY rosuvastatin 10 mg PO BEDTIME sotalol 80 mg PO BID HPI Comments Details: Madison comes for follow-up. She has been doing well. She recently traveled to [place] and was able to walk everywhere and had no symptoms. She is doing well with no symptoms of heart failure. No prolonged palpitation irregular heartbeat. No exertional chest pain. No lightheadedness, syncope. Takes all her medications. No bleeding issues or neurologic events. Comes for a pacer check [facility] Medical History Atrial flutter Aortic stenosis History of cardioversion Hyperlipidemia HTN (hypertension) (HFpEF) heart failure with preserved ejection fraction Sick sinus syndrome Cardiac pacemaker in situ Paroxysmal atrial fibrillation CAD (coronary artery disease) Surgical History Status post transcatheter aortic valve replacement Hx of cataract extraction Hx of appendectomy Hx of esophagogastroduodenoscopy Hx of colonoscopy Stented coronary artery Social History Patient Tobacco Use Status: Never used Tobacco Review of Systems Const Denies chills, Denies fatigue, Denies fever(s), Denies frequent falls, Denies weakness, Denies weight gain and Denies weight loss ENT Denies dizziness Card Denies chest pain, Denies leg edema, Denies lightheadedness, Denies palpitations, Denies dyspnea, Denies dyspnea on exertion, Denies orthopnea and Denies other (loss of consciousness) Resp Denies cough, Denies dyspnea and Denies dyspnea on exertion GI Denies hematochezia and Denies change in stool character Musc Denies abnormal gait, Denies muscle weakness, Denies numbness, Denies radiating pain into limb and Denies tingling Neuro Denies abnormal gait, Denies dizziness, Denies frequent falls, Denies numbness, Denies tingling and Denies weakness Endo Denies fatigue and Denies palpitations Physical Exam Vital Signs: Last Vital Signs Pulse 76 01/06/25 12:34 BP 120/70 01/06/25 12:34 BMI result Body Mass Index 27.0 Const General: cooperative, comfortable, alert, awake, Physically active and well groo med Nutritional Appearance: average body habitus Orientation/consciousness: patient oriented x3 Limitations: no limitations Neck Neck: Yes trachea midline, Yes supple and Yes no JVD Resp Effort & Inspection: normal respiratory effort Auscultation: clear to auscultation bilaterally, no crackles and no wheezes Cardio Jugular venous distension: no JVD Palpation: normal PMI Rate: regular rate Rhythm: regular rhythm Heart sounds: S1 normal heart sound present and Murmur heart sound present systolic late, decrescendo and crescendo GI Auscultation: normal bowel sounds Skin General skin exam: no rashes or lesions noted Neuro General: patient oriented x3 and no focal motor deficits Extrem General: Yes no clubbing, cyanosis or edema and Yes other (Good distal pulses but noted purplish lesions on the left 2nd toe) Psych Appearance: grossly normal Office Procedures EKG Details: Dual-chamber Saint Shashi pacemaker in place, battery life has reached BING. Atrial pacing 99% of time. No atrial fibrillation noted. Pacing lead impedance is stable. Atrial ventricular sensing is adequate. [id number], Complete Assessment & Plan Assessment & Plan (1) Cardiac pacemaker in situ: Comment: dual-chamber Saint Shashi pacemaker placement 2006 Code(s): Z95.0 - Presence of cardiac pacemaker Category: Medical Plan: Cardiac pacemaker in-situ, for sick sinus syndrome. Patient atrially pacer dependent. Pacemaker leads are stable. Patient needs a battery change. Di scussed with electrophysiology who is schedule him for battery change in next week or 2. Discussed with the patient about risks and benefits of the battery change. She understands. Will pursue the same. (2) Paroxysmal atrial fibrillation: Code(s): I48.0 - Paroxysmal atrial fibrillation Category: Medical Plan: Paroxysmal atrial fibrillation has remained stable on current sotalol therapy. Continue the same. Continue full oral anticoagulation, currently on Eliquis. (3) Status post transcatheter aortic valve replacement: Comment: 26 mm Medtronic bioprosthetic valve, with normal mean gradient of 6 mm Hg with no paravalvular leak, April 2024 for severe aortic stenosis Code(s): Z95.2 - Presence of prosthetic heart valve Category: Surgical Plan: Stable, no changes. Will follow in the clinic (4) (HFpEF) heart failure with preserved ejection fraction: Code(s): I50.30 - Unspecified diastolic (congestive) heart failure Category: Medical Plan: Stable with no signs or symptoms of heart failure. Continue Lasix as needed. Continue rhythm control approach as above. (5) CAD (coronary artery disease): Code(s): I25.10 - Atherosclerotic heart disease of [place] coronary artery without angina pectoris Category: Medical Plan: CAD with remote stenting with no recurrent symptoms. Continue aggressive medical therapy including statin therapy with target goal LDL less than 70 mg/dL. Currently on full oral anticoagulation Eliquis. Will follow up in the clinic in 3 months time, sooner PRN. Thank you for allowing me to partake in her care Coding Level of Care Code Est Pt Level 4 (02371) Complex EM visit Add On G2211 Diagnoses Cardiac pacemaker in situ Z95.0 Paroxysmal atrial fibrillation I48.0 Status post transcatheter aortic valve replacement Z95.2 (HFpEF) heart failure with preserved ejection fraction I50.30 CAD (coronary artery disease) I25.10 CPT Codes EKG - CPT: 74906-Ndovjwakwaskqpebu, Complete ([id number])
[2025-01-06 12:34] VITALS: BP 120/70; PULSE 76; BMI 27.0
== END 2025-01-06 12:50 | disposition home or self-care (01) ==
LOC: HO.HCS 12:19
PROVIDERS: PCP Internal Medicine; Visit Provider Internal Medicine Cardiovascular Disease
DX: I48.0 Paroxysmal atrial fibrillation (principal); I50.30 Unspecified diastolic (congestive) heart failure; Z95.2 Presence of prosthetic heart valve; I25.10 Atherosclerotic heart disease of native coronary artery without angina pectoris; R94.31 Abnormal electrocardiogram [ECG] [EKG]; Z95.0 Presence of cardiac pacemaker
CPT/HCPCS: 93010; 99214

== ENCOUNTER → 2025-01-06 12:18 | Outpatient (BNVA) | payer BC, SELFPAY | PROVIDERS: PCP Internal Medicine; Visit Provider Internal Medicine Cardiovascular Disease | DX: I25.10 Atherosclerotic heart disease of native coronary artery without angina pectoris (principal) | CPT/HCPCS: 93005 ==

== ENCOUNTER 2025-01-26 10:57 | Outpatient (AMB) | payer MEDICARE, SELFPAY ==
[2025-01-26 11:08] VITALS: BP 104/74; PULSE 92; RESP 18; TEMP 36.8; O2SAT 97; BMI 27.4
--- NOTE | 2025-01-26 11:08 | MHC.PC.OV ---
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 Past medical history includes:AFib anticoagulated on Eliquis and rhythm controlled on sotalol, status post pacemaker, coronary artery disease, chronic depression stable on current medications. Patient complains of chronic lower back pain and stiffness worse when waking up in the morning and after prolonged walking. Patient denies pain radiating to extremities, weakness or numbness in extremities, change in bladder or bowel function. Patient also reports intermittent constipation and diarrhea controlled with MiraLax. Patient does not remember when was her last colonoscopy and will obtain records from [facility]. [facility] Medical History (Updated 01/26/25 @ 12:06 by Pina Plascencia MD) Depression Atrial flutter History of cardioversion Hyperlipidemia (HFpEF) heart failure with preserved ejection fraction Sick sinus syndrome Cardiac pacemaker in situ Paroxysmal atrial fibrillation CAD (coronary artery disease) Surgical History (Updated 01/26/25 @ 11:56 by Pina Plascencia MD) Status post transcatheter aortic valve replacement Hx of cataract extraction Hx of appendectomy Hx of esophagogastroduodenoscopy Hx of colonoscopy Stented coronary artery Family History Father Hypertension Heart attack COPD (chronic obstructive pulmonary disease) Mother Hypertension Daughter Substance use disorder Social History Housing: Condominium Patient Tobacco Use Status: Never used Tobacco e-Cigarette/Vaping Use: Never Used service: No Current occupational status: retired Current occupational exposures/hazards: No Cognitive needs: No Hearing needs: No Vision needs: No Questionnaire PHQ-9 Over the last 2 weeks, how often have you been bothered by any of the following problems? 1. Little interest or pleasure in doing things: not at all 2. Feeling down, depressed, or hopeless: not at all 3. Trouble falling or staying asleep, or sleeping too much: not at all 4. Feeling tired or having little energy: not at all 5. Poor appetite or overeating: not at all 6. Feeling bad about yourself - or that you are a failure or have let yourself or your family down: not at all 7. Trouble concentrating on things, such as reading the newspaper or watching television: not at all 8. Moving or speaking so slowly that other people could have noticed. Or the opposite - being so fidgety or restless that you have been moving around a lot more than usual: not at all 9. Thoughts that you would be better off or of hurting yourself in some way: not at all Total score: 0 Depression Screening Interpretation: Negative Depression Screening Done: Yes 86585 - PHQ-9 Billing: Yes Source: Developed by Drs. Roldan Arroyo, Jessi Silverio, Sergey Portillo and colleagues, with an educational laquita from [employer]. Thrive Questionnaire Date Thrive assessed: 01/26/25 I am a: Patient What is your living situation today?: I have a steady place to live Within the past 12 months, did the food you bought not last and you didn't have the money to get more?: Never true Within the past 12 months, did you worry whether your food would run out before you got money to buy more?: Never true Do you have trouble paying for medicines?: No Do you have trouble getting transportation to medical appointments?: No Do you have trouble paying your heating and electricity bill?: No Do you have trouble taking care of your child, family member or friend?: No Do you have trouble with day-to-day activities such as bathing, preparing meals, shopping, managing finances, etc.?: No Are you currently unemployed and looking for a job?: No Are you interested in more education?: No Please select the resources that you would like help with: None THRIVE Score: 0 AUDIT C Alcohol Use Questionnaire (AUDIT-C) 1. How often do you have a drink containing alcohol?: Never 3. How often do you have six or more drinks on one occasion?: Never Total Score: 0 ANURADHA-7 AMB Questionnaire ANURADHA-7 Date ANURADHA - 7 assessed: 01/26/25 Feeling nervous, anxious, or on edge: 0 = Not at all Not being able to stop or control worryin = Not at all Worrying too much about different things: 0 = Not at all Trouble relaxin = Not at all Being so restless that it is hard to sit still: 0 = Not at all Becoming easily annoyed or irritable: 0 = Not at all Feeling afraid as if something awful might happen: 0 = Not at all Total ANURADHA-7 score (0-4 normal; 5-9 mild; 10-14 moderate; 15-21 severe): 0 Source: Developed by Drs. Roldan Arroyo, Jessi Silverio, Sergey Portillo and colleagues, with an educational laquita from [employer]. ANURADHA-7 Assessment Billing ANURADHA-7 Assessment Tool: ANURADHA-7 Assessment 13206 Review of Systems Const All systems reviewed & are unremarkable except as noted in HPI and below Eyes Reports no additional complaints ENT Reports no additional complaints Card Reports no additional complaints Resp Reports no additional complaints GI Reports no additional complaints Reports no additional complaints Physical exam (Primary Care) Vital Signs: Last Vital Signs Temp 98.3 F 01/26/25 11:08 Pulse 92 01/26/25 11:08 Resp 18 01/26/25 11:08 BP 104/74 01/26/25 11:08 Pulse Ox 97 01/26/25 11:08 Oxygen Delivery Method Room Air 01/26/25 11:08 BMI result Body Mass Index 27.4 Tobacco/Smoking Status: Tobacco use Status Tobacco use date assessed 01/26/25 01/26/25 11:19 Patient Tobacco Use Status Never used Tobacco 01/26/25 11:19 e-Cigarette/Vaping Use Never Used 01/26/25 11:19 PHQ-9: PHQ-9 Score PHQ-9: Total score 0 01/26/25 11:19 Depression Screening Interpretation: Negative Thrive Assessment: Date of Thrive Assessment Date Thrive assessed 01/26/25 01/26/25 11:19 Const General: no acute distress HENMT Head: Yes normal to inspection Ears: TM's normal bilaterally Eyes General: appearance normal, both eyes and all related structures Neck Neck: Yes no lymphadenopathy and Yes supple Resp Effort & Inspection: normal respiratory effort Auscultation: clear to auscultation bilaterally Cardio Rhythm: regular rhythm Heart sounds: S1 normal heart sound present and S2 normal heart sound present GI Inspection: Yes normal to inspection Palpation (GI): Soft to palpation Percussion: Yes normal to percussion Auscultation: normal bowel sounds Coding Level of Care Code New Pt Level 4 (01541) Diagnoses CAD (coronary artery disease) I25.10 Postmenopausal Z78.0 (HFpEF) heart failure with preserved ejection fraction I50.30 Sick sinus syndrome I49.5 Additional Codes ANURADHA-7 Assessment Billing - ANURADHA-7 Assessment Tool: ANURADHA-7 Assessment 70343 ([id number]) PHQ-9 - 68775 - PHQ-9 Billing: Yes ([id number]) Assessment & Plan Assessment & Plan (1) CAD (coronary artery disease): Comment: s/p BETTY to distal circumflex 2006, cardiac cath 2017 no significant stenosis, established with [facility] cardi[facility] Code(s): I25.10 - Atherosclerotic heart disease of [place] coronary artery without angina pectoris Category: Medical Plan: Continue statin (2) Postmenopausal: Code(s): Z78.0 - Asymptomatic menopausal state Category: Medical Plan: Obtain DEXA (3) (HFpEF) heart failure with preserved ejection fraction: Comment: Echo 05/2024 EF 56%, grade 3 severe diastolic dysfunction, mild MR, moderate calcification of mitral valve Code(s): I50.30 - Unspecified diastolic (congestive) heart failure Category: Medical Plan: Managed on furosemide (4) Sick sinus syndrome: Comment: s/p pacemaker 2006 Code(s): I49.5 - Sick sinus syndrome Category: Medical Plan: Follow-up with the Cardiology for the battery replacement, patient will obtain records from [facility] and will return for fasting blood work, she will follow-up in 2 months Orders: Orders Complete Blood Count Auto Diff Today I10 - Essential (primary) hypertension, I50.30 - Unspecified diastolic (congestive) heart failure Hemoglobin A1c Today I10 - Essential (primary) hypertension, I50.30 - Unspecified diastolic (congestive) heart failure UA w Microscopic Today I10 - Essential (primary) hypertension, I50.30 - Unspecified diastolic (congestive) heart failure TSH reflex Free T4 Today I49.5 - Sick sinus syndrome MM screening mammo BI Today Z12.31 - Encounter for screening mammogram for malignant neoplasm of breast Comprehensive [place]. Panel Fast Today I10 - Essential (primary) hypertension, I50.30 - Unspecified diastolic (congestive) heart failure Lipid Panel Today I10 - Essential (primary) hypertension, I50.30 - Unspecified diastolic (congestive) heart failure Vitamin D 25-OH Total Today E55.9 - Vitamin D deficiency, unspecified XR DEXA axial skeleton Today I10 - Essential (primary) hypertension, I50.30 - Unspecified diastolic (congestive) heart failure, Z78.0 - Asymptomatic menopausal state Vitamin B12 and Folate Today E53.8 - Deficiency of other specified B group vitamins
--- OUTSIDE RECORDS SUMMARY | 2025-01-26 13:35 | XMS_ITS | Clinical Summary ---
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 Role Phone Fam Carcamo MD Primary [...] DEPRESSION SCREENING 1961 SMOKING Hx and SMOKELESS TOBACCO SCREENING 1962 HEPATITIS C SCREENING 12/13/1967 COLOGUARD 1994 COLONOSCOPY 1994 COLORECTAL CANCER SCREENING 1994 FIT TEST 1994 FOBT 1994 SIGMOIDOSCOPY 1994 VIRTUAL COLONOSCOPY 1994 PNEUMOCOCCAL VACCINES (50+ years) (1 of 1 - PCV) 12/13/1999 OSTEOPOROSIS SCREENING INITI AL (ONE-TIME) 2014 ZOSTER VACCINES (2 of 3) 02/11/2017 12/17/2016 INFLUENZA VACCINE (#1) 2024 0, 02/18/2011 RSV VACCINE (1 - 1-dose 75+ series) 2024 COVID-19 VACCINE (2 - 2024-2 6 season) 2025 07/17/2020 HEPATITIS A VACCINES Aged Out No long [...] BLUE REPLACEMENT MEDICARE PART A & B [facility] MEDICARE HMO BLUE REPLACEMENT MEDICARE PART A & B MEDICARE HMO BLUE REPLACEMENT MEDICARE PART A & B Member Subscriber Plan / Payer ( fective 2019-Present) Name:[facility] Member ID:[id number] Relation to Subscriber:Self Name:[facility] Subscriber ID:[id number] Payer ID:[id number] Group ID:Not on file Type:Medicare Address: [employer] [address] MEDICARE HMO BLUE REPLACEMENT MEDICARE PART A & B MEDICARE HMO BLUE REPLACEMENT MEDICARE PART A & B [facility] MEDICARE HMO BLUE REPLACEMENT MEDICARE PART A & B [facility] MEDICARE HMO BLUE REPLACEMENT MEDICARE PART A & B MEDICARE HMO BLUE REPLACEMENT MEDICARE PART A & B Member Subscriber Plan / Payer (Ef fective 2019-Present) Name:[facility] Member ID:[id number] Relation to Subscriber:Self Name:[facility] Subscriber ID:[id number] Payer ID:[id number] Group ID:Not on file Type:Medicare Address: [employer] [address] MEDICARE HMO BLUE REPLACEMENT Care Teams Fractionation Plant Supervisor Relationship Specialty Start Date End Date Fam Carcamo MD PCP - General Internal Medicine 04/01/18 Additional Source Comments The information contained in this document represents components of the legal health record. It is not the complete legal health record.[facility]
--- OUTSIDE RECORDS SUMMARY | 2025-01-26 13:35 | XMS_ITS | Patient Health Record ---
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 Role Phone Fam Carcamo Primary Care Provider Stephen Harmon Unavailable [phone] Allergies Allergen (clinical drug ingredient) Drug/Non Drug [...] Status Risk Notes Problem Acquired hallux valgus (57508543) Hallux valgus (acquired), right foot (M20.11) Active confirmed Problem Raynaud's disease (249593117) Raynaud's disease without gangrene (I73.00) Active confirmed Plan Of Treatment Pending Test Test Name Order Date X ray : Foot, right 3V 10/06/2022 Insurance Providers Payer Name Payer Address Payer Phone Subscriber Number Group Number Insured Name Patient Relationship to Insured Coverage Start Date Coverage End Date BlueCare 65 Medicare Preferred [address] [place] [address] [id number] [facility] Self - patient is the insured Medical (General) History Medical History History ICD Code Back,Hip,and Knee pain Measles Mumps Chicken pox Glaucoma Heart disease Transfusions Surgical History Surgery Date(Month/Year)
== END 2025-01-26 12:07 | disposition home or self-care (01) ==
LOC: HO.HMCC 10:57
PROVIDERS: PCP Internal Medicine; Visit Provider Internal Medicine
DX: I25.10 Atherosclerotic heart disease of native coronary artery without angina pectoris (principal); Z78.0 Asymptomatic menopausal state; I50.30 Unspecified diastolic (congestive) heart failure; I49.5 Sick sinus syndrome

== ENCOUNTER → 2025-01-26 10:57 | Outpatient (BNVA) | payer MEDICARE, SELFPAY | PROVIDERS: PCP Internal Medicine; Visit Provider Internal Medicine | DX: I25.10 Atherosclerotic heart disease of native coronary artery without angina pectoris (principal); I48.91 Unspecified atrial fibrillation; K59.00 Constipation, unspecified; R19.7 Diarrhea, unspecified; I11.0 Hypertensive heart disease with heart failure; I50.30 Unspecified diastolic (congestive) heart failure; I49.5 Sick sinus syndrome; E53.8 Deficiency of other specified B group vitamins; Z78.0 Asymptomatic menopausal state; Z95.0 Presence of cardiac pacemaker; Z79.01 Long term (current) use of anticoagulants | CPT/HCPCS: 96127; 99202 ==

== ENCOUNTER 2025-02-12 08:57 | Outpatient (REF) | payer MEDICARE, SELFPAY ==
[2025-02-12 14:06] LABS: Hematocrit 34.5 % (37.0-47.0); Hemoglobin 10.9 g/dl (12.0-16.0); Imm Gran Abs Auto 0.03 X10*3/uL (0.00-0.03); Imm Gran Pct Auto 0.6 % (0.0-0.4); Lymphocytes Absolute Auto 1.0 X10*3/uL (1.2-4.9); MANUAL DIFF FLAG SCAN; Mean Corpuscular HGB Conc 31.6 g/dl (31.0-35.0); Mean Corpuscular Hemoglobin 30.7 pg (27.0-33.0); Mean Corpuscular Volume 97.2 fL (80.0-98.0); NRBC Abs Auto 0.000 X10*3/uL (0.0-0.012); NRBC Pct Auto 0.0 /100WBC (0.0-0.2); Red Blood Count 3.55 X10*6/uL (4.20-5.50); SCAN SMEAR FLAG 1; White Blood Count 5.3 X10*3/uL (4.8-10.8)
[2025-02-12 14:26] LABS: Alanine Aminotransferase 21 U/L (0-31); Albumin Level 4.5 g/dL (3.5-5.0); Alkaline Phosphatase 67 U/L (39-117); Anion Gap 10 (12-20); Aspartate Amino Transferase 23 U/L (5-31); Blood Urea Nitrogen 20 mg/dL (9-16); Calcium 9.1 mg/dL (8.4-10.2); Carbon Dioxide 30 mmol/L (22-29); Chloride 108 mmol/L (96-108); Cholesterol 143 mg/dL (<200); Estimated Glomerular Filt Rate > 60; HDL Cholesterol 37 mg/dL (>40); Potassium 4.4 mmol/L (3.3-5.1); Sodium 144 mmol/L (135-145); Total Protein 7.2 g/dL (6.5-8.0); Triglycerides 128 mg/dL (<150)
[2025-02-12 14:52] LABS: Folate 13.1 ng/mL (> or = 4.0); Vitamin B12 1352 pg/mL (200-900)
[2025-02-12 15:03] LABS: Platelet Count 86 X10*3/uL (160-400)
[2025-02-12 16:37] LABS: Appearance Urine Clear; Glucose Urine UA Negative (Negative); PH 7.5 (5.0-9.0); Specific Gravity - Urine 1.020 (1.005-1.025); UMIC TRIGGER UA YES
== END 2025-02-12 08:58 | disposition home or self-care (01) ==
LOC: HO.HMGCLDS 08:57
PROVIDERS: Visit Provider Internal Medicine
DX: I11.0 Hypertensive heart disease with heart failure (principal); I50.30 Unspecified diastolic (congestive) heart failure; E53.8 Deficiency of other specified B group vitamins; I49.5 Sick sinus syndrome; E55.9 Vitamin D deficiency, unspecified; Z13.1 Encounter for screening for diabetes mellitus
CPT/HCPCS: 36415; 80053; 80061; 81001; 82306; 82607; 82746; 83036; 84443; 85025

== ENCOUNTER 2025-02-13 12:30 | Day surgery (SDC) | payer MEDICARE, SELFPAY ==
[2025-02-13] VITALS (9 sets, daily range): BP systolic 108–128; BP diastolic 56–69; PULSE 63–76; RESP 16–18; TEMP 36.5–36.8; O2SAT 95–97; BMI 27.5
--- NOTE | 2025-02-13 13:07 | ECG_ITS ---
Test Reason : PREOP Blood Pressure : */* mmHG Vent. Rate : 63 BPM Atrial Rate : 63 BPM P-R Int : 264 ms QRS Dur : 82 ms QT Int : 476 ms P-R-T Axes : 76 29 27 degrees QTcB Int : 487 ms Atrial-paced rhythm with prolonged AV conduction Abnormal ECG When compared with ECG of 16-Jul-2018 11:27, No significant change was found Referred By: Barrett Wilkinson Electronically Signed By: WILD OCAMPO MD
[2025-02-13] MEDS: Lactated Ringers 1,000 ML 50 ML IVCONT (13:35)
--- NOTE | 2025-02-13 15:57 | HO.ANESPROP2 ---
[facility] Active Problems Active Problems: All Active Problems Vitamin D deficiency (Acute) Vitamin B 12 deficiency (Acute) Postmenopausal (Acute) Exertional dyspnea (Acute) Raynauds disease (Acute) Stented coronary artery (Acute) Depression (Acute) Status post transcatheter aortic valve replacement (Acute) Paroxysmal atrial fibrillation (Acute) Sick sinus syndrome (Acute) Cardiac pacemaker in situ (Acute) CAD (coronary artery disease) (Acute) (HFpEF) heart failure with preserved ejection fraction (Acute) Hyperlipidemia (Acute) Past Medical History Medical History Former smoker Sleep apnea Depression Atrial flutter History of cardioversion Hyperlipidemia (HFpEF) heart failure with preserved ejection fraction Sick sinus syndrome Cardiac pacemaker in situ Paroxysmal atrial fibrillation CAD (coronary artery disease) Family History Family History Father Hypertension Heart attack COPD (chronic obstructive pulmonary disease) Mother Hypertension Daughter Substance use disorder Family history of problems with anesthesia: No Surgical History Surgical History Status post transcatheter aortic valve replacement Hx of cataract extraction Hx of appendectomy Hx of esophagogastroduodenoscopy Hx of colonoscopy Stented coronary artery History of Problems with Anesthesia: No Social History Social History Housing: Condominium Patient Tobacco Use Status: Never used Tobacco e-Cigarette/Vaping Use: Never Used Advance Directives: No Advance Directives Information Provided: Yes service: No Current occupational status: retired Current occupational exposures/hazards: No Cognitive needs: No Hearing needs: No Vision needs: No Meds Allergies Allergy/AdvReac Type Severity Reaction Status Date / Time codeine (CODEINE) Allergy Unknown TACHYCARDIA, Verified 02/13/25 13:07 HIVES, DIZZINESS Active Medications: Current Medications Lactated Ringer's (Lr) 1,000 mls @ 50 mls/hr IVCONT .Q20H SHAVON Last Admin: 02/13/25 13:35 Dose: 50 mls/hr Home Medications ?Medication ?Instructions ?Recorded ?Confirmed ?Last Taken ?Type citalopram 10 mg tablet 10 mg PO DAILY 03/09/20 02/13/25 03/26/24 History latanoprost 0.005 % eye drops 1 drp ophthalmic (eye) DAILY 03/09/20 02/13/25 03/25/24 History rosuvastatin 10 mg tablet 10 mg PO BEDTIME 03/09/20 02/13/25 03/25/24 History cetirizine 10 mg tablet 10 mg PO DAILY PRN Allergy Symptoms 01/26/25 02/13/25 Unknown History citalopram 20 mg tablet 20 mg PO DAILY 01/26/25 02/13/25 Unknown History multivitamin 1 tab PO DAILY 01/26/25 02/13/25 Unknown History omega 5-tka-kfp-fish oil 1,200 mg 1 cap PO DAILY 01/26/25 02/13/25 Unknown History (144 mg-216 mg) capsule (Fish Oil) omeprazole 20 mg capsule,delayed 20 mg PO DAILY 01/26/25 02/13/25 Unknown History release Exam Exam Date and Time: 02/13/25 Height,Weight and Vital Signs: Height 5 ft 5 in Weight 75 kg Last Vital Signs Temp 98.1 F 02/13/25 13:17 Pulse 63 02/13/25 13:17 Resp 16 02/13/25 13:17 BP 128/69 02/13/25 13:17 Pulse Ox 97 02/13/25 13:17 O2 Del Method Room Air 02/13/25 13:17 Airway Mallampati Class: II TM Dist: >3cm Neck ROM: Full Heart: rrr with valve click Lungs: ctab vesicular Assessment and Plan Assessment Anesthesia Assessment: Anesthesia Plan Discussed and Chart Reviewed Final Anesthetic Review Family History of Problems with Anesthesia: No History of Problems with Anesthesia: No ASA Class: II Final Preanesthetic Review: No Changes in Pt Med Stat, Meds/Allgs Chart Reviewed, Consent Obtained/Reviewed and Anes Risks/Benef Reviewed Patient Risk: Low Procedure Risk: Low Anesthetic Plan Anesthetic Plan: GA Disposition: Standard PACU
--- NOTE | 2025-02-14 10:13 | W.PM.OPN ---
Operative Note Operative Note Date of Service: 02/13/25 Narrative: Indication: Dual chamber pacemaker generator BING Sinus node dysfunction Summary: 1. Generator replacement of [place] dual chamber pacemaker (CPT 07544) Narrative: Patient presented to the lab in a fasting, nonsedated state after written informed consent was verified. The procedure was performed under general anesthesia. 2g IV Ancef was administered prior to skin incision. The patient was prepped and draped in the usual sterile manner. A 1-inch incision was made medial to left deltopectoral groove. The pacemaker pocket was exposed using a combination of electrocautery and blunt dissection. The existing generator was removed from the pocket. The new pacemaker generator was brought to the field. The leads were detached from the existing pacemaker and promptly inserted into the respective ports of the new generator. The leads were secured in the header using the provided torque wrench. A gentle tug test confirmed the leads to be secured within the new generator. The pocket was flushed with an antibiotic irrigant. Any bleeders within the pocket were controlled with electrocautery. The leads were wrapped underneath the new generator and the pacemaker was placed back within the existing pocket. A TYRX envelope was placed within the pocket. Pacemaker testing showed lead parameters to be within the desirable range. The pocket was closed in three layers using 2-0 followed by 4-0 V-Loc. Dermabond was applied over the incision site. Gauze and tegaderm dressing were then placed over the incision site. A pressure dressing was then applied over the pacemaker pocket. Patient was then transported back to recovery in a stable condition. Recommendations: 1. Keep chest incision site dry for 7 days. 2. Remove the gauze and Tegaderm dressing after 4 days. 3. Follow up in clinic in 1-2 weeks for incision site check. 4. Resume Eliquis on 02/17/25. Procedure start: 4:30 PM Procedure end: 5:13 PM
--- NOTE | 2025-02-14 10:25 | PM.CNCAR ---
History of Present Illness History of Present Illness Date of Service: 02/14/25 Requesting physician: Rich Daniels Chief complaint: Encounter for adjustment and management Narrative: 74-year old female with medical history significant for atrial fibrillation, sinus node dysfunction s/p dual chamber pacemaker, CAD s/p PCI, severe s/p HUNG, and HFpEF is referred to EP for generator replacement of dual chamber pacemaker reaching BNIG. She denies recent episodes of cp, sob, palpitations, or lightheadedness. Review of Systems Review of Systems: All systems reviewed and found to be negative. [facility] Past Medical History Medical History Former smoker Sleep apnea Depression Atrial flutter History of cardioversion Hyperlipidemia (HFpEF) heart failure with preserved ejection fraction Sick sinus syndrome Cardiac pacemaker in situ Paroxysmal atrial fibrillation CAD (coronary artery disease) Family History Family History Father Hypertension Heart attack COPD (chronic obstructive pulmonary disease) Mother Hypertension Daughter Substance use disorder Surgical History Surgical History Status post transcatheter aortic valve replacement Hx of cataract extraction Hx of appendectomy Hx of esophagogastroduodenoscopy Hx of colonoscopy Stented coronary artery Social History [facility] Patient Tobacco Use Status: Never used Tobacco e-Cigarette/Vaping Use: Never Used service: No Current occupational status: retired Current occupational exposures/hazards: No Cognitive needs: No Hearing needs: No Vision needs: No Meds Allergies Allergy/AdvReac Type Severity Reaction Status Date / Time codeine (CODEINE) Allergy Unknown TACHYCARDIA, Verified 02/13/25 13:07 HIVES, DIZZINESS Home Medications ?Medication ?Instructions ?Recorded ?Confirmed ?Last Taken ?Type citalopram 10 mg tablet 10 mg PO DAILY 03/09/20 02/13/25 03/26/24 History latanoprost 0.005 % eye drops 1 drp ophthalmic (eye) DAILY 03/09/20 02/13/25 03/25/24 History rosuvastatin 10 mg tablet 10 mg PO BEDTIME 03/09/20 02/13/25 03/25/24 History cetirizine 10 mg tablet 10 mg PO DAILY PRN Allergy Symptoms 01/26/25 02/13/25 Unknown History citalopram 20 mg tablet 20 mg PO DAILY 01/26/25 02/13/25 Unknown History multivitamin 1 tab PO DAILY 01/26/25 02/13/25 Unknown History omega 7-jgj-xpx-fish oil 1,200 mg 1 cap PO DAILY 01/26/25 02/13/25 Unknown History (144 mg-216 mg) capsule (Fish Oil) omeprazole 20 mg capsule,delayed 20 mg PO DAILY 01/26/25 02/13/25 Unknown History release Physical Exam Exam: Exam: Head: atrumatic Neck: supple Eyes: anicteric Lungs: CTAB Heart: RRR Abd: soft Exts: warm Neuro: no gross focal deficits Psych: stable Vital Signs: Vital Signs: Last Vital Signs Temp 98.2 F 02/13/25 18:16 Pulse 73 02/13/25 18:16 Resp 16 02/13/25 18:16 BP 126/63 02/13/25 18:16 Pulse Ox 97 02/13/25 18:16 O2 Del Method Room Air 02/13/25 18:16 BMI result Body Mass Index 27.5 Assessment and Plan (1) Atrial fibrillation: Status: Acute (2) Pacemaker at end of battery life: Status: Acute (3) Hyperlipidemia: Status: Acute (4) CAD (coronary artery disease): Status: Acute Plan No recent infections, fevers, or open wounds present. Risks, benefits, and alternatives of dual chamber pacemaker at BING discussed with the patient and her . We mutually decided to proceed forward with the procedure. 60 mins spent in the care of this pt. CPT 95938. Total time managing care of this patient today: 60 minutes. Procedures Date of Service Date of Service: 02/14/25
== END 2025-02-13 18:19 | disposition home or self-care (01) ==
PROVIDERS: PCP Internal Medicine; Visit Provider Student in an Organized Health Care Education/Training Program
PROC: (CPT 33228; principal; 2025-02-13 16:00)
DX: I48.91 Unspecified atrial fibrillation (principal); E78.5 Hyperlipidemia, unspecified; I11.0 Hypertensive heart disease with heart failure; I50.32 Chronic diastolic (congestive) heart failure; I25.10 Atherosclerotic heart disease of native coronary artery without angina pectoris; Z45.02 Encounter for adjustment and management of automatic implantable cardiac defibrillator; I49.5 Sick sinus syndrome; I48.92 Unspecified atrial flutter; Z79.01 Long term (current) use of anticoagulants; Z79.899 Other long term (current) drug therapy
CPT/HCPCS: 33228; 93005; C1785; C1889; J0131; J0690; J1100; J2003; J2250; J2371; J2405; J2704; J3010; J3374

== ENCOUNTER → 2025-02-13 13:07 | Outpatient (BNV) | payer MEDICARE, SELFPAY | PROVIDERS: PCP Internal Medicine; Visit Provider Internal Medicine Cardiovascular Disease | DX: R94.31 Abnormal electrocardiogram [ECG] [EKG] (principal); Z01.810 Encounter for preprocedural cardiovascular examination | CPT/HCPCS: 93010 ==

== ENCOUNTER → 2025-03-26 12:38 | Outpatient (BNV) | payer MEDICARE, SELFPAY | PROVIDERS: PCP Internal Medicine | DX: Z45.018 Encounter for adjustment and management of other part of cardiac pacemaker (principal) | CPT/HCPCS: 93294 ==

== ENCOUNTER 2025-03-30 11:22 | Outpatient (REF) | payer MEDICARE, SELFPAY ==
[2025-03-30 17:12] LABS: Iron 82 mcg/dL (30-160); Percent Iron Saturation 27 % (15-50); Total Iron Binding Capacity 300 mcg/dL (228-428); Unsaturated Iron Binding 218 ug/dL
== END 2025-03-30 11:23 | disposition home or self-care (01) ==
LOC: HO.HMGCLDS 11:22
PROVIDERS: PCP Internal Medicine; Visit Provider Internal Medicine
DX: K52.9 Noninfective gastroenteritis and colitis, unspecified (principal); I48.0 Paroxysmal atrial fibrillation; I50.30 Unspecified diastolic (congestive) heart failure; I73.00 Raynaud's syndrome without gangrene; F32.A Depression, unspecified; D69.6 Thrombocytopenia, unspecified; E78.5 Hyperlipidemia, unspecified; I49.5 Sick sinus syndrome; Z79.899 Other long term (current) drug therapy; Z13.31 Encounter for screening for depression
CPT/HCPCS: 36415; 82105; 82784; 83540; 86334; 96127; 99212

== ENCOUNTER 2025-03-30 11:22 | Outpatient (AMB) | payer MEDICARE, SELFPAY ==
[2025-03-30 11:32] VITALS: BP 110/68; PULSE 75; RESP 17; TEMP 36.7; O2SAT 95; BMI 28.5
--- NOTE | 2025-03-30 11:32 | A.OFFPC_ITS ---
Vital Signs 03/30/25 11:32 Height 5 ft 5 in Weight 171 lb BMI 28.5 BP 110/68 Blood Pressure Location Rt brachial Position Sitting Respiration 17 Pulse 75 Pulse Source Pulse Oximeter Temp 98.1 F Temp Source Oral Pulse Oximetry (%) 95 Oxygen Delivery Method Room Air Intake Visit Reasons: 2 months f/up Intake Note: Pt is here today for 2 months follow up visit. Allergies codeine (CODEINE) Allergy (Unknown, Verified 03/30/25 11:36) TACHYCARDIA, HIVES, DIZZINESS Medication List - Last Reconciled 03/30/25 by Pina Plascencia MD apixaban (Eliquis) 5 mg PO BID cetirizine 10 mg PO DAILY PRN citalopram 10 mg PO DAILY citalopram 20 mg PO DAILY furosemide (Lasix) 20 mg PO DIRECTED 90 days latanoprost 0.005% 1 drp ophthalmic (eye) DAILY multivitamin 1 tab PO DAILY omega 6-cpj-nbc-fish oil 1,200 (144-216) mg (Fish Oil) 1 cap PO DAILY omeprazole 20 mg PO DAILY rosuvastatin 10 mg PO BEDTIME sotalol 80 mg PO BID Tobacco use date assessed: 03/30/25 Fall risk assessment: 1 Fall in past year Last assessed Fall Risk: 03/30/25 Dental Screening Dental Screen Date: 01/26/25 HPI 2 months f/up HPI Details Pt presents for f/u. Pt reports chronic diarhea up to 3 times a week for the last 6 months. She denies any change in diet or weight loss. Patient has been taking MiraLax 3 times a week decreasing from daily in the past. She reports not able to have a bowel movement for up to week if she does not take MiraLax. Patient denies abdominal pain hematochezia melena nausea vomiting change in appetite fever chills, Patient complains of Raynaud syndrome getting worse in the cold weather despite wearing warm socks. Patient complains of chronic small ulcers forming on the toes in the cold weather. She had evaluation by vascular surgeon at [facility] and calcium channel more was tried without improvement. Heart failure with preserved ejection fraction chronic AFib rhythm controlled on citalopram all in anticoagulated on Eliquis are stable. [facility] Medical History (Updated 03/30/25 @ 12:36 by Pina Plascencia MD) Chronic diarrhea Thrombocytopenia Raynauds disease Former smoker Sleep apnea Depression Atrial flutter History of cardioversion Hyperlipidemia (HFpEF) heart failure with preserved ejection fraction Sick sinus syndrome Cardiac pacemaker in situ Paroxysmal atrial fibrillation CAD (coronary artery disease) Surgical History (Updated 03/30/25 @ 12:31 by Pina Plascencia MD) Status post transcatheter aortic valve replacement Hx of cataract extraction Hx of appendectomy Hx of esophagogastroduodenoscopy Hx of colonoscopy Stented coronary artery Family History Father Hypertension Heart attack COPD (chronic obstructive pulmonary disease) Mother Hypertension Daughter Substance use disorder Social History Housing: [facility] Patient Tobacco Use Status: Never used Tobacco e-Cigarette/Vaping Use: Never Used service: No Current occupational status: retired Current occupational exposures/hazards: No Cognitive needs: No Hearing needs: No Vision needs: No Questionnaire PHQ-9 Over the last 2 weeks, how often have you been bothered by any of the following problems? 1. Little interest or pleasure in doing things: not at all 2. Feeling down, depressed, or hopeless: not at all 3. Trouble falling or staying asleep, or sleeping too much: several days 4. Feeling tired or having little energy: several days 5. Poor appetite or overeating: not at all 6. Feeling bad about yourself - or that you are a failure or have let yourself or your family down: not at all 7. Trouble concentrating on things, such as reading the newspaper or watching television: not at all 8. Moving or speaking so slowly that other people could have noticed. Or the opposite - being so fidgety or restless that you have been moving around a lot more than usual: not at all 9. Thoughts that you would be better off or of hurting yourself in some way: not at all Total score: 2 Depression Screening Interpretation: Negative Depression Screening Done: Yes Source: Developed by Drs. Roldan Arroyo, Jessi Silverio, Sergey Portillo and colleagues, with an educational laquita from [employer]. Thrive Questionnaire Date Thrive assessed: 03/23/25 I am a: Patient What is your living situation today?: I have a steady place to live Within the past 12 months, did the food you bought not last and you didn't have the money to get more?: Never true Within the past 12 months, did you worry whether your food would run out before you got money to buy more?: Never true Do you have trouble paying for medicines?: No Do you have trouble getting transportation to medical appointments?: No Do you have trouble paying your heating and electricity bill?: No Do you have trouble taking care of your child, family member or friend?: No Do you have trouble with day-to-day activities such as bathing, preparing meals, shopping, managing finances, etc.?: No Are you currently unemployed and looking for a job?: No Are you interested in more education?: No Please select the resources that you would like help with: None Currently or been in a relationship where the following occur: No concerns reported THRIVE Score: 0 AUDIT C Alcohol Use Questionnaire (AUDIT-C) 1. How often do you have a drink containing alcohol?: Never 3. How often do you have six or more drinks on one occasion?: Never Total Score: 0 ANURADHA-7 AMB Questionnaire ANURADHA-7 Date ANURADHA - 7 assessed: 01/26/25 Feeling nervous, anxious, or on edge: 0 = Not at all Not being able to stop or control worryin = Not at all Worrying too much about different things: 0 = Not at all Trouble relaxin = Not at all Being so restless that it is hard to sit still: 0 = Not at all Becoming easily annoyed or irritable: 0 = Not at all Feeling afraid as if something awful might happen: 0 = Not at all Total ANURADHA-7 score (0-4 normal; 5-9 mild; 10-14 moderate; 15-21 severe): 0 Source: Developed by Drs. Roldan Arroyo, Jessi Silverio, Sergey Portillo and colleagues, with an educational laquita from [employer]. Review of Systems Const All systems reviewed & are unremarkable except as noted in HPI and below Eyes Reports no additional complaints ENT Reports no additional complaints Card Reports no additional complaints Resp Reports no additional complaints GI Reports no additional complaints Reports no additional complaints Physical exam (Primary Care) Vital Signs: Last Vital Signs Temp 98.1 F 03/30/25 11:32 Pulse 75 03/30/25 11:32 Resp 17 03/30/25 11:32 BP 110/68 03/30/25 11:32 Pulse Ox 95 03/30/25 11:32 Oxygen Delivery Method Room Air 03/30/25 11:32 BMI result Body Mass Index 28.5 Tobacco/Smoking Status: Tobacco use Status Tobacco use date assessed 03/30/25 03/30/25 11:39 Patient Tobacco Use Status Never used Tobacco 03/30/25 11:39 e-Cigarette/Vaping Use Never Used 03/30/25 11:39 PHQ-9: PHQ-9 Score PHQ-9: Total score 2 03/30/25 11:39 Depression Screening Interpretation: Negative Thrive Assessment: Date of Thrive Assessment Date Thrive assessed 03/23/25 03/30/25 11:39 Currently or been in a relationship where the following occur: No concerns reported Const General: no acute distress HENMT Mouth: Normal oral and palatal mucosa present Neck Neck: Yes supple Resp Effort & Inspection: normal respiratory effort Auscultation: clear to auscultation bilaterally Cardio Rhythm: regular rhythm Heart sounds: S1 normal heart sound present and S2 normal heart sound present GI Inspection: Yes normal to inspection Palpation (GI): Soft to palpation Percussion: Yes normal to percussion Auscultation: normal bowel sounds Extrem Other: Bluish discoloration of distal toes tips, poor capillary refill General: Yes no clubbing, cyanosis or edema Coding Level of Care Code Est Pt Level 4 (31276) Diagnoses Chronic diarrhea K52.9 Paroxysmal atrial fibrillation I48.0 (HFpEF) heart failure with preserved ejection fraction I50.30 Raynaud's disease without gangrene I73.00 Raynaud?s-associated gangrene presence: without gangrene Depression F32.A Thrombocytopenia D69.6 Hyperlipidemia E78.5 Assessment & Plan Assessment & Plan (1) Chronic diarrhea: Comment: On MiraLax, question ? chronic constipation, refer to , check records from [facility] for last colonoscopy Code(s): K52.9 - Noninfective gastroenteritis and colitis, unspecified Category: Medical Plan: Patient was advised to stop taking MiraLax. She was advised to start a fiber supplement such as Citrucel and add stool softener as needed for constipation. Increasing fluids fiber intake and physical activity. Referred to GI Dr. Piedra, obtain copy of the most recent colonoscopy from [facility] (2) Paroxysmal atrial fibrillation: Comment: Established with [facility] Code(s): I48.0 - Paroxysmal atrial fibrillation Category: Medical Plan: Continue current medications (3) (HFpEF) heart failure with preserved ejection fraction: Comment: Echo 05/2024 EF 56%, grade 3 severe diastolic dysfunction, mild MR, moderate calcification of mitral valve Code(s): I50.30 - Unspecified diastolic (congestive) heart failure Category: Medical Plan: Continue current medications, patient is not on JOYCE inhibitor or SGLT 2 inhibitor, check records (4) Raynauds disease: Comment: Evaluated by vascular surgeon at [facility], patient tried calcium channel blockers in the past without improvement Code(s): I73.00 - Raynaud's syndrome without gangrene Category: Medical Qualifiers: Raynaud?s-associated gangrene presence: without gangrene Qualified Code(s): I73.00 - Raynaud's syndrome without gangrene Plan: Patient was advised to keep her feet warm and try nitroglycerin ointment topically as needed (5) Depression: Comment: controlled on Citalopram Code(s): F32.A - Depression, unspecified Category: Medical Plan: Continue current medications (6) Thrombocytopenia: Comment: History of alcohol abuse quit more than 20 years ago Code(s): D69.6 - Thrombocytopenia, unspecified Category: Medical Plan: Obtain abdominal ultrasound to evaluate for splenomegaly and liver cirrhosis (7) Hyperlipidemia: Code(s): E78.5 - Hyperlipidemia, unspecified Category: Medical Plan: Continue statin Orders: Orders IRON PROFILE Today I48.0 - Paroxysmal atrial fibrillation, I48.91 - Unspecified atrial fibrillation, I49.5 - Sick sinus syndrome, I50.30 - Unspecified diastolic (congestive) heart failure Immunofixation Pnl, Serum Today I48.0 - Paroxysmal atrial fibrillation, I48.91 - Unspecified atrial fibrillation, I49.5 - Sick sinus syndrome, I50.30 - Unspecified diastolic (congestive) heart failure Alpha Fetoprotein Today I48.0 - Paroxysmal atrial fibrillation, I48.91 - Unspecified atrial fibrillation, I49.5 - Sick sinus syndrome, I50.30 - Unspecified diastolic (congestive) heart failure Comprehensive [place]. Panel Fast 4 Months D69.6 - Thrombocytopenia, unspecified, E78.5 - Hyperlipidemia, unspecified, I48.91 - Unspecified atrial fibrillation Complete Blood Count Auto Diff 4 Months D69.6 - Thrombocytopenia, unspecified, E78.5 - Hyperlipidemia, unspecified, I48.91 - Unspecified atrial fibrillation US abdomen complete Today D64.9 - Anemia, unspecified, D69.6 - Thrombocytopenia, unspecified Lipid Panel 4 Months D69.6 - Thrombocytopenia, unspecified, E78.5 - Hyperlipidemia, unspecified, I48.91 - Unspecified atrial fibrillation Referrals Gastroenterology Referral K52.9 - Noninfective gastroenteritis and colitis, unspecified Medications: New nitroglycerin 2% apply to toes once a day 30 grams 2RF
--- OUTSIDE RECORDS SUMMARY | 2025-03-30 14:57 | XMS_ITS | Clinical Summary ---
Author Organization [facility] Address [address] [facility] [address] [place] [id number] Phone Care Team Providers Care Manager Appointment Name Role Phone Fam Carcamo MD Primary [...] BLUE REPLACEMENT MEDICARE PART A & B [facility] MEDICARE HMO BLUE REPLACEMENT MEDICARE PART A & B MEDICARE HMO BLUE REPLACEMENT MEDICARE PART A & B Member Subscriber Plan / Payer ( fective 2019-Present) Name:[facility] Member ID:[id number] Relation to Subscriber:Self Name:[facility] Subscriber ID:[id number] Payer ID:[id number] Group ID:Not on file Type:Medicare Address: [employer] [address] MEDICARE HMO BLUE REPLACEMENT MEDICARE PART A & B MEDICARE HMO BLUE REPLACEMENT MEDICARE PART A & B [facility] MEDICARE HMO BLUE REPLACEMENT MEDICARE PART A & B [facility] MEDICARE HMO BLUE REPLACEMENT MEDICARE PART A & B MEDICARE HMO BLUE REPLACEMENT MEDICARE PART A & B Member Subscriber Plan / Payer (Ef fective 2019-Present) Name:[facility] Member ID:[id number] Relation to Subscriber:Self Name:[facility] Subscriber ID:[id number] Payer ID:[id number] Group ID:Not on file Type:Medicare Address: [employer] [address] MEDICARE HMO BLUE REPLACEMENT Care Teams Manager Appointment Relationship Specialty Start Date End Date Fam Carcamo MD PCP - General Internal Medicine 04/01/18 Additional Source Comments The information contained in this document represents components of the legal health record. It is not the complete legal health record.[facility]
== END 2025-03-30 12:40 | disposition home or self-care (01) ==
LOC: HO.HMCC 11:23
PROVIDERS: PCP Internal Medicine; Visit Provider Internal Medicine
DX: K52.9 Noninfective gastroenteritis and colitis, unspecified (principal); I48.0 Paroxysmal atrial fibrillation; I50.30 Unspecified diastolic (congestive) heart failure; I73.00 Raynaud's syndrome without gangrene; F32.A Depression, unspecified; D69.6 Thrombocytopenia, unspecified; E78.5 Hyperlipidemia, unspecified

== ENCOUNTER 2025-04-01 08:18 | Outpatient (REF) | payer MEDICARE, SELFPAY ==
--- NOTE | ~2025-04-01 | MM_ITS ---
EXAMINATION: DXA BONE DENSITY AXIAL HISTORY: Z78.0 - Asymptomatic menopausal state TECHNIQUE: [employer] Dual energy absorptiometry (DEXA) of the lumbar spine, total left hip, and femoral neck was performed. COMPARISON: There are no prior studies for comparison. FINDINGS: The bone mineral density of the lumbar spine is 1.828 g/cm2, corresponding to a T-score of 5.2, and a Z-score of 6.6. This is indicative of normal bone mineral density. The bone mineral density of the left total hip is 1.042 g/cm2, corresponding to a T-score of 0.3, and a Z-score of 1.8. This is indicative of normal bone mineral density. The bone mineral density of the left femoral neck is 0.983 g/cm2, corresponding to a T-score of -0.5, and a Z-score of 1.3. This is indicative of normal bone mineral density. MM/XR DEXA axial skeleton IMPRESSION: Based on bone mineral density, and according to World Health Organization (WHO) criteria, the diagnosis is consistent with normal bone mineral density. Statistically, 68% of repeat scans fall within 1 SD (+/- 0.010 g/cm2 for AP spine L1-L4) and 1 SD (+/- 0.012 g/cm2 for femur total) FRAX is a trademark of the [employer] Met[employer], a World Health Organization (WHO) Collaborating Center. Electronically signed by: Rodlan Sullivan MD 04/01/2025 09:13 AM EST
--- NOTE | ~2025-04-01 | MM_ITS ---
EXAMINATION: MM SCREENING DIGITAL BREAST TOMOSYNTHESIS, BILATERAL CLINICAL INFORMATION: Screening. Asymptomatic. COMPARISON: Mammography: Comparison is made with available priors TECHNIQUE: Digital breast mammography with tomosynthesis is performed in both the craniocaudal and mediolateral oblique views along with computer-aided detection (CAD). FINDINGS: There are scattered areas of fibroglandular density. Left: Left pacemaker overlies and obscures the superior posterior left breast on MLO view. There are no significant masses, abnormal calcifications, or other abnormalities. Right: Asymmetry superior breast anterior depth on MLO view. Asymmetry lateral breast middle depth on CC view. Asymmetry medial breast anterior depth on CC view. No suspicious calcifications or other abnormal findings. MM/MM tomosynthesis screening BI IMPRESSION: Additional imaging is recommended ASSESSMENT: BI-RADS Category 0: Incomplete - Need additional Imaging Evaluation RECOMMENDATION: 1. Additional views of the right breast. 2. Targeted ultrasound if warranted after review of the additional views. 3. Radiology department staff will contact the patient for additional imaging. Additional Imaging required Electronically signed by: Kimberley Gaming DO 04/06/2025 03:55 PM EST
--- OUTSIDE RECORDS SUMMARY | 2025-04-01 08:37 | XMS_ITS | Clinical Summary ---
Author Organization [facility] Address [address] [facility] [address] [place] [phone] Phone Care Team Providers Care Stock Handler Floorperson Name Role Phone Fam Carcamo MD Primary [...] BLUE REPLACEMENT MEDICARE PART A & B [facility] MEDICARE HMO BLUE REPLACEMENT MEDICARE PART A & B MEDICARE HMO BLUE REPLACEMENT MEDICARE PART A & B Member Subscriber Plan / Payer ( fective 2019-Present) Name:[facility] Member ID:[id number] Relation to Subscriber:Self Name:[facility] Subscriber ID:[id number] Payer ID:[id number] Group ID:Not on file Type:Medicare Address: [employer] [address] MEDICARE HMO BLUE REPLACEMENT MEDICARE PART A & B MEDICARE HMO BLUE REPLACEMENT MEDICARE PART A & B [facility] MEDICARE HMO BLUE REPLACEMENT MEDICARE PART A & B [facility] MEDICARE HMO BLUE REPLACEMENT MEDICARE PART A & B MEDICARE HMO BLUE REPLACEMENT MEDICARE PART A & B Member Subscriber Plan / Payer (Ef fective 2019-Present) Name:[facility] Member ID:[id number] Relation to Subscriber:Self Name:[facility] Subscriber ID:[id number] Payer ID:[id number] Group ID:Not on file Type:Medicare Address: [employer] [address] MEDICARE HMO BLUE REPLACEMENT Care Teams Stock Handler Floorperson Relationship Specialty Start Date End Date Fam Carcamo MD PCP - General Internal Medicine 04/01/18 Additional Source Comments The information contained in this document represents components of the legal health record. It is not the complete legal health record.[facility]
--- OUTSIDE RECORDS SUMMARY | 2025-04-01 08:37 | XMS_ITS | Patient Health Record ---
Author Organization [facility] Address [address] [facility] [facility] [facility] [place] [address] Care Team Providers Care Oval Or Circular Glass Cutter Name Role Phone Fam Carcamo Primary Care Provider Stephen Harmon Unavailable [phone] Allergies Allergen (clinical drug ingredient) Drug/Non Drug [...] Status Risk Notes Problem Acquired hallux valgus ([id number]) Hallux valgus (acquired), right foot (M20.11) Active confirmed Problem Raynaud's disease (084751802) Raynaud's disease without gangrene (I73.00) Active confirmed Plan Of Treatment Pending Test Test Name Order Date X ray : Foot, right 3V 10/06/2022 Insurance Providers Payer Name Payer Address Payer Phone Subscriber Number Group Number Insured Name Patient Relationship to Insured Coverage Start Date Coverage End Date [employer] 65 Medicare Preferred [address] [place] [address] [id number] [facility] Self - patient is the insured Medical (General) History Medical History History ICD Code Back,Hip,and Knee pain Measles Mumps Chicken pox Glaucoma Heart disease Transfusions Surgical History Surgery Date(Month/Year)
== END 2025-04-01 08:19 | disposition home or self-care (01) ==
LOC: HO.MAMMO 08:18
PROVIDERS: PCP Internal Medicine; Visit Provider Internal Medicine
DX: Z12.31 Encounter for screening mammogram for malignant neoplasm of breast (principal); I11.0 Hypertensive heart disease with heart failure; I50.30 Unspecified diastolic (congestive) heart failure; Z78.0 Asymptomatic menopausal state
CPT/HCPCS: 77063; 77067; 77080

== ENCOUNTER → 2025-04-01 09:45 | Outpatient (BNV) | payer MEDICARE, SELFPAY | PROVIDERS: PCP Internal Medicine; Visit Provider Radiology Diagnostic Radiology | DX: E28.39 Other primary ovarian failure (principal) | CPT/HCPCS: 77080 ==

== ENCOUNTER 2025-04-14 13:19 | Outpatient (AMB) | payer BC, SELFPAY ==
[2025-04-14 13:20] VITALS: BP 110/70; PULSE 70; BMI 28.6
--- NOTE | 2025-04-14 13:20 | MHC.OFFVIS ---
Vital Signs 04/14/25 13:20 Height 5 ft 5 in Weight 171 lb 15.369 oz BMI 28.6 BP 110/70 Blood Pressure Location Lt brachial Position Sitting Pulse 70 Intake Visit Reasons: 3 mth f/up Intake Note: 3 month follow-up with ekg and St shashi Jacquard Card Cutter Required: No Allergies codeine (CODEINE) Allergy (Unknown, Verified 03/30/25 11:36) TACHYCARDIA, HIVES, DIZZINESS Medication List - Last Reconciled 04/14/25 by Rich Daniels MD apixaban (Eliquis) 5 mg PO BID cetirizine 10 mg PO DAILY PRN citalopram 10 mg PO DAILY citalopram 20 mg PO DAILY furosemide (Lasix) 20 mg PO DIRECTED 90 days latanoprost 0.005% 1 drp ophthalmic (eye) DAILY multivitamin 1 tab PO DAILY nitroglycerin 2% apply to toes once a day omega 7-nrv-jxa-fish oil 1,200 (144-216) mg (Fish Oil) 1 cap PO DAILY omeprazole 20 mg PO DAILY rosuvastatin 10 mg PO BEDTIME sotalol 80 mg PO BID HPI Comments Details: Madison comes for follow-up after pacemaker placement. She still having some discomfort at the pacer site and seems a bit location is slightly in his different site. However she has no fever or chills or warmth or tenderness or fluctuant swelling. She denies any lightheadedness, syncope. She says when it went into backup mode with V pacing she was not feeling very well. She has no prolonged palpitation irregular heartbeat. No orthopnea, PND, leg edema. No exertional chest pain. No lightheadedness, syncope. No bleeding issues or neurologic events. [facility] Medical History Chronic diarrhea Thrombocytopenia Raynauds disease Former smoker Sleep apnea Depression Atrial flutter History of cardioversion Hyperlipidemia (HFpEF) heart failure with preserved ejection fraction Sick sinus syndrome Cardiac pacemaker in situ Paroxysmal atrial fibrillation CAD (coronary artery disease) Surgical History Status post transcatheter aortic valve replacement Hx of cataract extraction Hx of appendectomy Hx of esophagogastroduodenoscopy Hx of colonoscopy Stented coronary artery Family History Father Hypertension Heart attack COPD (chronic obstructive pulmonary disease) Mother Hypertension Daughter Substance use disorder Social History Housing: Condominium Patient Tobacco Use Status: Never used Tobacco e-Cigarette/Vaping Use: Never Used service: No Current occupational status: retired Current occupational exposures/hazards: No Cognitive needs: No Hearing needs: No Vision needs: No Review of Systems Const Denies chills, Denies fatigue, Denies fever(s), Denies frequent falls, Denies weakness, Denies weight gain and Denies weight loss ENT Denies dizziness Card Denies chest pain, Denies leg edema, Denies lightheadedness, Denies palpitations, Denies dyspnea, Denies dyspnea on exertion, Denies orthopnea and Denies other (loss of consciousness) Resp Denies cough, Denies dyspnea and Denies dyspnea on exertion GI Denies hematochezia and Denies change in stool character Musc Denies abnormal gait, Denies muscle weakness, Denies numbness, Denies radiating pain into limb and Denies tingling Neuro Denies abnormal gait, Denies dizziness, Denies frequent falls, Denies numbness, Denies tingling and Denies weakness Endo Denies fatigue and Denies palpitations Physical Exam Vital Signs: Last Vital Signs Pulse 70 04/14/25 13:20 BP 110/70 04/14/25 13:20 BMI result Body Mass Index 28.6 Const General: cooperative, comfortable, alert, awake, Physically active and well groomed Nutritional Appearance: average body habitus Orientation/consciousness: patient oriented x3 Limitations: no limitations Neck Neck: Yes trachea midline, Yes supple and Yes no JVD Chest Chest palpation & inspection: other (Pacer pocket is well healed with no significant swelling or warmth) Resp Effort & Inspection: normal respiratory effort Auscultation: clear to auscultation bilaterally, no crackles and no wheezes Cardio Jugular venous distension: no JVD Palpation: normal PMI Rate: regular rate Rhythm: regular rhythm Heart sounds: S1 normal heart sound present and Murmur heart sound present systolic late, decrescendo and crescendo GI Auscultation: normal bowel sounds Skin General skin exam: no rashes or lesions noted Neuro General: patient oriented x3 and no focal motor deficits Extrem General: Yes no clubbing, cyanosis or edema and Yes other (Good distal pulses but noted purplish lesions on the left 2nd toe) Psych Appearance: grossly normal Office Procedures Cardiac Device Check Cardiac Device Check Details: Dual-chamber Saint Shashi pacemaker in place programmed in DDDR at 70 beats per minute. Unfortunately I could not over right atrial pacing thresholds in his set at high amplitude. As a result of battery life is only 4.3 years. I could not check her pacing thresholds in the atrium. Ventricular pacing thresholds are in auto capture mode. Atrial ventricular sensing is adequate. Pacing lead impedance is stable. 80176-IF Cardiac Device Check, pacemaker dual lead Procedure code (CPT) selection complete EKG Details: EKGs shows atrially paced, ventricularly sensed rhythm with mildly prolonged QTc interval 80408-Mietbhxoitdluhvaq, Complete Assessment & Plan Assessment & Plan (1) (HFpEF) heart failure with preserved ejection fraction: Comment: Echo 05/2024 EF 56%, grade 3 severe diastolic dysfunction, mild MR, moderate calcification of mitral valve Code(s): I50.30 - Unspecified diastolic (congestive) heart failure Category: Medical Plan: Heart failure preserved ejection fraction, clinically euvolemic and well compensated has done well with rhythm control approach. Continue rhythm control approach. Has take Lasix as needed. Continue daily weight monitoring avoidance salt loading. Continue aggressive blood pressure control which is currently well optimized. She understands management well. Advised to call me with any new symptoms. (2) CAD (coronary artery disease): Comment: s/p BETTY to distal circumflex 2006, cardiac cath 2017 no significant stenosis, established with [facility] Code(s): I25.10 - Atherosclerotic heart disease of [place] coronary artery without angina pectoris Category: Medical Plan: CAD with prior stenting of the circumflex artery without any recurrent symptoms are suggestive of ischemia. Continue aggressive risk factor modification. Currently on full oral anticoagulation therefore would avoid additional antiplatelet therapy. Continue statin therapy with target goal LDL less than 70 mg/dL. (3) Cardiac pacemaker in situ: Comment: dual-chamber Saint Shashi pacemaker placement 2006, replaced 2024, f/u Code(s): Z95.0 - Presence of cardiac pacemaker Category: Medical Plan: Cardiac pacemaker in-situ with recent pulse generator change. There appears to be increased threshold requirement in his atrium. Will have her be checked by company sales representative church furniture in the near future in the office as I was not able to over ride that. (4) Paroxysmal atrial fibrillation: Comment: Established with [facility] Code(s): I48.0 - Paroxysmal atrial fibrillation Category: Medical Plan: Paroxysmal atrial fibrillation has done well with rhythm control approach will continue pursue rhythm control approach. Continue sotalol therapy and doing well. Continue to monitor EKGs every 6 months. Renal function every 6 months. Continue full oral anticoagulation, currently on Eliquis 5 mg b.i.d.. Semi annual renal function as before. (5) Status post transcatheter aortic valve replacement: Comment: 26 mm Medtronic bioprosthetic valve, with normal mean gradient of 6 mm Hg with no paravalvular leak, April 2024 for severe aortic stenosis Code(s): Z95.2 - Presence of prosthetic heart valve Category: Medical Plan: Status post transcatheter aortic valve replacement with clinically normally functioning aortic valve. Continue SBE prophylaxis as per ACC/[place] guidelines. Currently on full oral anticoagulation. Continue aggressive risk factor modification. Follow-up echocardiogram in near future. Will follow up in the clinic in 6 months time, sooner PRN. Thank you for allowing me to partake in her care Orders: Orders CA echo transthoracic complete 2 Months Z95.2 - Presence of prosthetic heart valve Coding Level of Care Code Est Pt Level 4 (67068) Diagnoses (HFpEF) heart failure with preserved ejection fraction I50.30 CAD (coronary artery disease) I25.10 Cardiac pacemaker in situ Z95.0 Paroxysmal atrial fibrillation I48.0 Status post transcatheter aortic valve replacement Z95.2 CPT Codes Cardiac Device Check - Cardiac Device 2: [id number] Cardiac Device Check, pacemaker dual lead ([id number]) EKG - CPT: 51907-Zjywtpfnpzfubifjt, Complete ([id number])
--- OUTSIDE RECORDS SUMMARY | 2025-04-14 18:37 | XMS_ITS | Clinical Summary ---
Author Organization [facility] Address [address] [facility] [address] [place] [address] Phone Care Team Providers Care Sterile Supply Technician Name Role Phone Fam Carcamo MD Primary [...] BLUE REPLACEMENT MEDICARE PART A & B [facility] MEDICARE HMO BLUE REPLACEMENT MEDICARE PART A & B MEDICARE HMO BLUE REPLACEMENT MEDICARE PART A & B Member Subscriber Plan / Payer ( fective 2019-Present) Name:Madison House Member ID:[id number] Relation to Subscriber:Self Name:Madison House Subscriber ID:[id number] Payer ID:[id number] Group ID:Not on file Type:Medicare Address: [employer] [address] MEDICARE HMO BLUE REPLACEMENT MEDICARE PART A & B MEDICARE HMO BLUE REPLACEMENT MEDICARE PART A & B [facility] MEDICARE HMO BLUE REPLACEMENT MEDICARE PART A & B [facility] MEDICARE HMO BLUE REPLACEMENT MEDICARE PART A & B MEDICARE HMO BLUE REPLACEMENT MEDICARE PART A & B Member Subscriber Plan / Payer (Ef fective 2019-Present) Name:Madison House Member ID:[id number] Relation to Subscriber:Self Name:Madison House Subscriber ID:[id number] Payer ID:[id number] Group ID:Not on file Type:Medicare Address: [employer] [address] MEDICARE HMO BLUE REPLACEMENT Care Teams Sterile Supply Technician Relationship Specialty Start Date End Date Fam Carcamo MD PCP - General Internal Medicine 04/01/18 Additional Source Comments The information contained in this document represents components of the legal health record. It is not the complete legal health record.[facility]
--- OUTSIDE RECORDS SUMMARY | 2025-04-14 18:38 | XMS_ITS | Patient Health Record ---
Author Organization [facility] Address [address] [facility] [place] [address] Care Team Providers Care Tobacco Hanger Name Role Phone Fam Carcamo Primary Care Provider Stephen Harmon Unavailable [phone] Allergies Allergen (clinical drug ingredient) Drug/Non Drug [...] Status Risk Notes Problem Acquired hallux valgus (46990408) Hallux valgus (acquired), right foot (M20.11) Active confirmed Problem Raynaud's disease (899907939) Raynaud's disease without gangrene (I73.00) Active confirmed Plan Of Treatment Pending Test Test Name Order Date X ray : Foot, right 3V 10/06/2022 Insurance Providers Payer Name Payer Address Payer Phone Subscriber Number Group Number Insured Name Patient Relationship to Insured Coverage Start Date Coverage End Date BlueCare 65 Medicare Preferred [address] [place] [address] [id number] Madison House Self - patient is the insured Medical (General) History Medical History History ICD Code Back,Hip,and Knee pain Measles Mumps Chicken pox Glaucoma Heart disease Transfusions Surgical History Surgery Date(Month/Year)
== END 2025-04-14 14:00 | disposition home or self-care (01) ==
LOC: HO.HCS 13:20
PROVIDERS: PCP Internal Medicine; Visit Provider Internal Medicine Cardiovascular Disease
DX: Z95.2 Presence of prosthetic heart valve (principal)
CPT/HCPCS: 93010; 93280

== ENCOUNTER → 2025-04-14 13:19 | Outpatient (BNVA) | payer BC, SELFPAY | PROVIDERS: PCP Internal Medicine; Visit Provider Internal Medicine Cardiovascular Disease | DX: I11.0 Hypertensive heart disease with heart failure (principal); I50.30 Unspecified diastolic (congestive) heart failure; I25.10 Atherosclerotic heart disease of native coronary artery without angina pectoris; I48.0 Paroxysmal atrial fibrillation; Z95.0 Presence of cardiac pacemaker; Z95.2 Presence of prosthetic heart valve | CPT/HCPCS: 93005; 93280 ==

== ENCOUNTER 2025-04-24 09:23 | Outpatient (REF) | payer BC, SELFPAY ==
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
--- OUTSIDE RECORDS SUMMARY | 2025-04-24 10:02 | XMS_ITS | Clinical Summary ---
Author Organization [facility] Address [address] [facility] [address] [place] [phone] Phone Care Team Providers Care Lieutenant Ballistics Name Role Phone Fam Carcamo MD Primary [...] BLUE REPLACEMENT MEDICARE PART A & B [facility] MEDICARE HMO BLUE REPLACEMENT MEDICARE PART A & B MEDICARE HMO BLUE REPLACEMENT MEDICARE PART A & B Member Subscriber Plan / Payer ( fective 2019-Present) Name:Madison House Member ID:[id number] Relation to Subscriber:Self Name:Madison House Subscriber ID:[id number] Payer ID:[id number] Group ID:Not on file Type:Medicare Address: [employer] [address] MEDICARE HMO BLUE REPLACEMENT MEDICARE PART A & B MEDICARE HMO BLUE REPLACEMENT MEDICARE PART A & B [facility] MEDICARE HMO BLUE REPLACEMENT MEDICARE PART A & B [facility] MEDICARE HMO BLUE REPLACEMENT MEDICARE PART A & B MEDICARE HMO BLUE REPLACEMENT MEDICARE PART A & B Member Subscriber Plan / Payer (Ef fective 2019-Present) Name:Madison House Member ID:[id number] Relation to Subscriber:Self Name:Madison House Subscriber ID:[id number] Payer ID:[id number] Group ID:Not on file Type:Medicare Address: [employer] [address] MEDICARE HMO BLUE REPLACEMENT Care Teams Lieutenant Ballistics Relationship Specialty Start Date End Date Fam Carcamo MD PCP - General Internal Medicine 04/01/18 Additional Source Comments The information contained in this document represents components of the legal health record. It is not the complete legal health record.[facility]
--- OUTSIDE RECORDS SUMMARY | 2025-04-24 10:02 | XMS_ITS | Patient Health Record ---
Author Organization [facility] Address [address] [facility] [place] [address] Care Team Providers Care Nurse Plastics Name Role Phone Fam Carcamo Primary Care Provider Stephen Harmon Unavailable [phone] Allergies Allergen (clinical drug ingredient) Drug/Non Drug [...] Status Risk Notes Problem Acquired hallux valgus (99623474) Hallux valgus (acquired), right foot (M20.11) Active confirmed Problem Raynaud's disease (239767597) Raynaud's disease without gangrene (I73.00) Active confirmed Plan Of Treatment Pending Test Test Name Order Date X ray : Foot, right 3V 10/06/2022 Insurance Providers Payer Name Payer Address Payer Phone Subscriber Number Group Number Insured Name Patient Relationship to Insured Coverage Start Date Coverage End Date BlueCare 65 Medicare Preferred [address] [place] [address] [id number] Madison House Self - patient is the insured Medical (General) History Medical History History ICD Code Back,Hip,and Knee pain Measles Mumps Chicken pox Glaucoma Heart disease Transfusions Surgical History Surgery Date(Month/Year)
== END 2025-04-24 09:24 | disposition home or self-care (01) ==
LOC: HO.MAMMO 09:23
PROVIDERS: PCP Internal Medicine; Visit Provider Internal Medicine
DX: N64.89 Other specified disorders of breast (principal)
CPT/HCPCS: 76642; 77061; 77065

== ENCOUNTER → 2025-04-24 09:30 | Outpatient (BNV) | payer BC, SELFPAY | PROVIDERS: PCP Internal Medicine; Visit Provider Internal Medicine | DX: R92.8 Other abnormal and inconclusive findings on diagnostic imaging of breast (principal) | CPT/HCPCS: 76642; 77065; G0279 ==